=== PATIENT | female | born 1950 | race Caucasian/White ===

== ENCOUNTER → 2019-12-22 16:07 | Outpatient (CLI) | payer BC, SELFPAY ==
[2019-12-22 16:32] LABS: Basophils % 0.5 % (0.1-2.0); Eosinophils % 0.7 % (0.1-12.0); Hematocrit 45.4 % (37.0-47.0); Hemoglobin 14.6 g/dL (12.2-16.2); Lymphocytes # 1.3 K/mm3 (0.7-4.5); Lymphocytes % 21.9 % (10-50); Mean Corpuscular HGB Conc 32.1 g/dL (31.8-35.4); Mean Corpuscular Hemoglobin 29.5 pg (27.0-31.2); Mean Corpuscular Volume 91.9 fl (81-99); Mean Platelet Volume 7.6 fl (7.4-10.4); Monocytes # 0.4 K/mm3 (0.1-1.0); Monocytes % 6.2 % (1.7-9.3); Neutrophils # 4.3 K/mm3 (1.8-7.8); Neutrophils % 70.7 % (37.0-80.0); Platelet Count 302 K/mm3 (142-424); Red Blood Count 4.94 M/mm3 (4.20-5.40)
[2019-12-22 17:55] LABS: Chloride 101 mmol/L (98-107); Potassium 3.9 mmoL/L (3.5-5.1); Sodium 136 mmol/L (136-145)
[2019-12-22 17:58] LABS: Alanine Aminotransferase 186 U/L (12-78); Albumin Level 4.1 g/dl (3.5-5.0); Albumin/Globulin Ratio 1.5 (1.1-1.8); Alkaline Phosphatase 365 U/L (38-126); Anion Gap 12.9 mEq/L (5-15); Aspartate Amino Transferase 104 U/L (14-36); Blood Urea Nitrogen 11 mg/dl (7-17); Carbon Dioxide 26 mmol/L (22.0-30.0); Estimated Glomerular Filt Rate 99 ml/min (>60); GFR (African American) 120 ML/MIN (>60); Globulin 2.8 g/dL (1.3-3.2); Total Protein,Serum 6.9 g/dl (6.3-8.2)
[2019-12-22 17:59] LABS: Calcium 9.5 mg/dl (8.4-10.2); Glucose 136 mg/dl (74-100)
[2019-12-22 18:28] LABS: Thyroid Stimulating Hormone 2.89 uIU/mL (0.465-4.68)
== END ==
PROVIDERS: Visit Provider Nurse Practitioner Family
DX: L50.9 Urticaria, unspecified (principal); L23.9 Allergic contact dermatitis, unspecified cause
CPT/HCPCS: 36415; 80053; 84443; 85025

== ENCOUNTER → 2019-12-26 09:11 | Outpatient (CLI) | payer BC, SELFPAY ==
--- NOTE | 2019-12-26 09:18 | US_ITS ---
PROCEDURE: US ABDOMEN LIMITED CLINICAL INDICATION: ABN LIVER ENZYMES Abnormal liver function test COMPARISON: No exams were available for comparison FINDINGS: PANCREAS: Unremarkable. No obvious mass or abnormal fluid collection. No ductal dilatation LIVER: There is intra and extrahepatic biliary ductal dilatation. The common bile duct measures up to 15 mm. There is appropriate direction of blood flow within a non dilated portal vein. There is a small hyperechoic lesion along the anterior aspect of the right hepatic lobe nonspecific RIGHT KIDNEY: . GALLBLADDER: There is a small amount of sludge noted along the posterior wall the gallbladder. No stones, gallbladder wall thickening, or pericholecystic fluid. The gallbladder is mildly distended. The distal aspect of the common bile duct is not visualized. IMPRESSION: Intra and extrahepatic biliary ductal dilatation measuring up to 15 mm. Obstruction of the distal aspect of the common bile duct should be excluded. Recommend CT with contrast for further evaluation initially. If this is not conclusive then MRI with MRCP may provide further evaluation. Dictated by: Pramod Camilo MD 12/26/2019 14:16 Electronically signed by Pramod Camilo MD in [place] 12/26/2019 14:16
[2019-12-26 10:33] LABS: Basophils % 0.3 % (0.1-2.0); Eosinophils # 0.1 K/mm3 (0.0-0.4); Hematocrit 47.3 % (37.0-47.0); Hemoglobin 14.9 g/dL (12.2-16.2); Lymphocytes # 2.3 K/mm3 (0.7-4.5); Lymphocytes % 24.9 % (10-50); Mean Corpuscular HGB Conc 31.6 g/dL (31.8-35.4); Mean Corpuscular Hemoglobin 29.2 pg (27.0-31.2); Mean Corpuscular Volume 92.5 fl (81-99); Mean Platelet Volume 8.1 fl (7.4-10.4); Monocytes # 0.4 K/mm3 (0.1-1.0); Monocytes % 4.8 % (1.7-9.3); Neutrophils # 6.4 K/mm3 (1.8-7.8); Platelet Count 375 K/mm3 (142-424); Prothrombin Time 9.4 seconds (9.4-11.8); Red Blood Count 5.12 M/mm3 (4.20-5.40); Red Cell Distribution Width 13.2 % (11.5-17.5); White Blood Count 9.3 K/mm3 (4.8-10.8)
[2019-12-26 12:50] LABS: Chloride 101 mmol/L (98-107); Potassium 4.4 mmoL/L (3.5-5.1); Sodium 139 mmol/L (136-145)
[2019-12-26 12:52] LABS: Blood Urea Nitrogen 15 mg/dl (7-17); Estimated Glomerular Filt Rate 99 ml/min (>60); GFR (African American) 120 ML/MIN (>60)
[2019-12-26 12:53] LABS: Alanine Aminotransferase 342 U/L (12-78); Albumin Level 3.9 g/dl (3.5-5.0); Albumin/Globulin Ratio 1.4 (1.1-1.8); Alkaline Phosphatase 314 U/L (38-126); Anion Gap 11.4 mEq/L (5-15); Aspartate Amino Transferase 179 U/L (14-36); Calcium 9.6 mg/dl (8.4-10.2); Carbon Dioxide 31 mmol/L (22.0-30.0); Globulin 2.7 g/dL (1.3-3.2); Glucose 97 mg/dl (74-100); Total Protein,Serum 6.6 g/dl (6.3-8.2)
[2019-12-27 06:39] LABS: Hep A Ab, IgM Negative (Negative); Hepatitis B Core Antibody IgM Negative (Negative); Hepatitis B Surface Antigen Negative (Negative)
[2019-12-27 09:51] LABS: Hepatitis C Antibody <0.1 s/co ratio (0.0-0.9)
[2019-12-29 07:19] LABS: Antinuclear Antibodies, IFA Negative (.); Mitochondrial (M2) Antibody <20.0 Units (0.0-20.0)
== END ==
PROVIDERS: PCP Internal Medicine Adolescent Medicine; Visit Provider Nurse Practitioner Family
DX: R74.8 Abnormal levels of other serum enzymes (principal); E80.6 Other disorders of bilirubin metabolism
CPT/HCPCS: 36415; 76705; 80053; 80074; 85025; 85610; 86038; 86256

== ENCOUNTER 2020-01-06 09:13 | Day surgery (SDC) | payer BC, SELFPAY ==
--- NOTE | 2020-01-06 10:17 | SUR.PREOP ---
Pt. was registered and went to the waiting room. After waiting for a few minutes, she decided that she no longer wanted to have the procedure done due to anxiety about the procedure. After talking to Dr. Willson the patient decided to have the procedure rescheduled for next January 12.
--- NOTE | 2020-01-11 15:37 | SUR.PREOP ---
01/06/20-- talked to patient in waiting area. Patient wanted to re-schedule for next week.
== END 2020-01-06 10:00 | disposition home or self-care (01) ==
PROVIDERS: PCP Internal Medicine Adolescent Medicine; Visit Provider Internal Medicine Gastroenterology
DX: Z53.29 Procedure and treatment not carried out because of patient's decision for other reasons (principal)

== ENCOUNTER → 2020-01-18 13:17 | Outpatient (CLI) | payer BC, SELFPAY ==
[2020-01-18 14:13] LABS: Basophils # 0.2 K/mm3 (0-0.2); Basophils % 1.6 % (0.1-2.0); Eosinophils # 0.1 K/mm3 (0.0-0.4); Eosinophils % 1.1 % (0.1-12.0); Hematocrit 45.5 % (37.0-47.0); Lymphocytes # 2.2 K/mm3 (0.7-4.5); Lymphocytes % 23.2 % (10-50); Mean Corpuscular HGB Conc 30.7 g/dL (31.8-35.4); Mean Corpuscular Volume 97.6 fl (81-99); Mean Platelet Volume 8.8 fl (7.4-10.4); Monocytes # 0.4 K/mm3 (0.1-1.0); Monocytes % 4.6 % (1.7-9.3); Neutrophils # 6.5 K/mm3 (1.8-7.8); Neutrophils % 69.4 % (37.0-80.0); Platelet Count 434 K/mm3 (142-424); Red Blood Count 4.66 M/mm3 (4.20-5.40); Red Cell Distribution Width 14.5 % (11.5-17.5); White Blood Count 9.3 K/mm3 (4.8-10.8)
[2020-01-18 15:08] LABS: Alanine Aminotransferase 52 U/L (12-78); Albumin Level 4.1 g/dl (3.5-5.0); Albumin/Globulin Ratio 1.4 (1.1-1.8); Alkaline Phosphatase 319 U/L (38-126); Anion Gap 12.6 mEq/L (5-15); Aspartate Amino Transferase 49 U/L (14-36); Blood Urea Nitrogen 16 mg/dl (7-17); Calcium 9.7 mg/dl (8.4-10.2); Carbon Dioxide 22 mmol/L (22.0-30.0); Chloride 104 mmol/L (98-107); Estimated Glomerular Filt Rate 99 ml/min (>60); GFR (African American) 120 ML/MIN (>60); Glucose 148 mg/dl (74-100); Potassium 3.6 mmoL/L (3.5-5.1); Sodium 135 mmol/L (136-145); Total Protein,Serum 7.1 g/dl (6.3-8.2)
[2020-01-18 17:46] LABS: Amylase 58 U/L (30-110); Lipase 95 U/L (23-300)
[2020-01-20 11:20] LABS: CA 19-9 157 U/mL (0-35)
[2020-01-20 11:21] LABS: CEA 3.1 ng/mL (0.0-4.7); Cancer Antigen (CA) 125 22.2 U/mL (0.0-38.1)
[2020-01-20 14:09] LABS: Alkaline Phosphatase 386 IU/L (39-117); Bone Fraction: 14 % (14-68); Liver Fraction: 84 % (18-85)
[2020-01-20 14:50] LABS: Intestinal Frac.: 2 % (0-18)
== END ==
PROVIDERS: Visit Provider Nurse Practitioner Family
DX: R17 Unspecified jaundice (principal); R74.8 Abnormal levels of other serum enzymes; R63.4 Abnormal weight loss; E80.6 Other disorders of bilirubin metabolism; L50.9 Urticaria, unspecified
CPT/HCPCS: 36415; 80053; 82150; 82378; 83690; 84075; 84080; 85025; 86316

== ENCOUNTER → 2020-01-23 10:34 | Outpatient (CLI) | payer BC, SELFPAY ==
--- NOTE | 2020-01-23 10:53 | CT_ITS ---
PROCEDURE: CT ABDOMEN PELVIS WO/W CON CLINICAL INDICATION: JAUNDICE,DILATED BILE DUCT,HIGH SERUM CARBOHYDRATE Right upper quadrant pain COMPARISON: US ABDOMEN LIMITED from 12/26/2019 TECHNIQUE: IV Contrast: 75ML OPTIRAY 350 Oral Contrast none Axial images obtained with sagittal and coronal reformats. All CT scans at the facility use one or more dose reduction, viz: automated exposure control, ma/kV adjustment per patient size (including targeted exams where dose is matched to indication, i.e. head), or iterative reconstruction technique. FINDINGS: LOWER THORAX: No acute finding ABDOMEN & PELVIS: There is moderate dilatation of both intra and extrahepatic bile ducts. The common bile duct is enlarged measuring up to 1.8 cm in diameter. A definite common bile duct stone is not identified. The coronal reformatted images demonstrates abrupt occlusion of the distal common bile duct with suggestion thickening involving the distal most aspect of the common bile duct suspicious for a stricture. There is some mild heterogeneous density within mildly prominent pancreatic head. Pancreatic duct is also dilated. There is some rounding off of the uncinate process of the pancreatic head. There are several areas of decreased attenuation within the liver with a least 3 areas of decreased density 2 in the right hepatic lobe and 1 in the left hepatic lobe measuring up to 1.3 cm and may be due to hepatic cysts. There are few small epigastric and periportal lymph nodes. The gallbladder is distended The spleen has an unremarkable appearance. There is some minimal calcification involving the peripheral aspect of the right kidney with some sub adjacent low-density. The whole area measures approximately 1 cm. This is nonspecific. The left kidney and adrenal glands are unremarkable. There is no evidence of appendicitis or diverticulitis. There is colonic diverticulosis. There is a persistent area of thickening involving the mid to proximal aspect of the transverse colon. This is present on all 3 imaging phases with a length of approximately 6 cm. This could be due to an area of underdistention or an area of colitis. There is an area of sclerosis involving the right ilium laterally at 12 mm and could be due to a bone island. IMPRESSION: 1. Extensive intra and extrahepatic biliary ductal dilatation with abrupt occlusion/narrowing of the distal aspect of the common bile duct with pancreatic ductal dilatation indicating a double duct sign. The pancreatic head has a somewhat enlarged slightly heterogeneous appearance. Cannot exclude the possibility of an infiltrating mass in the head of the pancreas. MRI without and with enhancement may provide further evaluation. MRCP also suggested. A malignant or benign stricture at the ampullary is also consideration. Also consider ERCP for further evaluation. 2. Colonic diverticulosis without diverticulitis. 3. Probable hepatic hepatic cysts Dictated by: Pramod Camilo MD 01/23/2020 13:05 Electronically signed by Pramod Camilo MD in [place] 01/23/2020 13:05
[2020-01-23 11:07] LABS: Blood Urea Nitrogen 9 mg/dl (7-17); Estimated Glomerular Filt Rate 99 ml/min (>60); GFR (African American) 120 ML/MIN (>60)
[2020-01-23 11:12] LABS: Chloride 97 mmol/L (98-107); Sodium 132 mmol/L (136-145)
[2020-01-23 11:13] LABS: Potassium 3.4 mmoL/L (3.5-5.1)
[2020-01-23 11:15] LABS: Alanine Aminotransferase 56 U/L (12-78); Albumin/Globulin Ratio 1.1 (1.1-1.8); Alkaline Phosphatase 377 U/L (38-126); Anion Gap 11.4 mEq/L (5-15); Aspartate Amino Transferase 55 U/L (14-36); Bilirubin,Total 16.6 mg/dl (0.2-1.3); Carbon Dioxide 27 mmol/L (22.0-30.0); Globulin 3.7 g/dL (1.3-3.2); Total Protein,Serum 7.7 g/dl (6.3-8.2)
[2020-01-23 11:16] LABS: Glucose 153 mg/dl (74-100)
[2020-01-23 11:18] LABS: Basophils # 0.1 K/mm3 (0-0.2); Basophils % 0.5 % (0.1-2.0); Eosinophils # 0.2 K/mm3 (0.0-0.4); Eosinophils % 1.3 % (0.1-12.0); Hematocrit 42.7 % (37.0-47.0); Hemoglobin 13.3 g/dL (12.2-16.2); Lymphocytes # 1.9 K/mm3 (0.7-4.5); Lymphocytes % 16.9 % (10-50); Mean Corpuscular HGB Conc 31.2 g/dL (31.8-35.4); Mean Corpuscular Hemoglobin 29.2 pg (27.0-31.2); Mean Corpuscular Volume 93.7 fl (81-99); Monocytes # 0.6 K/mm3 (0.1-1.0); Neutrophils # 8.6 K/mm3 (1.8-7.8); Neutrophils % 76.3 % (37.0-80.0); Platelet Count 520 K/mm3 (142-424); Red Blood Count 4.56 M/mm3 (4.20-5.40); Red Cell Distribution Width 15.3 % (11.5-17.5); White Blood Count 11.3 K/mm3 (4.8-10.8)
== END ==
PROVIDERS: PCP Internal Medicine Adolescent Medicine; Visit Provider Nurse Practitioner Family
DX: K83.8 Other specified diseases of biliary tract (principal); R17 Unspecified jaundice; R97.8 Other abnormal tumor markers
CPT/HCPCS: 36415; 74178; 80053; 85025; Q9967

== ENCOUNTER → 2020-01-25 10:51 | Outpatient (CLI) | payer BC, SELFPAY ==
[2020-01-26 14:16] LABS: Covid-19 Nasal PCR Sendout Lex NOT DETECTED
== END ==
PROVIDERS: Visit Provider Internal Medicine Gastroenterology
DX: Z03.818 Encounter for observation for suspected exposure to other biological agents ruled out (principal)
CPT/HCPCS: U0004

== ENCOUNTER 2020-01-27 06:06 | Day surgery (SDC) | payer BC, SELFPAY ==
--- NOTE | 2020-01-24 13:51 | SUR.PREOP ---
01/24/2020 @ 1130--PHONE CALL MADE TO PATIENT. PATIENT UNDERSTANDS THAT LAB WORK AND COVID TESTING NEEDS TO BE COMPLETED BY 11 ON 01/25/2020. PATIENT UNDERSTANDS IF LAB WORK AND COVID-19 TESTS ARE NOT COMPLETED BY 12PM ON THAT DATE, THE SURGERY SCHEDULED WILL BE CANCELLED AND RESCHEDULED FOR ANOTHER TIME.
[2020-01-25 10:37] VITALS: BMI 26.6
[2020-01-27] VITALS (9 sets, daily range): BP systolic 128–149; BP diastolic 75–86; PULSE 70–137; RESP 18–20; TEMP 36.2–36.7; O2SAT 96–100
--- NOTE | 2020-01-27 06:30 | FL_ITS ---
PROCEDURE: FL ERCP CLINICAL INDICATION: abnormal liver function Obstructed common bile duct, possible pancreatic head mass COMPARISON: CT ABDOMEN PELVIS WO/W CON from 01/23/2020 FINDINGS: Fluoroscopy time: 5 minutes and 20 seconds Select images are submitted from the ERCP showing endoscope in place with contrast in the common bile duct with abrupt occlusion of the distal aspect of the common bile duct with biliary ductal dilatation. A stent was placed through the occlusion. IMPRESSION: Distal abrupt common bile duct obstruction status post stent placement. Malignant stricture is considered Dictated by: Pramod Camilo MD 01/31/2020 08:56 Electronically signed by Pramod Camilo MD in [place] 01/31/2020 08:56
--- NOTE | 2020-01-27 06:56 | HMH.PROC ---
[facility] Procedure Note Procedure Note:: ERCP procedure Report: Endoscopic retrograde cholangiopancreatography with biliary sphincterotomy, biopsies, brushings and stent placement Endoscopist: Vargas Willson II, MD Referring Physician: Eric Richmond M.D./RICH Larson Date of Procedure: January 27, 2020 Equipment: Olympus 180 side viewing endoscope duodenoscope Sedation: MAC sedation Indication: Mrs. Agudelo is a 69-year-old female who initially presented with pruritus. This had worsened. She also had noted some darkened urine. Lab work and Nohelia had shown normal CBC but her liver chemistries were elevated with AST 104, ALT 186 and total bilirubin 5.0. The patient's alkaline phosphatase was 365. The patient did have a CAT scan of the abdomen on January 25, 2020 and there was intra-and extrahepatic biliary ductal dilation with the common bile duct measuring up to 15 mm. Obstruction of the distal aspect of the common bile duct appeared to be present. The patient had anxiety about proceeding with ERCP initially. Repeat labs and CT scan have been performed within the last week. Her more recent CAT scan did show heterogeneous enlarged pancreas with a double duct sign with pancreatic and biliary dilation. The patient's total bilirubin increased to 16.6. The patient's CA-19-9 was elevated at 157. ERCP is performed for diagnostic/therapeutic purposes. Procedure: Prior to the procedure, a history and physical exam was performed, and patient's medications and allergies were reviewed. The risks, benefits and alternatives of the sedation and procedure were discussed with the patient. All questions were answered and informed consent was obtained. The patient was brought to the fluoroscopic radiology room. Patient identification and proposed procedure were verified by the physician and the nurse. The patient was placed in a swimmer's position between left lateral decubitus and prone position and the scope was passed under direct vision. Throughout the procedure, the patient's blood pressure, pulse, and oxygen saturations were monitored continuously. The ERCP was accomplished without difficulty. The patient tolerated the procedure well. Findings: The side-viewing duodenal scope was passed directly into the upper esophagus and advanced to the second portion of the duodenum. The esophagus, stomach and duodenum were grossly normal. The ampulla was well visualized. Both the pancreatic duct and common bile duct were cannulated. There was stricturing of the pancreatic duct in the head of the gland. Full filling of contrast of the body and tail were not performed. Next, the common bile duct was cannulated. The cholangiogram did show a distal CBD stricture that was 18 to 20 mm in length. There was proximal biliary ductal dilation within the intra-and extrahepatic biliary system. The proximal common bile duct was approximately 17 mm diameter. Next, a biliary sphincterotomy was performed. Cold biopsy forceps were then directly used to take biopsies of the stricture and this was done under fluoroscopic guidance with some cannulation of the bile duct with the biopsy forceps. Next, brushings were performed of the stricture. Lastly, because of uncertainty about resectability, a 10 Occitan/7 cm straight Stites stent was placed and deployed across the stricture with excellent decompression of the biliary system. The procedure was then ended after deployment of the stent. Impression: 1. 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 We will discuss the findings and will likely send to pancreatic surgeon since there is not yet determination of resectability. She will likely need endoscopic ultrasound or more definitive pancreatic protocol imaging to determin
--- NOTE | 2020-01-27 08:04 | HMH.ANESCL ---
[facility] Anesthesia Checklist - Patient Identification Patient Identification: Arm Band, Verbal (Name & ) - Structural Data Admitted From: Home Planned Operative Procedure/s: ercp Consent for Planned Operative Procedure(s) Verified: Yes Verified Documents: History and Physical - NPO Status Verified Time NPO: 00:00 - Additional verifications Anesthesia Reactions: No Hx Blood Transfusions: No Blood Transfusion Reaction: No Cephalosporin Allergy: No Previous Colonoscopy: No - Cardiovascular Assessment Heart Sounds: S1 & S2 Pulse Strength: Baseline Pulse Rhythm: Regular - Airway Assessment C-Spine Mobility Assessed: Yes TMJ Mobility Assessed: No Dentition: Good Dentition - Neurological Assessment Level of Consciousness: Awake, Alert, Appropriate Hx Seizures: No Numbness or tingling in extremities: No - Anesthesia Plan Anesthesia Risk discussed: Yes Anesthesia Plan: Verified ASA Class: II Anesthesia Type: MAC [facility] History I have reviewed the patient's past medical history: Yes Medical History: Reports:: MRSA (breast) Denies:: Cancer, Diabetes Mellitus Type 1, Diabetes Mellitus Type 2, Internal Pacemaker, Seizures *Have you ever received a pneumonia vaccine?: No *Have you received a flu vaccine this season?: No Anesthesia experience/problems:: none Other Surgeries: No: Pacemaker Amputation: No Fractures: Yes - *Social History Educational Level: Attended College Smoking Status: Never smoker Alcohol Intake: never Substance Use Type: other *Occupational Status:: employed Housing: house Household Members: none *Travel in the last 8 weeks: None Family Hx:: Unable to obtain
== END 2020-01-27 09:00 | disposition home or self-care (01) ==
LOC: OUTP 06:07
PROVIDERS: PCP Internal Medicine Adolescent Medicine; Visit Provider Internal Medicine Gastroenterology
PROC: (CPT 43274; principal; 2020-01-27 07:00)
DX: K83.1 Obstruction of bile duct (principal); D49.0 Neoplasm of unspecified behavior of digestive system
CPT/HCPCS: 43274; 74330; C2617; J2704; Q9967

== ENCOUNTER → 2020-04-12 10:11 | Outpatient (CLI) | payer BC, SELFPAY ==
[2020-04-12 11:35] LABS: Basophils % 0.4 % (0.1-2.0); Eosinophils # 0.5 K/mm3 (0.0-0.4); Eosinophils % 4.6 % (0.1-12.0); Hematocrit 38.4 % (37.0-47.0); Hemoglobin 12.9 g/dL (12.2-16.2); Lymphocytes # 1.8 K/mm3 (0.7-4.5); Lymphocytes % 17.1 % (10-50); Mean Corpuscular HGB Conc 33.7 g/dL (31.8-35.4); Mean Corpuscular Hemoglobin 30.1 pg (27.0-31.2); Mean Corpuscular Volume 89.3 fl (81-99); Mean Platelet Volume 7.7 fl (7.4-10.4); Monocytes # 0.6 K/mm3 (0.1-1.0); Monocytes % 5.8 % (1.7-9.3); Neutrophils # 7.6 K/mm3 (1.8-7.8); Neutrophils % 72.2 % (37.0-80.0); Platelet Count 399 K/mm3 (142-424); Red Cell Distribution Width 13.6 % (11.5-17.5); White Blood Count 10.5 K/mm3 (4.8-10.8)
[2020-04-12 11:44] LABS: Chloride 97 mmol/L (98-107); Potassium 4.5 mmoL/L (3.5-5.1); Sodium 136 mmol/L (136-145)
[2020-04-12 11:47] LABS: Anion Gap 16.5 mEq/L (5-15); Blood Urea Nitrogen 7 mg/dl (7-17); Calcium 9.7 mg/dl (8.4-10.2); Carbon Dioxide 27 mmol/L (22.0-30.0); Estimated Glomerular Filt Rate 123 ml/min (>60); GFR (African American) 148 ML/MIN (>60); Glucose 122 mg/dl (74-100)
[2020-04-12 16:58] LABS: Coronavirus 19 IgG Antibody Negative (Negative); Coronavirus 19 IgM Antibody Negative (Negative)
== END ==
PROVIDERS: Visit Provider Surgery
DX: C25.9 Malignant neoplasm of pancreas, unspecified (principal); Z01.818 Encounter for other preprocedural examination
CPT/HCPCS: 36415; 80048; 85025; 86328

== ENCOUNTER 2020-04-13 06:00 | Day surgery (SDC) | payer BC, SELFPAY ==
[2020-04-11 09:21] VITALS: BMI 24.2
[2020-04-13] VITALS (9 sets, daily range): BP systolic 132–156; BP diastolic 66–102; PULSE 79–119; RESP 12–18; TEMP 36.2–36.9; O2SAT 93–98
--- NOTE | 2020-04-13 | XR_ITS ---
PROCEDURE: XR CHEST AP CLINICAL HISTORY: PORT A CATH PLACEMENT IN OR COMPARISON: No exams were available for comparison FINDINGS: A right subclavian Port-A-Cath is placed with the tip terminating in the mid SVC. No acute bony abnormalities. The cardiomediastinal silhouette and pulmonary vascularity are within normal limits. The lungs are under expanded. There is left basilar linear subsegmental atelectasis. No demonstrated consolidation or pneumothorax. There is obscuration of the left costophrenic sulcus. Osteopenia. Chronic mild bony deformity of the left humeral neck. IMPRESSION: 1. Adequately placed a right Port-A-Cath. 2. No pneumothorax. Lungs are under expanded. Left basilar linear atelectasis. Dictated by: Lianna Ramirez 04/13/2020 16:42 Electronically signed by Lianna Ramirez in [place] 04/13/2020 16:42
--- NOTE | 2020-04-13 08:00 | P.PN_ITS ---
[facility] Anesthesia Checklist - Structural Data Admitted From: Home Planned Operative Procedure/s: james cath Consent for Planned Operative Procedure(s) Verified: Yes - Additional verifications Anesthesia Reactions: No Hx Blood Transfusions: No Blood Transfusion Reaction: No - Airway Assessment TMJ Mobility Assessed: Yes Dentition: Poor Dentition - Neurological Assessment Level of Consciousness: Awake, Alert, Appropriate - Anesthesia Plan Anesthesia Risk discussed: Yes Anesthesia Plan: Verified ASA Class: III Anesthesia Type: General - Preoperative Comments Pre-Operative Comments: pt is extremely nervous, beyond normally nervous. Pt will not listen to risks, pt interupts and will not cooperate. [facility] History I have reviewed the patient's past medical history: Yes Medical History: Denies:: Cancer, Diabetes Mellitus Type 1, Diabetes Mellitus Type 2, Internal Pacemaker, MRSA, Seizures *Have you ever received a pneumonia vaccine?: No *Have you received a flu vaccine this season?: Yes Other Medical History: Denies: Blood Transfusion Reaction Anesthesia experience/problems:: none Other Surgeries: Yes: Other (Whipple surgery). No: Pacemaker Amputation: No Fractures: Yes - *Social History Last grade of school completed: Some college Smoking Status: Never smoker Alcohol Intake: never Substance Use Type: other *Occupational Status:: employed Housing: house Household Members: none *Travel in the last 8 weeks: None Family Hx:: Unable to obtain
--- NOTE | 2020-04-13 08:34 | HMH.OPNOTE ---
Date of procedure: 04/13/20 Pre-op Diagnosis:: Pancreatic adenocarcinoma Post-op Diagnosis:: Same Procedure performed:: Port-A-Cath placement Surgeon:: Aristides Hughes MD LABEL MACHINE OPERATOR:: Noah Gunderson Anesthesia: LMA Estimated blood loss (mL): 10 Operative findings:: Port tip confirmed fluoroscopically Port flushed with heparinized saline without difficulty Operative note:: After informed consent was obtained the patient was taken to the operating room placed in the supine position. General anesthesia with laryngeal mask airway was achieved. The patient's upper chest and neck were prepped and draped in a sterile fashion bilaterally. After infiltration local anesthetic a large-bore needle was utilized to access the right subclavian vein. The guidewire was placed in position. A transverse incision was made at the guidewire exit site. The subcutaneous port was then created with a combination of blunt dissection and electrocautery. The dilator/sheath was then placed over the guidewire. The dilator and guidewire removed. The port catheter was placed in position and confirmed fluoroscopically. The sheath was removed. The catheter was cut to appropriate length and secured to the hub. The port hub was then secured to the underlying fascia with interrupted Prolene. The deep subcutaneous tissue was reapproximated with interrupted Vicryl and skin was then closed with 4-0 Monocryl in a subcuticular manner. The port was flushed with heparinized saline without difficulty. Sterile dressings were applied and the patient was transferred to recovery in stable condition. Chest x-ray is pending. Condition: stable Disposition: PACU Specimens:: None Complications:: No immediate
--- NOTE | 2020-04-13 08:41 | HMH.ANESI ---
[facility] Anesthesia Record Part I Intake, IV Amount: 1,200 Estimated blood loss (mL): 0 Urine output (mL): 0 Blood Pressure: 140/80 SaO2: 93 Pulse Rate: 79 Respiratory Rate: 12 Temperature: 97.2 F Patient is:: Awake, Stable Stable to PACU at:: 08:40
--- NOTE | 2020-04-13 09:46 | PC.NURSE ---
0850- rad @ [facility] getting xrays
== END 2020-04-13 09:50 | disposition home or self-care (01) ==
LOC: OR 06:04
PROVIDERS: PCP Internal Medicine Adolescent Medicine; Visit Provider Surgery
PROC: (CPT 36561; principal; 2020-04-13 07:30)
DX: C25.9 Malignant neoplasm of pancreas, unspecified (principal); Z79.899 Other long term (current) drug therapy; Z86.14 Personal history of Methicillin resistant Staphylococcus aureus infection; Z88.0 Allergy status to penicillin
CPT/HCPCS: 36561; 71045; 76000; 96374; C1788; J1642; J2405

== ENCOUNTER → 2020-04-16 08:47 | Outpatient (CLI) | payer BC, SELFPAY ==
--- NOTE | 2020-04-16 08:54 | CT_ITS ---
PROCEDURE: CT ABDOMEN PELVIS W CON CLINICAL INDICATION: PANCREATIC CA Follow-up pancreatic cancer COMPARISON: CT ABDOMEN PELVIS WO/W CON from 01/23/2020 RF FL ERCP from 01/27/2020 ZERO IMAGE STUDY from 04/13/2020 TECHNIQUE: IV Contrast: 75ML OPTIRAY 350 Oral Contrast None Axial images obtained with sagittal and coronal reformats. All CT scans at the facility use one or more dose reduction, viz: automated exposure control, ma/kV adjustment per patient size (including targeted exams where dose is matched to indication, i.e. head), or iterative reconstruction technique. FINDINGS: There are numerous hypodense lesions of the liver in keeping with hepatic cyst. There has been an interval Whipple procedure. A pancreatic stent is present in the body of the pancreas. Hypodense collection is present in the previously noted region of the common bile duct measuring 1.8 cm with some peripheral calcification. No intestinal obstruction or free air. No evidence of abscess. There is a mild amount of retained colonic feces throughout the colon with colonic diverticulosis without diverticulitis. Postsurgical changes are present involving the anterior abdominal wall. No bony destructive process is evident. IMPRESSION: 1. Postsurgical changes from interval Whipple procedure with pneumobilia noted and multiple hepatic cysts. No convincing evidence of metastatic disease. A pancreatic stent is in place. 2. Moderate amount of retained colonic feces. 3. There is a small cystic collection in the region the pancreatic head possibly due to postsurgical seroma with some faint calcifications at this area. The Dictated b Pramod Camilo MD 04/17/2020 12:38 Pramod Camilo MD in [place] 04/17/2020 12:38
--- NOTE | 2020-04-16 08:54 | CT_ITS ---
PROCEDURE: CT CHEST W CON CLINCAL INDICATION: PANCREATIC CA Follow-up pancreatic cancer, evaluate for metastatic disease COMPARISON: CT ABDOMEN PELVIS W CON from 04/16/2020 TECHNIQUE: IV Contrast: 75ml Optiray 350 Axial images obtained with sagittal and coronal reformats. All CT scans at the facility use one or more dose reduction, viz: automated exposure control, ma/kV adjustment per patient size (including targeted exams where dose is matched to indication, i.e. head), or iterative reconstruction technique. FINDINGS: HEART AND MEDIASTINAL STRUCTURES: Unremarkable. LUNGS AND PLEURAL SPACES: There are mild atelectatic or fibrotic changes in the right lung base as well as the lingula in the left lower lobe. No suspicious pulmonary nodules. Calcified granuloma is present in the left upper lobe BONY STRUCTURES: No acute bony abnormalities apparent. UPPER ABDOMEN: Please see abdomen report ADDITIONAL FINDINGS: No other significant abnormalities. IMPRESSION: No convincing evidence of metastatic disease. Mild atelectatic or fibrotic changes in both lower lobes and lingula Dictated b Pramod Camilo MD 04/17/2020 12:30 Pramod Camilo MD in [place] 04/17/2020 12:30
== END ==
PROVIDERS: PCP Internal Medicine Adolescent Medicine; Visit Provider Internal Medicine Medical Oncology
DX: C25.9 Malignant neoplasm of pancreas, unspecified (principal)
CPT/HCPCS: 71260; 74177; Q9967

== ENCOUNTER 2020-04-23 08:41 | Outpatient (CLI) | payer BC, SELFPAY ==
[2020-04-23] VITALS (27 sets, daily range): BP systolic 123–150; BP diastolic 74–86; PULSE 68–86; RESP 20; TEMP 36.9–37; O2SAT 95–98
== END 2020-04-23 17:31 | disposition home health service (06) ==
LOC: INF 08:41
PROVIDERS: Visit Provider Internal Medicine Medical Oncology
DX: Z51.11 Encounter for antineoplastic chemotherapy (principal); C25.9 Malignant neoplasm of pancreas, unspecified
CPT/HCPCS: 96413; 96415; 96417; J0640; J7060; J9206; J9263; Q0166

== ENCOUNTER 2020-05-03 12:39 | Outpatient (CLI) | payer BC, MEDICARE, SELFPAY ==
[2020-05-03 12:40] VITALS: BMI 23.3
[2020-05-03 12:55] LABS: Basophils % 0.1 % (0.1-2.0); Eosinophils # 0.1 K/mm3 (0.0-0.4); Hematocrit 40.1 % (37.0-47.0); Hemoglobin 13.3 g/dL (12.2-16.2); Lymphocytes # 1.4 K/mm3 (0.7-4.5); Lymphocytes % 21.7 % (10-50); Mean Corpuscular HGB Conc 33.3 g/dL (31.8-35.4); Mean Corpuscular Hemoglobin 28.7 pg (27.0-31.2); Mean Corpuscular Volume 86.2 fl (81-99); Mean Platelet Volume 6.9 fl (7.4-10.4); Monocytes # 0.4 K/mm3 (0.1-1.0); Monocytes % 5.6 % (1.7-9.3); Neutrophils # 4.5 K/mm3 (1.8-7.8); Neutrophils % 70.6 % (37.0-80.0); Platelet Count 382 K/mm3 (142-424); Red Blood Count 4.65 M/mm3 (4.20-5.40); Red Cell Distribution Width 13.9 % (11.5-17.5); White Blood Count 6.3 K/mm3 (4.8-10.8)
[2020-05-03 13:01] LABS: Chloride 99 mmol/L (98-107); Potassium 3.5 mmoL/L (3.5-5.1); Sodium 133 mmol/L (136-145)
[2020-05-03 13:03] LABS: Blood Urea Nitrogen 8 mg/dl (7-17)
[2020-05-03 13:04] LABS: Alanine Aminotransferase 69 U/L (12-78); Albumin Level 3.8 g/dl (3.5-5.0); Albumin/Globulin Ratio 1.3 (1.1-1.8); Alkaline Phosphatase 158 U/L (38-126); Anion Gap 13.5 mEq/L (5-15); Aspartate Amino Transferase 51 U/L (14-36); Bilirubin,Total 0.8 mg/dl (0.2-1.3); Calcium 9.8 mg/dl (8.4-10.2); Carbon Dioxide 24 mmol/L (22.0-30.0); Creatinine Clearance Estimated 56 mL/min (50-200); Estimated Glomerular Filt Rate 123 ml/min (>60); GFR (African American) 148 ML/MIN (>60); Globulin 2.9 g/dL (1.3-3.2); Glucose 159 mg/dl (74-100); Total Protein,Serum 6.7 g/dl (6.3-8.2)
[2020-05-03 14:00] VITALS: BP 110/77; PULSE 121; RESP 20; TEMP 36.6
[2020-05-03 14:30] VITALS: BP 135/66; PULSE 107; RESP 20
[2020-05-03 15:00] VITALS: BP 153/73; PULSE 108; RESP 18
== END 2020-05-03 15:05 | disposition home or self-care (01) ==
LOC: INF 12:39
PROVIDERS: Visit Provider Internal Medicine Medical Oncology
DX: C25.9 Malignant neoplasm of pancreas, unspecified (principal)
CPT/HCPCS: 80053; 85025; 96360; 96375; J1642; J2405

== ENCOUNTER 2020-05-14 08:28 | Outpatient (CLI) | payer BC, MEDICARE, SELFPAY ==
[2020-05-14] VITALS (16 sets, daily range): BP systolic 112–178; BP diastolic 74–89; PULSE 68–115; RESP 20; TEMP 36.9; O2SAT 95–98; BMI 23.6
[2020-05-14 08:52] LABS: Basophils # 0.1 K/mm3 (0-0.2); Basophils % 0.7 % (0.1-2.0); Eosinophils # 0.2 K/mm3 (0.0-0.4); Eosinophils % 2.4 % (0.1-12.0); Hematocrit 38.3 % (37.0-47.0); Hemoglobin 13.2 g/dL (12.2-16.2); Lymphocytes # 2.2 K/mm3 (0.7-4.5); Lymphocytes % 22.2 % (10-50); Mean Corpuscular HGB Conc 34.4 g/dL (31.8-35.4); Mean Corpuscular Hemoglobin 28.9 pg (27.0-31.2); Mean Corpuscular Volume 84.1 fl (81-99); Mean Platelet Volume 7.5 fl (7.4-10.4); Monocytes # 0.6 K/mm3 (0.1-1.0); Monocytes % 6.1 % (1.7-9.3); Neutrophils # 6.9 K/mm3 (1.8-7.8); Neutrophils % 68.7 % (37.0-80.0); Platelet Count 356 K/mm3 (142-424); Red Blood Count 4.55 M/mm3 (4.20-5.40); Red Cell Distribution Width 14.1 % (11.5-17.5); White Blood Count 10.1 K/mm3 (4.8-10.8)
[2020-05-14 08:53] LABS: Chloride 101 mmol/L (98-107); Potassium 3.4 mmoL/L (3.5-5.1); Sodium 135 mmol/L (136-145)
[2020-05-14 08:56] LABS: Alanine Aminotransferase 39 U/L (12-78); Albumin Level 3.2 g/dl (3.5-5.0); Albumin/Globulin Ratio 1.1 (1.1-1.8); Alkaline Phosphatase 158 U/L (38-126); Anion Gap 8.4 mEq/L (5-15); Aspartate Amino Transferase 27 U/L (14-36); Bilirubin,Total 0.3 mg/dl (0.2-1.3); Blood Urea Nitrogen 5 mg/dl (7-17); Calcium 8.8 mg/dl (8.4-10.2); Carbon Dioxide 29 mmol/L (22.0-30.0); Creatinine Clearance Estimated 56 mL/min (50-200); Estimated Glomerular Filt Rate 221 ml/min (>60); GFR (African American) 268 ML/MIN (>60); Globulin 2.8 g/dL (1.3-3.2); Glucose 120 mg/dl (74-100)
== END 2020-05-14 17:10 | disposition home or self-care (01) ==
LOC: INF 08:28
PROVIDERS: Visit Provider Internal Medicine Medical Oncology
DX: C25.9 Malignant neoplasm of pancreas, unspecified (principal); Z51.11 Encounter for antineoplastic chemotherapy
CPT/HCPCS: 80053; 85025; 96413; 96415; 96417; J0640; J9206; J9263; Q0166

== ENCOUNTER 2020-05-28 08:28 | Outpatient (CLI) | payer BC, MEDICARE, SELFPAY ==
[2020-05-28] VITALS (17 sets, daily range): BP systolic 136–160; BP diastolic 73–98; PULSE 84–99; RESP 18–20; TEMP 36.7; O2SAT 97–99; BMI 23.7
[2020-05-28 09:01] LABS: Basophils % 0.2 % (0.1-2.0); Eosinophils # 0.4 K/mm3 (0.0-0.4); Eosinophils % 5.6 % (0.1-12.0); Hematocrit 36.7 % (37.0-47.0); Hemoglobin 12.5 g/dL (12.2-16.2); Lymphocytes # 1.7 K/mm3 (0.7-4.5); Lymphocytes % 25.9 % (10-50); Mean Corpuscular HGB Conc 34.2 g/dL (31.8-35.4); Mean Corpuscular Hemoglobin 28.6 pg (27.0-31.2); Mean Corpuscular Volume 83.7 fl (81-99); Mean Platelet Volume 7.1 fl (7.4-10.4); Monocytes # 0.5 K/mm3 (0.1-1.0); Monocytes % 7.2 % (1.7-9.3); Neutrophils % 61.2 % (37.0-80.0); Platelet Count 268 K/mm3 (142-424); Red Blood Count 4.39 M/mm3 (4.20-5.40); Red Cell Distribution Width 15.5 % (11.5-17.5); White Blood Count 6.5 K/mm3 (4.8-10.8)
[2020-05-28 09:08] LABS: Chloride 105 mmol/L (98-107)
[2020-05-28 09:09] LABS: Potassium 3.4 mmoL/L (3.5-5.1); Sodium 139 mmol/L (136-145)
[2020-05-28 09:11] LABS: Alanine Aminotransferase 46 U/L (12-78); Albumin Level 3.4 g/dl (3.5-5.0); Albumin/Globulin Ratio 1.3 (1.1-1.8); Alkaline Phosphatase 149 U/L (38-126); Anion Gap 11.4 mEq/L (5-15); Aspartate Amino Transferase 34 U/L (14-36); Bilirubin,Total 0.3 mg/dl (0.2-1.3); Blood Urea Nitrogen 3 mg/dl (7-17); Carbon Dioxide 26 mmol/L (22.0-30.0); Creatinine Clearance Estimated 57 mL/min (50-200); Estimated Glomerular Filt Rate 159 ml/min (>60); GFR (African American) 192 ML/MIN (>60); Globulin 2.7 g/dL (1.3-3.2); Total Protein,Serum 6.1 g/dl (6.3-8.2)
[2020-05-28 09:12] LABS: Glucose 109 mg/dl (74-100)
== END 2020-05-28 17:05 | disposition home or self-care (01) ==
LOC: INF 08:28
PROVIDERS: Visit Provider Internal Medicine Medical Oncology
DX: Z51.11 Encounter for antineoplastic chemotherapy (principal); C80.1 Malignant (primary) neoplasm, unspecified; C25.9 Malignant neoplasm of pancreas, unspecified
CPT/HCPCS: 80053; 85025; 96413; 96415; 96417; J0640; J1642; J8501; J9206; J9263; Q0166

== ENCOUNTER 2020-06-11 08:35 | Outpatient (CLI) | payer BC, MEDICARE, SELFPAY ==
[2020-06-11] VITALS (23 sets, daily range): BP systolic 132–181; BP diastolic 64–99; PULSE 57–120; RESP 18–20; O2SAT 98; BMI 23.8
[2020-06-11 08:57] LABS: Chloride 105 mmol/L (98-107); Potassium 3.6 mmoL/L (3.5-5.1); Sodium 138 mmol/L (136-145)
[2020-06-11 09:00] LABS: Alanine Aminotransferase 41 U/L (12-78); Albumin Level 3.7 g/dl (3.5-5.0); Albumin/Globulin Ratio 1.4 (1.1-1.8); Alkaline Phosphatase 136 U/L (38-126); Anion Gap 10.6 mEq/L (5-15); Aspartate Amino Transferase 41 U/L (14-36); Bilirubin,Total 0.3 mg/dl (0.2-1.3); Blood Urea Nitrogen 6 mg/dl (7-17); Calcium 9.4 mg/dl (8.4-10.2); Carbon Dioxide 26 mmol/L (22.0-30.0); Creatinine Clearance Estimated 57 mL/min (50-200); Estimated Glomerular Filt Rate 159 ml/min (>60); GFR (African American) 192 ML/MIN (>60); Globulin 2.7 g/dL (1.3-3.2); Glucose 140 mg/dl (74-100); Total Protein,Serum 6.4 g/dl (6.3-8.2)
[2020-06-11 09:07] LABS: Hematocrit 32.3 % (37.0-47.0); Mean Corpuscular HGB Conc 40.2 g/dL (31.8-35.4); Mean Corpuscular Hemoglobin 35.3 pg (27.0-31.2); Mean Corpuscular Volume 87.8 fl (81-99); Mean Platelet Volume 6.7 fl (7.4-10.4); Platelet Count 204 K/mm3 (142-424); Red Blood Count 3.67 M/mm3 (4.20-5.40); Red Cell Distribution Width 16.1 % (11.5-17.5); White Blood Count 6.1 K/mm3 (4.8-10.8)
[2020-06-11 09:08] LABS: Basophils % 0.5 % (0.1-2.0); Eosinophils # 0.2 K/mm3 (0.0-0.4); Eosinophils % 2.6 % (0.1-12.0); Lymphocytes # 1.5 K/mm3 (0.7-4.5); Monocytes # 0.5 K/mm3 (0.1-1.0); Monocytes % 8.3 % (1.7-9.3); Neutrophils # 3.9 K/mm3 (1.8-7.8); Neutrophils % 63.7 % (37.0-80.0)
== END 2020-06-11 17:20 | disposition home or self-care (01) ==
LOC: INF 08:39
PROVIDERS: Visit Provider Internal Medicine Medical Oncology
DX: Z51.11 Encounter for antineoplastic chemotherapy (principal); C25.9 Malignant neoplasm of pancreas, unspecified
CPT/HCPCS: 80053; 85025; 96413; 96415; 96417; J0640; J9206; J9263; Q0166

== ENCOUNTER 2020-06-25 08:10 | Outpatient (CLI) | payer BC, MEDICARE, SELFPAY ==
[2020-06-25] VITALS (26 sets, daily range): BP systolic 130–193; BP diastolic 58–104; PULSE 85–113; RESP 18–20; BMI 24.2
[2020-06-25 08:39] LABS: Basophils % 0.4 % (0.1-2.0); Eosinophils # 0.2 K/mm3 (0.0-0.4); Eosinophils % 2.6 % (0.1-12.0); Hematocrit 39.1 % (37.0-47.0); Hemoglobin 12.6 g/dL (12.2-16.2); Lymphocytes # 1.8 K/mm3 (0.7-4.5); Lymphocytes % 25.1 % (10-50); Mean Corpuscular HGB Conc 32.2 g/dL (31.8-35.4); Mean Corpuscular Hemoglobin 28.7 pg (27.0-31.2); Mean Corpuscular Volume 89.1 fl (81-99); Mean Platelet Volume 7.2 fl (7.4-10.4); Monocytes # 0.6 K/mm3 (0.1-1.0); Monocytes % 8.8 % (1.7-9.3); Neutrophils # 4.5 K/mm3 (1.8-7.8); Neutrophils % 63.1 % (37.0-80.0); Platelet Count 180 K/mm3 (142-424); Red Blood Count 4.39 M/mm3 (4.20-5.40); Red Cell Distribution Width 16.3 % (11.5-17.5); White Blood Count 7.1 K/mm3 (4.8-10.8)
[2020-06-25 08:47] LABS: Chloride 104 mmol/L (98-107); Potassium 3.6 mmoL/L (3.5-5.1); Sodium 138 mmol/L (136-145)
[2020-06-25 08:49] LABS: Blood Urea Nitrogen 8 mg/dl (7-17); Creatinine Clearance Estimated 58 mL/min (50-200); Estimated Glomerular Filt Rate 123 ml/min (>60); GFR (African American) 148 ML/MIN (>60)
[2020-06-25 08:50] LABS: Alanine Aminotransferase 38 U/L (12-78); Albumin Level 4.1 g/dl (3.5-5.0); Albumin/Globulin Ratio 1.4 (1.1-1.8); Alkaline Phosphatase 162 U/L (38-126); Anion Gap 10.6 mEq/L (5-15); Aspartate Amino Transferase 34 U/L (14-36); Bilirubin,Total 0.9 mg/dl (0.2-1.3); Calcium 9.8 mg/dl (8.4-10.2); Carbon Dioxide 27 mmol/L (22.0-30.0); Glucose 167 mg/dl (74-100); Total Protein,Serum 7.1 g/dl (6.3-8.2)
== END 2020-06-25 17:25 | disposition home or self-care (01) ==
LOC: INF 08:15
PROVIDERS: Visit Provider Internal Medicine Medical Oncology
DX: Z51.11 Encounter for antineoplastic chemotherapy (principal); C25.9 Malignant neoplasm of pancreas, unspecified
CPT/HCPCS: 80053; 85025; 96413; 96415; 96417; J0640; J9206; J9263; Q0166

== ENCOUNTER → 2020-07-09 08:42 | Outpatient (CLI) | payer BC, MEDICARE, SELFPAY ==
[2020-07-09] VITALS (18 sets, daily range): BP systolic 131–170; BP diastolic 74–110; PULSE 68–115; RESP 20; TEMP 36.9–37.1; O2SAT 95–98; BMI 24.2; BMI 24.0
[2020-07-09 08:54] LABS: Basophils % 0.3 % (0.1-2.0); Eosinophils # 0.1 K/mm3 (0.0-0.4); Eosinophils % 1.8 % (0.1-12.0); Hematocrit 37.3 % (37.0-47.0); Hemoglobin 13.3 g/dL (12.2-16.2); Lymphocytes # 1.2 K/mm3 (0.7-4.5); Lymphocytes % 24.5 % (10-50); Mean Corpuscular HGB Conc 35.7 g/dL (31.8-35.4); Mean Corpuscular Hemoglobin 32.2 pg (27.0-31.2); Mean Corpuscular Volume 90.4 fl (81-99); Mean Platelet Volume 7.3 fl (7.4-10.4); Monocytes # 0.4 K/mm3 (0.1-1.0); Monocytes % 9.4 % (1.7-9.3); Neutrophils % 63.9 % (37.0-80.0); Platelet Count 167 K/mm3 (142-424); Red Blood Count 4.13 M/mm3 (4.20-5.40); Red Cell Distribution Width 16.7 % (11.5-17.5); White Blood Count 4.7 K/mm3 (4.8-10.8)
[2020-07-09 08:55] LABS: Chloride 105 mmol/L (98-107); Potassium 3.6 mmoL/L (3.5-5.1); Sodium 139 mmol/L (136-145)
[2020-07-09 08:58] LABS: Alanine Aminotransferase 58 U/L (12-78); Albumin Level 4.2 g/dl (3.5-5.0); Albumin/Globulin Ratio 1.4 (1.1-1.8); Alkaline Phosphatase 199 U/L (38-126); Anion Gap 12.6 mEq/L (5-15); Aspartate Amino Transferase 61 U/L (14-36); Bilirubin,Total 0.4 mg/dl (0.2-1.3); Blood Urea Nitrogen 10 mg/dl (7-17); Calcium 9.8 mg/dl (8.4-10.2); Carbon Dioxide 25 mmol/L (22.0-30.0); Creatinine Clearance Estimated 58 mL/min (50-200); Estimated Glomerular Filt Rate 123 ml/min (>60); GFR (African American) 148 ML/MIN (>60); Glucose 148 mg/dl (74-100); Total Protein,Serum 7.2 g/dl (6.3-8.2)
== END ==
PROVIDERS: Visit Provider Internal Medicine Medical Oncology
DX: Z51.11 Encounter for antineoplastic chemotherapy (principal); C25.9 Malignant neoplasm of pancreas, unspecified
CPT/HCPCS: 80053; 85025; 96413; 96415; 96417; J0640; J9206; J9263; Q0166

== ENCOUNTER → 2020-07-17 09:21 | Outpatient (CLI) | payer BC, SELFPAY ==
--- NOTE | 2020-07-17 09:24 | CT_ITS ---
PROCEDURE: CT CHEST WO/W CON CLINCAL INDICATION: PANCREATIC CA Follow-up pancreatic cancer COMPARISON: CT CT CHEST W CON from 04/16/2020 TECHNIQUE: IV Contrast: 75ml Isovue 370 Axial images obtained with sagittal and coronal reformats. All CT scans at the facility use one or more dose reduction, viz: automated exposure control, ma/kV adjustment per patient size (including targeted exams where dose is matched to indication, i.e. head), or iterative reconstruction technique. FINDINGS: HEART AND MEDIASTINAL STRUCTURES: No mediastinal or hilar mass or adenopathy. MediPort catheter is present from the right subclavian approach with tip in the region the SVC. LUNGS AND PLEURAL SPACES: Atelectatic or fibrotic changes are present in the left lower lobe. BONY STRUCTURES: Old left-sided rib fractures UPPER ABDOMEN: Unremarkable. ADDITIONAL FINDINGS: No other significant abnormalities. IMPRESSION: Overall no significant change with no convincing evidence of metastatic disease Dictated by: Pramod Camilo MD 07/18/2020 11:59 Pramod Camilo MD in [place] 07/18/2020 11:59
--- NOTE | 2020-07-17 09:24 | CT_ITS ---
PROCEDURE: CT ABDOMEN PELVIS WO/W CON CLINICAL INDICATION: PANCREATIC CA follow up, pancreatic cancer s/p whipple surgery february 2020 COMPARISON: CT CT ABDOMEN PELVIS W CON from 04/16/2020 TECHNIQUE: IV Contrast: 75ML Isovue 370 Oral Contrast None Axial images obtained with sagittal and coronal reformats. All CT scans at the facility use one or more dose reduction, viz: automated exposure control, ma/kV adjustment per patient size (including targeted exams where dose is matched to indication, i.e. head), or iterative reconstruction technique. FINDINGS: There are several hypodensities of the liver once again noted consistent with hepatic cysts. There is pneumobilia once again noted. Evaluation of the abdomen is limited without oral contrast specially in this patient that has had extensive abdominal surgery. There has been a prior Whipple procedure. A stent is present within the pancreatic duct.. There is mild stranding of the fat in the upper abdomen and peripancreatic region as before. Small fluid collection is present just lateral to the superior mesenteric vein with an air-fluid level similar to the previous exam possibly due to small diverticulum. There are few small lymph nodes in the periaortic region. The kidneys and adrenal glands and spleen have an unremarkable appearance. No intestinal obstruction or free air. Colonic diverticulosis is noted without diverticulitis. No pelvic mass or abnormal fluid collection. Small sclerotic focus involves the right ilium laterally not significantly changed. Additional small sclerotic focus involves the left superior pubic ramus medially unchanged. IMPRESSION: Overall stable CT appearance of the abdomen and pelvis. Status post Whipple procedure with postsurgical changes. No definite evidence of tumor recurrence. Small periaortic lymph nodes are unchanged Dictated by: Pramod Camilo MD 07/19/2020 10:56 Pramod Camilo MD in [place] 07/19/2020 10:56
== END ==
PROVIDERS: PCP Internal Medicine Adolescent Medicine; Visit Provider Internal Medicine Medical Oncology
DX: C25.9 Malignant neoplasm of pancreas, unspecified (principal)
CPT/HCPCS: 71270; 74178; J1642; Q9967

== ENCOUNTER 2020-07-23 08:19 | Outpatient (CLI) | payer BC, SELFPAY ==
[2020-07-23] VITALS (27 sets, daily range): BP systolic 134–166; BP diastolic 67–99; PULSE 73–112; RESP 18; TEMP 36.6; O2SAT 99; BMI 25.3
[2020-07-23 08:38] LABS: Chloride 106 mmol/L (98-107); Sodium 139 mmol/L (136-145)
[2020-07-23 08:41] LABS: Alanine Aminotransferase 55 U/L (12-78); Albumin Level 4.1 g/dl (3.5-5.0); Albumin/Globulin Ratio 1.4 (1.1-1.8); Alkaline Phosphatase 185 U/L (38-126); Aspartate Amino Transferase 54 U/L (14-36); Bilirubin,Total 0.3 mg/dl (0.2-1.3); Blood Urea Nitrogen 7 mg/dl (7-17); Calcium 9.6 mg/dl (8.4-10.2); Carbon Dioxide 27 mmol/L (22.0-30.0); Creatinine Clearance Estimated 61 mL/min (50-200); Estimated Glomerular Filt Rate 123 ml/min (>60); GFR (African American) 148 ML/MIN (>60); Globulin 2.9 g/dL (1.3-3.2); Glucose 132 mg/dl (74-100)
[2020-07-23 08:43] LABS: Basophils % 0.3 % (0.1-2.0); Eosinophils # 0.1 K/mm3 (0.0-0.4); Eosinophils % 1.7 % (0.1-12.0); Hematocrit 39.6 % (37.0-47.0); Lymphocytes # 1.8 K/mm3 (0.7-4.5); Lymphocytes % 26.9 % (10-50); Mean Corpuscular Hemoglobin 29.9 pg (27.0-31.2); Mean Corpuscular Volume 90.8 fl (81-99); Mean Platelet Volume 7.7 fl (7.4-10.4); Monocytes # 0.6 K/mm3 (0.1-1.0); Monocytes % 8.8 % (1.7-9.3); Neutrophils # 4.1 K/mm3 (1.8-7.8); Neutrophils % 62.4 % (37.0-80.0); Platelet Count 220 K/mm3 (142-424); Red Blood Count 4.36 M/mm3 (4.20-5.40); Red Cell Distribution Width 16.1 % (11.5-17.5); White Blood Count 6.5 K/mm3 (4.8-10.8)
== END 2020-07-23 17:18 | disposition home or self-care (01) ==
LOC: INF 08:20
PROVIDERS: Visit Provider Internal Medicine Medical Oncology
DX: Z51.11 Encounter for antineoplastic chemotherapy (principal); C25.9 Malignant neoplasm of pancreas, unspecified
CPT/HCPCS: 80053; 85025; 96413; 96415; 96417; J0640; J9206; J9263; Q0166

== ENCOUNTER 2020-08-02 14:14 | Outpatient (CLI) | payer BC, SELFPAY ==
[2020-08-02 14:15] VITALS: BMI 25.1
[2020-08-02 14:30] LABS: Basophils % 0.4 % (0.1-2.0); Eosinophils # 0.1 K/mm3 (0.0-0.4); Eosinophils % 0.8 % (0.1-12.0); Hematocrit 38.8 % (37.0-47.0); Hemoglobin 13.1 g/dL (12.2-16.2); Lymphocytes # 1.5 K/mm3 (0.7-4.5); Lymphocytes % 22.5 % (10-50); Mean Corpuscular HGB Conc 33.8 g/dL (31.8-35.4); Mean Corpuscular Hemoglobin 30.4 pg (27.0-31.2); Mean Corpuscular Volume 89.8 fl (81-99); Mean Platelet Volume 7.3 fl (7.4-10.4); Monocytes # 0.6 K/mm3 (0.1-1.0); Monocytes % 8.9 % (1.7-9.3); Neutrophils # 4.5 K/mm3 (1.8-7.8); Neutrophils % 67.4 % (37.0-80.0); Platelet Count 222 K/mm3 (142-424); Red Blood Count 4.32 M/mm3 (4.20-5.40); Red Cell Distribution Width 16.4 % (11.5-17.5); White Blood Count 6.7 K/mm3 (4.8-10.8)
[2020-08-02 14:34] LABS: Chloride 105 mmol/L (98-107); Potassium 3.7 mmoL/L (3.5-5.1); Sodium 138 mmol/L (136-145)
[2020-08-02 14:37] LABS: Alanine Aminotransferase 50 U/L (12-78); Albumin Level 4.3 g/dl (3.5-5.0); Albumin/Globulin Ratio 1.4 (1.1-1.8); Alkaline Phosphatase 195 U/L (38-126); Anion Gap 12.7 mEq/L (5-15); Aspartate Amino Transferase 50 U/L (14-36); Bilirubin,Total 0.5 mg/dl (0.2-1.3); Blood Urea Nitrogen 8 mg/dl (7-17); Calcium 9.7 mg/dl (8.4-10.2); Carbon Dioxide 24 mmol/L (22.0-30.0); Creatinine Clearance Estimated 58 mL/min (50-200); Estimated Glomerular Filt Rate 123 ml/min (>60); GFR (African American) 148 ML/MIN (>60); Glucose 121 mg/dl (74-100); Total Protein,Serum 7.3 g/dl (6.3-8.2)
== END 2020-08-02 14:24 | disposition home or self-care (01) ==
LOC: INF 14:14
PROVIDERS: Visit Provider Internal Medicine Medical Oncology
DX: C18.9 Malignant neoplasm of colon, unspecified (principal); Z45.2 Encounter for adjustment and management of vascular access device
CPT/HCPCS: 80053; 85025; J1642

== ENCOUNTER 2020-08-06 08:25 | Outpatient (CLI) | payer BC, SELFPAY ==
[2020-08-06] VITALS (29 sets, daily range): BP systolic 131–170; BP diastolic 53–95; PULSE 73–116; RESP 18
== END 2020-08-06 16:50 | disposition home or self-care (01) ==
LOC: INF 08:30
PROVIDERS: Visit Provider Internal Medicine Medical Oncology
DX: Z51.11 Encounter for antineoplastic chemotherapy (principal); C25.9 Malignant neoplasm of pancreas, unspecified
CPT/HCPCS: 96413; 96415; 96417; J0640; J9206; J9263; Q0166

== ENCOUNTER 2020-08-16 14:12 | Outpatient (CLI) | payer BC, SELFPAY ==
[2020-08-16 14:14] VITALS: BMI 25.0
[2020-08-16 14:31] LABS: Basophils % 0.6 % (0.1-2.0); Eosinophils % 0.8 % (0.1-12.0); Hematocrit 39.7 % (37.0-47.0); Hemoglobin 13.1 g/dL (12.2-16.2); Lymphocytes # 1.4 K/mm3 (0.7-4.5); Lymphocytes % 26.3 % (10-50); Mean Corpuscular HGB Conc 33.1 g/dL (31.8-35.4); Mean Corpuscular Hemoglobin 30.3 pg (27.0-31.2); Mean Corpuscular Volume 91.7 fl (81-99); Mean Platelet Volume 8.1 fl (7.4-10.4); Monocytes # 0.4 K/mm3 (0.1-1.0); Monocytes % 8.2 % (1.7-9.3); Neutrophils # 3.5 K/mm3 (1.8-7.8); Platelet Count 200 K/mm3 (142-424); Red Blood Count 4.33 M/mm3 (4.20-5.40); Red Cell Distribution Width 15.1 % (11.5-17.5); White Blood Count 5.4 K/mm3 (4.8-10.8)
[2020-08-16 14:33] LABS: Chloride 103 mmol/L (98-107); Potassium 3.7 mmoL/L (3.5-5.1); Sodium 138 mmol/L (136-145)
[2020-08-16 14:36] LABS: Alanine Aminotransferase 64 U/L (12-78); Albumin Level 4.3 g/dl (3.5-5.0); Albumin/Globulin Ratio 1.5 (1.1-1.8); Alkaline Phosphatase 226 U/L (38-126); Anion Gap 11.7 mEq/L (5-15); Aspartate Amino Transferase 62 U/L (14-36); Bilirubin,Total 0.5 mg/dl (0.2-1.3); Blood Urea Nitrogen 5 mg/dl (7-17); Calcium 9.8 mg/dl (8.4-10.2); Carbon Dioxide 27 mmol/L (22.0-30.0); Creatinine Clearance Estimated 57 mL/min (50-200); Estimated Glomerular Filt Rate 122 ml/min (>60); GFR (African American) 148 ML/MIN (>60); Globulin 2.8 g/dL (1.3-3.2); Glucose 130 mg/dl (74-100); Total Protein,Serum 7.1 g/dl (6.3-8.2)
== END 2020-08-16 14:25 | disposition home or self-care (01) ==
LOC: INF 14:12
PROVIDERS: Visit Provider Internal Medicine Medical Oncology
DX: Z45.2 Encounter for adjustment and management of vascular access device (principal)
CPT/HCPCS: 80053; 85025; J1642

== ENCOUNTER 2020-08-20 08:25 | Outpatient (CLI) | payer BC, SELFPAY ==
[2020-08-20] VITALS (14 sets, daily range): BP systolic 126–164; BP diastolic 71–98; PULSE 71–99; RESP 18–20; TEMP 36.6; O2SAT 96–98
== END 2020-08-20 16:14 | disposition home or self-care (01) ==
LOC: INF 08:25
PROVIDERS: Visit Provider Internal Medicine Medical Oncology
DX: Z51.11 Encounter for antineoplastic chemotherapy (principal); C25.9 Malignant neoplasm of pancreas, unspecified
CPT/HCPCS: 96413; 96415; 96417; J0640; J9206; J9263; Q0166

== ENCOUNTER 2020-08-30 13:48 | Outpatient (CLI) | payer BC, SELFPAY ==
[2020-08-30 14:02] VITALS: BMI 25.4
[2020-08-30 14:11] LABS: Basophils % 0.3 % (0.1-2.0); Eosinophils # 0.1 K/mm3 (0.0-0.4); Eosinophils % 0.7 % (0.1-12.0); Hematocrit 39.4 % (37.0-47.0); Hemoglobin 13.4 g/dL (12.2-16.2); Lymphocytes # 1.7 K/mm3 (0.7-4.5); Lymphocytes % 24.3 % (10-50); Mean Corpuscular HGB Conc 33.9 g/dL (31.8-35.4); Mean Corpuscular Hemoglobin 31.5 pg (27.0-31.2); Mean Corpuscular Volume 92.7 fl (81-99); Mean Platelet Volume 7.2 fl (7.4-10.4); Monocytes # 0.6 K/mm3 (0.1-1.0); Monocytes % 8.8 % (1.7-9.3); Neutrophils # 4.5 K/mm3 (1.8-7.8); Neutrophils % 65.9 % (37.0-80.0); Platelet Count 193 K/mm3 (142-424); Red Blood Count 4.25 M/mm3 (4.20-5.40); Red Cell Distribution Width 15.1 % (11.5-17.5); White Blood Count 6.8 K/mm3 (4.8-10.8)
[2020-08-30 14:14] LABS: Alanine Aminotransferase 52 U/L (12-78); Albumin Level 4.2 g/dl (3.5-5.0); Albumin/Globulin Ratio 1.4 (1.1-1.8); Alkaline Phosphatase 198 U/L (38-126); Anion Gap 10.3 mEq/L (5-15); Aspartate Amino Transferase 52 U/L (14-36); Bilirubin,Total 0.6 mg/dl (0.2-1.3); Blood Urea Nitrogen 5 mg/dl (7-17); Calcium 9.8 mg/dl (8.4-10.2); Carbon Dioxide 24 mmol/L (22.0-30.0); Chloride 105 mmol/L (98-107); Creatinine Clearance Estimated 58 mL/min (50-200); Estimated Glomerular Filt Rate 99 ml/min (>60); GFR (African American) 120 ML/MIN (>60); Glucose 188 mg/dl (74-100); Potassium 3.3 mmoL/L (3.5-5.1); Sodium 136 mmol/L (136-145); Total Protein,Serum 7.2 g/dl (6.3-8.2)
== END 2020-08-30 14:00 | disposition home or self-care (01) ==
LOC: INF 13:48
PROVIDERS: Visit Provider Internal Medicine Medical Oncology
DX: Z45.2 Encounter for adjustment and management of vascular access device (principal)
CPT/HCPCS: 80053; 85025; J1642

== ENCOUNTER 2020-09-03 08:34 | Outpatient (CLI) | payer BC, SELFPAY ==
[2020-09-03] VITALS (27 sets, daily range): BP systolic 123–174; BP diastolic 67–91; PULSE 74–104; RESP 18; TEMP 36.5; O2SAT 99
== END 2020-09-03 14:20 | disposition home or self-care (01) ==
LOC: INF 08:34
PROVIDERS: Visit Provider Internal Medicine Medical Oncology
DX: Z51.11 Encounter for antineoplastic chemotherapy (principal); C25.9 Malignant neoplasm of pancreas, unspecified
CPT/HCPCS: 96413; 96415; 96417; J0640; J9206; J9263; Q0166

== ENCOUNTER 2020-09-11 12:21 | Outpatient (CLI) | payer BC, SELFPAY ==
[2020-09-11 12:23] VITALS: BMI 25.2
[2020-09-11 12:36] LABS: Basophils % 0.4 % (0.1-2.0); Eosinophils # 0.1 K/mm3 (0.0-0.4); Hematocrit 38.1 % (37.0-47.0); Hemoglobin 12.5 g/dL (12.2-16.2); Lymphocytes # 1.6 K/mm3 (0.7-4.5); Mean Corpuscular HGB Conc 32.9 g/dL (31.8-35.4); Mean Corpuscular Hemoglobin 30.1 pg (27.0-31.2); Mean Corpuscular Volume 91.4 fl (81-99); Mean Platelet Volume 7.9 fl (7.4-10.4); Monocytes # 0.4 K/mm3 (0.1-1.0); Monocytes % 6.9 % (1.7-9.3); Neutrophils # 3.5 K/mm3 (1.8-7.8); Neutrophils % 62.7 % (37.0-80.0); Platelet Count 172 K/mm3 (142-424); Red Blood Count 4.17 M/mm3 (4.20-5.40); Red Cell Distribution Width 14.5 % (11.5-17.5); White Blood Count 5.6 K/mm3 (4.8-10.8)
[2020-09-11 12:40] LABS: Chloride 105 mmol/L (98-107); Sodium 137 mmol/L (136-145)
[2020-09-11 12:41] LABS: Potassium 3.3 mmoL/L (3.5-5.1)
[2020-09-11 12:43] LABS: Alanine Aminotransferase 46 U/L (12-78); Alkaline Phosphatase 208 U/L (38-126); Aspartate Amino Transferase 48 U/L (14-36); Bilirubin,Total 0.4 mg/dl (0.2-1.3); Blood Urea Nitrogen 7 mg/dl (7-17); Creatinine Clearance Estimated 58 mL/min (50-200); Estimated Glomerular Filt Rate 83 ml/min (>60); GFR (African American) 100 ML/MIN (>60)
[2020-09-11 12:44] LABS: Albumin Level 4.2 g/dl (3.5-5.0); Albumin/Globulin Ratio 1.4 (1.1-1.8); Anion Gap 12.3 mEq/L (5-15); Calcium 9.5 mg/dl (8.4-10.2); Carbon Dioxide 23 mmol/L (22.0-30.0); Globulin 3.1 g/dL (1.3-3.2); Glucose 137 mg/dl (74-100); Total Protein,Serum 7.3 g/dl (6.3-8.2)
== END 2020-09-11 12:31 | disposition home or self-care (01) ==
LOC: INF 12:21
PROVIDERS: Visit Provider Internal Medicine Medical Oncology
DX: Z45.2 Encounter for adjustment and management of vascular access device (principal)
CPT/HCPCS: 80053; 85025; J1642

== ENCOUNTER 2020-09-17 08:20 | Outpatient (CLI) | payer BC, SELFPAY ==
[2020-09-17] VITALS (25 sets, daily range): BP systolic 131–177; BP diastolic 51–97; PULSE 72–103; RESP 18; O2SAT 97
== END 2020-09-17 16:15 | disposition home or self-care (01) ==
LOC: INF 08:27
PROVIDERS: Visit Provider Internal Medicine Medical Oncology
DX: Z51.11 Encounter for antineoplastic chemotherapy (principal); C25.1 Malignant neoplasm of body of pancreas
CPT/HCPCS: 96413; 96415; 96417; J0640; J9206; J9263; Q0166

== ENCOUNTER 2020-09-27 12:12 | Outpatient (CLI) | payer BC, SELFPAY ==
[2020-09-27 12:14] VITALS: BMI 25.4
[2020-09-27 12:39] LABS: Basophils % 0.6 % (0.1-2.0); Eosinophils # 0.1 K/mm3 (0.0-0.4); Eosinophils % 0.8 % (0.1-12.0); Hemoglobin 12.9 g/dL (12.2-16.2); Lymphocytes # 1.8 K/mm3 (0.7-4.5); Lymphocytes % 27.2 % (10-50); Mean Corpuscular HGB Conc 33.9 g/dL (31.8-35.4); Mean Corpuscular Hemoglobin 30.5 pg (27.0-31.2); Mean Corpuscular Volume 89.8 fl (81-99); Mean Platelet Volume 7.3 fl (7.4-10.4); Monocytes # 0.6 K/mm3 (0.1-1.0); Monocytes % 9.2 % (1.7-9.3); Neutrophils % 62.1 % (37.0-80.0); Platelet Count 177 K/mm3 (142-424); Red Blood Count 4.23 M/mm3 (4.20-5.40); Red Cell Distribution Width 14.6 % (11.5-17.5); White Blood Count 6.5 K/mm3 (4.8-10.8)
[2020-09-27 12:47] LABS: Chloride 106 mmol/L (98-107); Sodium 139 mmol/L (136-145)
[2020-09-27 12:48] LABS: Potassium 2.9 mmoL/L (3.5-5.1)
[2020-09-27 12:49] LABS: Alanine Aminotransferase 48 U/L (12-78); Aspartate Amino Transferase 52 U/L (14-36); Blood Urea Nitrogen 6 mg/dl (7-17); Creatinine Clearance Estimated 58 mL/min (50-200); Estimated Glomerular Filt Rate 99 ml/min (>60); GFR (African American) 120 ML/MIN (>60)
[2020-09-27 12:50] LABS: Albumin Level 4.1 g/dl (3.5-5.0); Albumin/Globulin Ratio 1.3 (1.1-1.8); Alkaline Phosphatase 197 U/L (38-126); Anion Gap 12.9 mEq/L (5-15); Bilirubin,Total 0.6 mg/dl (0.2-1.3); Calcium 9.5 mg/dl (8.4-10.2); Carbon Dioxide 23 mmol/L (22.0-30.0); Globulin 3.1 g/dL (1.3-3.2); Glucose 173 mg/dl (74-100); Total Protein,Serum 7.2 g/dl (6.3-8.2)
== END 2020-09-27 12:24 | disposition home or self-care (01) ==
LOC: INF 12:12
PROVIDERS: Visit Provider Internal Medicine Medical Oncology
DX: C25.9 Malignant neoplasm of pancreas, unspecified (principal); Z45.2 Encounter for adjustment and management of vascular access device
CPT/HCPCS: 80053; 85025; J1642

== ENCOUNTER 2020-10-01 08:19 | Outpatient (CLI) | payer BC, SELFPAY ==
[2020-10-01] VITALS (15 sets, daily range): BP systolic 132–162; BP diastolic 72–90; PULSE 78–93; RESP 18; TEMP 36.4; O2SAT 98–99; BMI 25.6
[2020-10-01 09:01] LABS: Anion Gap 11.7 mEq/L (5-15); Blood Urea Nitrogen 7 mg/dl (7-17); Calcium 9.3 mg/dl (8.4-10.2); Carbon Dioxide 24 mmol/L (22.0-30.0); Chloride 106 mmol/L (98-107); Creatinine Clearance Estimated 59 mL/min (50-200); Estimated Glomerular Filt Rate 122 ml/min (>60); GFR (African American) 148 ML/MIN (>60); Glucose 156 mg/dl (74-100); Potassium 3.7 mmoL/L (3.5-5.1); Sodium 138 mmol/L (136-145)
== END 2020-10-01 16:11 | disposition home or self-care (01) ==
LOC: INF 08:20
PROVIDERS: Visit Provider Internal Medicine Medical Oncology
DX: Z51.11 Encounter for antineoplastic chemotherapy (principal); C25.1 Malignant neoplasm of body of pancreas
CPT/HCPCS: 80048; 96413; 96415; 96417; J0640; J9206; J9263; Q0166

== ENCOUNTER 2020-10-23 09:39 | Outpatient (CLI) | payer BC, SELFPAY ==
[2020-10-23 09:30] VITALS: BMI 25.6
--- NOTE | 2020-10-23 09:42 | CT_ITS ---
PROCEDURE: CT CHEST W CON CLINCAL INDICATION: PANCREAS CANCER Follow up pancreatic cancer COMPARISON: CT CT CHEST WO/W CON from 07/17/2020 TECHNIQUE: IV Contrast: 75ml Isovue 370 Axial images obtained with sagittal and coronal reformats. All CT scans at the facility use one or more dose reduction, viz: automated exposure control, ma/kV adjustment per patient size (including targeted exams where dose is matched to indication, i.e. head), or iterative reconstruction technique. FINDINGS: HEART AND MEDIASTINAL STRUCTURES: No mediastinal or hilar mass or adenopathy. There are few small mediastinal lymph nodes which are unchanged LUNGS AND PLEURAL SPACES: Mild scarring in the left lung base. No suspicious pulmonary nodules. No infiltrates or effusions. BONY STRUCTURES: No acute bony abnormalities apparent. UPPER ABDOMEN: Unremarkable. ADDITIONAL FINDINGS: MediPort catheter is present the right subclavian approach with the tip in the region the SVC IMPRESSION: Stable CT appearance of the chest with no convincing evidence of metastatic disease. Dictated by: Pramod Camilo MD 10/25/2020 07:59 Pramod Camilo MD in [place] 10/25/2020 07:59
--- NOTE | 2020-10-23 09:43 | CT_ITS ---
PROCEDURE: CT ABDOMEN PELVIS W CON CLINICAL INDICATION: PANCREAS CANCER Follow up Whipple surgery 02/2020 COMPARISON: CT CT ABDOMEN PELVIS WO/W CON from 07/17/2020 TECHNIQUE: IV Contrast: 75ML Isovue 370 Oral Contrast None Axial images obtained with sagittal and coronal reformats. All CT scans at the facility use one or more dose reduction, viz: automated exposure control, ma/kV adjustment per patient size (including targeted exams where dose is matched to indication, i.e. head), or iterative reconstruction technique. FINDINGS: Pneumobilia. Multiple hepatic hypodensities are once again noted consistent with hepatic cysts as noted on previous exams. There is mild splenomegaly at 14 cm. Evaluation is limited without oral contrast specially in this patient with extensive abdominal surgery. Multiple unopacified bowel loops in the abdomen or pelvis which could obscure or mimic pathology.. A pancreatic stent is in place. There has been a prior Whipple procedure. There remains stranding of the peritoneal fat. Prior partial pancreatectomy of the pancreatic head noted. There remains a small air-fluid level to the right of the superior mesenteric vein and may be due to a duodenal diverticulum. Soft tissue density noted just to the right of the pancreatectomy site and may be related to unopacified bowel. Continued monitoring suggested with both IV and oral contrast. On the no obvious recurrence mass or adenopathy. There are small retroperitoneal lymph nodes which are nonspecific. No intestinal obstruction or free air. There is colonic diverticulosis without diverticulitis. There is a small amount fluid in the pelvis. There is prominent hypodensity of the endometrium. Suggest pelvic ultrasound in this postmenopausal patient for further evaluation. The kidneys and adrenal glands have an unremarkable appearance. IMPRESSION: 1. Postsurgical changes from prior Whipple procedure with some persistent stranding of the peritoneal fat not significantly changed. No definite evidence of tumor recurrence. Limited evaluation without oral contrast. 2. Pneumobilia. Mild splenomegaly. 3. Prominent hypodensity within the endometrial cavity. Suggest ultrasound for further evaluation in this postmenopausal patient. Dictated by: Pramod Camilo MD 10/25/2020 08:11 Pramod Camilo MD in [place] 10/25/2020 08:11
[2020-10-23 09:52] LABS: Basophils % 0.4 % (0.1-2.0); Eosinophils # 0.1 K/mm3 (0.0-0.4); Eosinophils % 1.2 % (0.1-12.0); Hematocrit 39.9 % (37.0-47.0); Hemoglobin 12.9 g/dL (12.2-16.2); Lymphocytes # 1.7 K/mm3 (0.7-4.5); Lymphocytes % 27.3 % (10-50); Mean Corpuscular HGB Conc 32.3 g/dL (31.8-35.4); Mean Corpuscular Hemoglobin 29.9 pg (27.0-31.2); Mean Corpuscular Volume 92.6 fl (81-99); Mean Platelet Volume 7.4 fl (7.4-10.4); Monocytes # 0.6 K/mm3 (0.1-1.0); Monocytes % 9.1 % (1.7-9.3); Neutrophils # 3.8 K/mm3 (1.8-7.8); Platelet Count 180 K/mm3 (142-424); Red Blood Count 4.31 M/mm3 (4.20-5.40); Red Cell Distribution Width 14.4 % (11.5-17.5); White Blood Count 6.1 K/mm3 (4.8-10.8)
[2020-10-23 09:59] LABS: Chloride 105 mmol/L (98-107); Potassium 3.8 mmoL/L (3.5-5.1); Sodium 138 mmol/L (136-145)
[2020-10-23 10:01] LABS: Alanine Aminotransferase 62 U/L (12-78); Alkaline Phosphatase 202 U/L (38-126); Aspartate Amino Transferase 68 U/L (14-36); Bilirubin,Total 0.9 mg/dl (0.2-1.3); Blood Urea Nitrogen 5 mg/dl (7-17); Creatinine Clearance Estimated 59 mL/min (50-200); Estimated Glomerular Filt Rate 122 ml/min (>60); GFR (African American) 148 ML/MIN (>60)
[2020-10-23 10:02] LABS: Albumin Level 4.3 g/dl (3.5-5.0); Albumin/Globulin Ratio 1.4 (1.1-1.8); Anion Gap 11.8 mEq/L (5-15); Calcium 9.9 mg/dl (8.4-10.2); Carbon Dioxide 25 mmol/L (22.0-30.0); Glucose 147 mg/dl (74-100); Total Protein,Serum 7.3 g/dl (6.3-8.2)
== END 2020-10-23 10:35 | disposition home or self-care (01) ==
LOC: INF 09:39
PROVIDERS: PCP Internal Medicine Adolescent Medicine; Visit Provider Internal Medicine Medical Oncology
DX: C25.9 Malignant neoplasm of pancreas, unspecified (principal)
CPT/HCPCS: 71260; 74177; 80053; 85025; J1642; Q9967

== ENCOUNTER 2020-11-07 13:36 | Outpatient (CLI) | payer BC, SELFPAY ==
--- NOTE | 2020-11-07 13:40 | US_ITS ---
PROCEDURE: US PELVIC CLINICAL INDICATION: ABN CT ABD Thickened endometrium on recent CT scan COMPARISON: CT CT ABDOMEN PELVIS W CON from 10/23/[address] CHEST W CON from 10/23/2020 FINDINGS: The uterus is 8 4 x 5 cm. Endometrium is thickened at 15 mm. Endometrium has homogeneous echogenicity. On review the previous CT scan there is also suggestion of some nodularity along the posterior aspect of the uterine fundus. This is not well demonstrated by ultrasound however, ultrasound was not performed by endovaginal approach but only transabdominal. There is some questionable nodularity along the posterior aspect of the uterus on the axial ultrasound images. The left ovary is 2 x 2 cm. The right ovary was not visualized. No cul-de-sac fluid is evident. IMPRESSION: 1. Thickened endometrium and a patient. Differential diagnosis includes endometrial carcinoma, endometrial hyperplasia, endometrial polyp or hormonal replacement therapy. 2. Possible fibroid along the posterior aspect of the fundus of the uterus Dictated by: Pramod Camilo MD 11/07/2020 19:04 Pramod Camilo MD in [place] 11/07/2020 19:04
[2020-11-07 14:32] VITALS: BMI 24.8
[2020-11-07 14:57] LABS: Basophils % 0.2 % (0.1-2.0); Eosinophils # 0.1 K/mm3 (0.0-0.4); Eosinophils % 1.1 % (0.1-12.0); Hematocrit 40.5 % (37.0-47.0); Hemoglobin 13.2 g/dL (12.2-16.2); Lymphocytes # 1.3 K/mm3 (0.7-4.5); Lymphocytes % 18.8 % (10-50); Mean Corpuscular HGB Conc 32.5 g/dL (31.8-35.4); Mean Corpuscular Hemoglobin 29.9 pg (27.0-31.2); Mean Corpuscular Volume 92.1 fl (81-99); Mean Platelet Volume 7.4 fl (7.4-10.4); Monocytes # 0.5 K/mm3 (0.1-1.0); Monocytes % 6.5 % (1.7-9.3); Neutrophils # 5.1 K/mm3 (1.8-7.8); Neutrophils % 73.3 % (37.0-80.0); Platelet Count 145 K/mm3 (142-424); Red Cell Distribution Width 14.3 % (11.5-17.5)
[2020-11-07 15:31] LABS: Chloride 106 mmol/L (98-107); Sodium 139 mmol/L (136-145)
[2020-11-07 15:32] LABS: Potassium 3.8 mmoL/L (3.5-5.1)
[2020-11-07 15:34] LABS: Alanine Aminotransferase 50 U/L (12-78); Albumin Level 4.3 g/dl (3.5-5.0); Albumin/Globulin Ratio 1.3 (1.1-1.8); Alkaline Phosphatase 175 U/L (38-126); Anion Gap 11.8 mEq/L (5-15); Aspartate Amino Transferase 60 U/L (14-36); Bilirubin,Total 1.1 mg/dl (0.2-1.3); Blood Urea Nitrogen 7 mg/dl (7-17); Calcium 9.5 mg/dl (8.4-10.2); Carbon Dioxide 25 mmol/L (22.0-30.0); Creatinine Clearance Estimated 59 mL/min (50-200); Estimated Glomerular Filt Rate 122 ml/min (>60); GFR (African American) 148 ML/MIN (>60); Globulin 3.2 g/dL (1.3-3.2); Glucose 121 mg/dl (74-100); Total Protein,Serum 7.5 g/dl (6.3-8.2)
== END 2020-11-07 14:42 | disposition home or self-care (01) ==
PROVIDERS: PCP Internal Medicine Adolescent Medicine; Visit Provider Internal Medicine Medical Oncology
DX: C25.1 Malignant neoplasm of body of pancreas (principal); Z03.89 Encounter for observation for other suspected diseases and conditions ruled out
CPT/HCPCS: 76856; 80053; 85025; J1642

== ENCOUNTER → 2020-12-07 09:47 | Outpatient (CLI) | payer MEDICARE, OTHER, SELFPAY ==
[2020-12-07 09:52] VITALS: BMI 25.0
[2020-12-07 10:12] LABS: Basophils # 0.1 K/mm3 (0-0.2); Basophils % 0.6 % (0.1-2.0); Eosinophils # 0.2 K/mm3 (0.0-0.4); Hematocrit 40.6 % (37.0-47.0); Hemoglobin 13.5 g/dL (12.2-16.2); Lymphocytes # 1.6 K/mm3 (0.7-4.5); Lymphocytes % 21.1 % (10-50); Mean Corpuscular HGB Conc 33.3 g/dL (31.8-35.4); Mean Corpuscular Hemoglobin 29.8 pg (27.0-31.2); Mean Corpuscular Volume 89.5 fl (81-99); Mean Platelet Volume 7.7 fl (7.4-10.4); Monocytes # 0.5 K/mm3 (0.1-1.0); Monocytes % 6.2 % (1.7-9.3); Neutrophils # 5.1 K/mm3 (1.8-7.8); Platelet Count 145 K/mm3 (142-424); Red Blood Count 4.53 M/mm3 (4.20-5.40); Red Cell Distribution Width 13.2 % (11.5-17.5); White Blood Count 7.3 K/mm3 (4.8-10.8)
[2020-12-07 10:22] LABS: Alanine Aminotransferase 54 U/L (12-78); Albumin Level 4.4 g/dl (3.5-5.0); Albumin/Globulin Ratio 1.6 (1.1-1.8); Alkaline Phosphatase 209 U/L (38-126); Aspartate Amino Transferase 56 U/L (14-36); Blood Urea Nitrogen 8 mg/dl (7-17); Calcium 9.7 mg/dl (8.4-10.2); Carbon Dioxide 22 mmol/L (22.0-30.0); Chloride 106 mmol/L (98-107); Creatinine Clearance Estimated 59 mL/min (50-200); Estimated Glomerular Filt Rate 122 ml/min (>60); GFR (African American) 148 ML/MIN (>60); Globulin 2.8 g/dL (1.3-3.2); Glucose 119 mg/dl (74-100); Sodium 137 mmol/L (136-145); Total Protein,Serum 7.2 g/dl (6.3-8.2)
== END ==
PROVIDERS: Visit Provider Internal Medicine Medical Oncology
DX: C25.9 Malignant neoplasm of pancreas, unspecified (principal); Z45.2 Encounter for adjustment and management of vascular access device
CPT/HCPCS: 80053; 85025; J1642

== ENCOUNTER 2020-12-10 08:53 | Outpatient (CLI) | payer MEDICARE, SELFPAY ==
[2020-12-10 09:05] VITALS: BMI 25.8
[2020-12-10 10:22] LABS: Coronavirus 19 IgG Antibody Negative (Negative); Coronavirus 19 IgM Antibody Negative (Negative)
[2020-12-10 10:44] LABS: HCG Qualitative, Serum Negative (Negative)
== END 2020-12-10 09:20 | disposition home or self-care (01) ==
LOC: INF 08:53
PROVIDERS: PCP Internal Medicine Adolescent Medicine; Visit Provider Obstetrics & Gynecology
DX: Z01.818 Encounter for other preprocedural examination (principal); Z20.822 Contact with and (suspected) exposure to COVID-19; Z45.2 Encounter for adjustment and management of vascular access device; R10.2 Pelvic and perineal pain
CPT/HCPCS: 84703; 86328; J1642

== ENCOUNTER 2020-12-11 07:27 | Day surgery (SDC) | payer MEDICARE, BC, SELFPAY ==
[2020-12-07 14:13] VITALS: BMI 25.7
[2020-12-11] VITALS (11 sets, daily range): BP systolic 129–187; BP diastolic 64–115; PULSE 80–144; RESP 18–24; TEMP 36–42.7; O2SAT 95–99
--- NOTE | 2020-12-11 08:11 | P.PN_ITS ---
[facility] [place] Anesthesia Checklist - Patient Identification Patient Identification: Arm Band - Structural Data Admitted From: Home Planned Operative Procedure/s: D & C Consent for Planned Operative Procedure(s) Verified: Yes - NPO Status Verified Time NPO: 00:00 - Additional verifications Anesthesia Reactions: No Hx Blood Transfusions: No Blood Transfusion Reaction: No - Airway Assessment C-Spine Mobility Assessed: Yes TMJ Mobility Assessed: Yes Dentition: Poor Dentition (Missing, Broken) - Neurological Assessment Level of Consciousness: Awake, Alert Hx Seizures: No Numbness or tingling in extremities: No - Anesthesia Plan Anesthesia Risk discussed: Yes Anesthesia Plan: Verified ASA Class: II Anesthesia Type: General [facility] [place] History I have reviewed the patient's past medical history: Yes Medical History: Reports:: Anxiety, Cancer, MRSA Denies:: Diabetes Mellitus Type 1, Diabetes Mellitus Type 2, Internal Pacemaker, Seizures *Have you ever received a pneumonia vaccine?: No *Have you received a flu vaccine this season?: No Other Medical History: Reports: Chemotherapy. Denies: Blood Transfusion Reaction Anesthesia experience/problems:: None Other Surgeries: Yes: Cancer Surgery (pancreatic adenocarcinoma, s/p whipple), Other (s/p whipple). No: Pacemaker Amputation: No Fractures: Yes - *Social History Smoking Status: Never smoker Alcohol Intake: never Substance Use Type: other, denies use *Occupational Status:: retired Housing: house Household Members: none *Travel in the last 8 weeks: None - Psychiatric History Pschychiatric History:: Reports:: Anxiety Family Hx:: Unable to obtain
--- NOTE | 2020-12-11 11:00 | HMH.OPNOTE ---
Date of procedure: 12/11/20 Pre-op Diagnosis:: Thickened endometrium Post-op Diagnosis:: same Procedure performed:: Myosure D&C Hysteroscopy Surgeon:: Socorro Coley MD EDUCATION AND OUTREACH COORDINATOR:: Other Anesthesia: GETA Estimated blood loss (mL): 5 Operative findings:: thick mass anterior uterine wall Operative note:: The patient was taken to the OR and general anesthesia administered without difficulty. She was prepped/draped in lithotomy position. The cervix was dilated and hysteroscopic evaluation performed. A large, thick mass was visualized within the endometrial cavity on the anterior uterine wall. No other evidence of cavitary abnormalities were noted, with appropriately atrophied appearance of the remainder of the uterine cavity. The Myosure was used to excise this mass in entirety and to sample endometrial tissue throughout the cavity. The mass was composed of thick tissue, consistent with a submucosal fibroid. Once the procedure was completed, all instruments were removed from her uterus and vagina. She was taken out of lithotomy position, awakened from anesthesia and taken to the PACU in stable condition. All sponge, needle & instrument counts correct. EBL 5cc. Condition: stable Disposition: PACU Specimens:: endometrial curettings Complications:: none
--- NOTE | 2020-12-11 11:48 | PC.NURSE ---
1148-right chest pac with 20g 3/4 inch scott needle flushed with ns;obtained blood return;flushed with ns;capped with heparin 500 units; deaccessed pac; covered with 2x2 and bandaid.
--- NOTE | 2020-12-11 14:52 | P.PN_ITS ---
[facility] Anesthesia Checklist - Patient Identification Patient Identification: Arm Band - Structural Data Admitted From: Home Planned Operative Procedure/s: Hysterscopy D & C myosure Consent for Planned Operative Procedure(s) Verified: Yes Verified Documents: Surgical Consent, History and Physical - NPO Status Verified Time NPO: 00:00 - Additional verifications Anesthesia Reactions: No Hx Blood Transfusions: No Blood Transfusion Reaction: No - Airway Assessment C-Spine Mobility Assessed: Yes TMJ Mobility Assessed: Yes Dentition: Good Dentition - Neurological Assessment Level of Consciousness: Awake, Alert - Anesthesia Plan Anesthesia Risk discussed: Yes Anesthesia Plan: Verified ASA Class: III Anesthesia Type: General [facility] History Medical History: Reports:: Anxiety, Cancer, MRSA Denies:: Diabetes Mellitus Type 1, Diabetes Mellitus Type 2, Internal Pacemaker, Seizures *Have you ever received a pneumonia vaccine?: No *Have you received a flu vaccine this season?: No Other Medical History: Reports: Chemotherapy. Denies: Blood Transfusion Reaction Anesthesia experience/problems:: None Other Surgeries: Yes: Cancer Surgery (pancreatic adenocarcinoma, s/p whipple), Other (s/p whipple). No: Pacemaker Amputation: No Fractures: Yes - *Social History Smoking Status: Never smoker Alcohol Intake: never Substance Use Type: other, denies use *Occupational Status:: retired Housing: house Household Members: none *Travel in the last 8 weeks: None - Psychiatric History Pschychiatric History:: Reports:: Anxiety Family Hx:: Unable to obtain
--- NOTE | 2020-12-11 14:54 | P.PN_ITS ---
[facility] Anesthesia Record Part I Intake, IV Amount: 800 Estimated blood loss (mL): 5 Urine output (mL): 0 Blood Pressure: 141/88 SaO2: 96 Pulse Rate: 89 Respiratory Rate: 24 Temperature: 96.8 F Patient is:: Drowsy, Stable
--- NOTE | 2020-12-12 13:41 | P.PN_ITS ---
[facility] Anesthesia Record Part II Discharge Time: 11:23 Destination: [facility] PACU nurse assessment reviewed?: Yes Patient Condition:: Good Anesthesia Complications:: None Swallowing reflex intact?: Yes Cyanosis?: No Blood Pressure: 136/68 Pulse Rate: 83 Temperature: 97.6 F Mental Status: Alert & Oriented Pain level:: 0 Nausea and/or vomitting:: None Intake, IV Amount: 1,200
[2020-12-12 13:42] VITALS: BP 136/68; PULSE 83; TEMP 36.4
== END 2020-12-11 12:07 | disposition home or self-care (01) ==
LOC: OR 07:30
PROVIDERS: PCP Internal Medicine Adolescent Medicine; Visit Provider Obstetrics & Gynecology
PROC: (CPT 58563; principal; 2020-12-11 09:30)
DX: R93.89 Abnormal findings on diagnostic imaging of other specified body structures (principal); F41.9 Anxiety disorder, unspecified; Z85.07 Personal history of malignant neoplasm of pancreas; Z86.14 Personal history of Methicillin resistant Staphylococcus aureus infection; Z88.0 Allergy status to penicillin
CPT/HCPCS: 58563; 88305; 96374; J1642; J2405

== ENCOUNTER 2021-01-03 13:38 | Outpatient (CLI) | payer MEDICARE, SELFPAY ==
[2021-01-03 13:39] VITALS: BMI 25.8
[2021-01-03 13:58] LABS: Basophils % 0.5 % (0.1-2.0); Eosinophils # 0.1 K/mm3 (0.0-0.4); Eosinophils % 1.8 % (0.1-12.0); Hematocrit 40.4 % (37.0-47.0); Hemoglobin 13.4 g/dL (12.2-16.2); Lymphocytes # 1.2 K/mm3 (0.7-4.5); Lymphocytes % 18.1 % (10-50); Mean Corpuscular HGB Conc 33.1 g/dL (31.8-35.4); Mean Corpuscular Hemoglobin 29.4 pg (27.0-31.2); Mean Corpuscular Volume 88.8 fl (81-99); Mean Platelet Volume 7.9 fl (7.4-10.4); Monocytes # 0.4 K/mm3 (0.1-1.0); Monocytes % 6.5 % (1.7-9.3); Neutrophils % 73.1 % (37.0-80.0); Platelet Count 137 K/mm3 (142-424); Red Blood Count 4.55 M/mm3 (4.20-5.40); Red Cell Distribution Width 13.2 % (11.5-17.5); White Blood Count 6.8 K/mm3 (4.8-10.8)
[2021-01-03 15:05] LABS: Chloride 104 mmol/L (98-107); Potassium 3.7 mmoL/L (3.5-5.1); Sodium 136 mmol/L (136-145)
[2021-01-03 15:08] LABS: Alanine Aminotransferase 49 U/L (12-78); Albumin Level 4.4 g/dl (3.5-5.0); Albumin/Globulin Ratio 1.6 (1.1-1.8); Alkaline Phosphatase 195 U/L (38-126); Anion Gap 10.7 mEq/L (5-15); Aspartate Amino Transferase 46 U/L (14-36); Blood Urea Nitrogen 10 mg/dl (7-17); Calcium 9.8 mg/dl (8.4-10.2); Carbon Dioxide 25 mmol/L (22.0-30.0); Creatinine Clearance Estimated 61 mL/min (50-200); Estimated Glomerular Filt Rate 122 ml/min (>60); GFR (African American) 148 ML/MIN (>60); Globulin 2.8 g/dL (1.3-3.2); Glucose 125 mg/dl (74-100); Total Protein,Serum 7.2 g/dl (6.3-8.2)
== END 2021-01-03 13:48 | disposition home or self-care (01) ==
LOC: INF 13:38
PROVIDERS: Visit Provider Internal Medicine Medical Oncology
DX: C25.9 Malignant neoplasm of pancreas, unspecified (principal); Z45.2 Encounter for adjustment and management of vascular access device
CPT/HCPCS: 80053; 85025; J1642

== ENCOUNTER 2021-01-21 10:09 | Outpatient (CLI) | payer MEDICARE, SELFPAY ==
[2021-01-21 10:15] VITALS: BMI 25.8
[2021-01-21 10:41] LABS: Basophils % 0.5 % (0.1-2.0); Eosinophils # 0.1 K/mm3 (0.0-0.4); Eosinophils % 2.1 % (0.1-12.0); Hematocrit 39.2 % (37.0-47.0); Hemoglobin 13.2 g/dL (12.2-16.2); Lymphocytes # 1.5 K/mm3 (0.7-4.5); Lymphocytes % 23.8 % (10-50); Mean Corpuscular HGB Conc 33.6 g/dL (31.8-35.4); Mean Corpuscular Volume 86.4 fl (81-99); Mean Platelet Volume 7.4 fl (7.4-10.4); Monocytes # 0.4 K/mm3 (0.1-1.0); Monocytes % 6.6 % (1.7-9.3); Neutrophils # 4.4 K/mm3 (1.8-7.8); Platelet Count 149 K/mm3 (142-424); Red Blood Count 4.54 M/mm3 (4.20-5.40); Red Cell Distribution Width 13.3 % (11.5-17.5); White Blood Count 6.5 K/mm3 (4.8-10.8)
[2021-01-21 10:46] LABS: Alanine Aminotransferase 48 U/L (12-78); Albumin Level 4.3 g/dl (3.5-5.0); Albumin/Globulin Ratio 1.5 (1.1-1.8); Alkaline Phosphatase 179 U/L (38-126); Anion Gap 8.7 mEq/L (5-15); Aspartate Amino Transferase 46 U/L (14-36); Bilirubin,Total 1.1 mg/dl (0.2-1.3); Blood Urea Nitrogen 7 mg/dl (7-17); Calcium 9.5 mg/dl (8.4-10.2); Carbon Dioxide 26 mmol/L (22.0-30.0); Chloride 107 mmol/L (98-107); Creatinine Clearance Estimated 61 mL/min (50-200); Estimated Glomerular Filt Rate 122 ml/min (>60); GFR (African American) 148 ML/MIN (>60); Globulin 2.9 g/dL (1.3-3.2); Glucose 119 mg/dl (74-100); Potassium 3.7 mmoL/L (3.5-5.1); Sodium 138 mmol/L (136-145); Total Protein,Serum 7.2 g/dl (6.3-8.2)
== END 2021-01-21 10:28 | disposition home or self-care (01) ==
LOC: INF 10:09
PROVIDERS: PCP Internal Medicine Medical Oncology; Visit Provider Internal Medicine Medical Oncology
DX: C25.9 Malignant neoplasm of pancreas, unspecified (principal); Z45.2 Encounter for adjustment and management of vascular access device
CPT/HCPCS: 80053; 85025; J1642

== ENCOUNTER 2021-01-29 08:45 | Outpatient (CLI) | payer MEDICARE, SELFPAY ==
--- NOTE | 2021-01-29 08:49 | CT_ITS ---
PROCEDURE INFORMATION: Exam: CT Abdomen And Pelvis Without And With Contrast; Pancreas Exam date and time: 01/29/2021 8:49 AM Age: 70 years old Clinical indication: Condition or disease; Pancreatic condition; Other: HX of cancer; Primary cancer: Pancreas; Follow-up oncological assessment; Prior surgery; Surgery date: 6+ months; Surgery type: Whipple procedure; Patient HX: F/u not on chemo; Additional info: Pancreatic cancer TECHNIQUE: Imaging protocol: Computed tomography of the abdomen and pelvis without and with intravenous contrast. Exam focused on the pancreas. Radiation optimization: All CT scans at this facility use at least one of these dose optimization techniques: automated exposure control; mA and/or kV adjustment per patient size (includes targeted exams where dose is matched to clinical indication); or iterative reconstruction. Contrast material: ISOVUE; Contrast volume: 75 ml; Contrast route: INTRAVENOUS (IV); COMPARISON: CT ABDOMEN PELVIS W CON 10/23/2020 10:16 AM FINDINGS: Liver: Multiple hypodense hepatic lesions are present measuring up to 1.3 cm within the right lobe most likely related to hepatic cysts. These are unchanged. Gallbladder and bile ducts: Pneumobilia is again noted similar to the prior study. Pancreas: Pancreatic stent is noted and unchanged. Partial pancreatectomy of the pancreatic head. Spleen: Mild splenomegaly. Adrenals: Normal. No mass. Kidneys and ureters: Mild scarring of the right kidney present. The left kidney is normal. Stomach and bowel: Status post Whipple procedure. Duodenal diverticulum is present. Mild diverticulosis is present in the distal colon. Intraperitoneal space: Peritoneal fat stranding is present. Lymph nodes: There are multiple nonspecific nonpathologic but prominent lymph nodes in the mesentery. There are no mesenteric lymph nodes of pathologic dimensions. No retroperitoneal lymphadenopathy. Vasculature: The vasculature demonstrates diffuse mild atherosclerotic calcification. Bladder: Unremarkable. Reproductive: Unremarkable. Bones/joints: The lumbar spine demonstrates mild degenerative changes at multiple levels. No osteoblastic or osteolytic lesions. Soft tissues: There is a fat-containing umbilical hernia. IMPRESSION: 1. Pneumobilia is again noted similar to the prior study. 2. Mild splenomegaly. 3. Status post Whipple procedure. 4. Duodenal diverticulum is present. 5. Mild diverticulosis is present in the distal colon. 6. No osteoblastic or osteolytic lesions.
== END 2021-01-29 09:28 | disposition home or self-care (01) ==
PROVIDERS: PCP Internal Medicine Medical Oncology; Visit Provider Internal Medicine Medical Oncology
DX: C25.9 Malignant neoplasm of pancreas, unspecified (principal)
CPT/HCPCS: 74178; 96523; J1642; Q9967

== ENCOUNTER 2021-03-07 13:10 | Outpatient (CLI) | payer MEDICARE, BC, SELFPAY ==
[2021-03-07 13:14] VITALS: BMI 27.4
[2021-03-07 13:33] LABS: Basophils % 0.4 % (0.1-2.0); Eosinophils # 0.1 K/mm3 (0.0-0.4); Eosinophils % 1.5 % (0.1-12.0); Hematocrit 39.6 % (37.0-47.0); Hemoglobin 13.7 g/dL (12.2-16.2); Lymphocytes # 1.5 K/mm3 (0.7-4.5); Lymphocytes % 18.6 % (10-50); Mean Corpuscular HGB Conc 34.7 g/dL (31.8-35.4); Mean Corpuscular Hemoglobin 29.2 pg (27.0-31.2); Mean Corpuscular Volume 84.3 fl (81-99); Mean Platelet Volume 7.5 fl (7.4-10.4); Monocytes # 0.4 K/mm3 (0.1-1.0); Monocytes % 5.4 % (1.7-9.3); Neutrophils # 6.1 K/mm3 (1.8-7.8); Neutrophils % 74.1 % (37.0-80.0); Platelet Count 165 K/mm3 (142-424); Red Blood Count 4.69 M/mm3 (4.20-5.40); Red Cell Distribution Width 13.6 % (11.5-17.5); White Blood Count 8.2 K/mm3 (4.8-10.8)
[2021-03-07 13:39] LABS: Chloride 104 mmol/L (98-107); Sodium 139 mmol/L (136-145)
[2021-03-07 13:40] LABS: Potassium 3.9 mmoL/L (3.5-5.1)
[2021-03-07 13:42] LABS: Alanine Aminotransferase 46 U/L (12-78); Albumin Level 4.5 g/dl (3.5-5.0); Albumin/Globulin Ratio 1.6 (1.1-1.8); Alkaline Phosphatase 189 U/L (38-126); Anion Gap 14.9 mEq/L (5-15); Aspartate Amino Transferase 40 U/L (14-36); Bilirubin,Total 1.9 mg/dl (0.2-1.3); Blood Urea Nitrogen 8 mg/dl (7-17); Calcium 9.3 mg/dl (8.4-10.2); Carbon Dioxide 24 mmol/L (22.0-30.0); Creatinine Clearance Estimated 63 mL/min (50-200); Estimated Glomerular Filt Rate 99 ml/min (>60); GFR (African American) 120 ML/MIN (>60); Globulin 2.9 g/dL (1.3-3.2); Glucose 142 mg/dl (74-100); Total Protein,Serum 7.4 g/dl (6.3-8.2)
== END 2021-03-07 13:25 | disposition home or self-care (01) ==
PROVIDERS: PCP Internal Medicine Medical Oncology; Visit Provider Internal Medicine Medical Oncology
DX: C25.9 Malignant neoplasm of pancreas, unspecified (principal); Z45.2 Encounter for adjustment and management of vascular access device
CPT/HCPCS: 80053; 85025; J1642

== ENCOUNTER 2021-04-03 09:14 | Outpatient (CLI) | payer MEDICARE, BC, SELFPAY ==
[2021-04-03 08:56] VITALS: BMI 26.1
[2021-04-03 09:13] LABS: Basophils % 0.6 % (0.1-2.0); Eosinophils # 0.1 K/mm3 (0.0-0.4); Eosinophils % 1.8 % (0.1-12.0); Hematocrit 40.3 % (37.0-47.0); Hemoglobin 13.8 g/dL (12.2-16.2); Lymphocytes # 1.6 K/mm3 (0.7-4.5); Lymphocytes % 25.1 % (10-50); Mean Corpuscular HGB Conc 34.3 g/dL (31.8-35.4); Mean Corpuscular Hemoglobin 28.8 pg (27.0-31.2); Mean Corpuscular Volume 84.1 fl (81-99); Mean Platelet Volume 7.8 fl (7.4-10.4); Monocytes # 0.4 K/mm3 (0.1-1.0); Neutrophils # 4.1 K/mm3 (1.8-7.8); Neutrophils % 66.5 % (37.0-80.0); Platelet Count 155 K/mm3 (142-424); Red Blood Count 4.79 M/mm3 (4.20-5.40); Red Cell Distribution Width 13.7 % (11.5-17.5); White Blood Count 6.2 K/mm3 (4.8-10.8)
--- NOTE | 2021-04-03 09:20 | CT_ITS ---
PROCEDURE INFORMATION: Exam: CT Abdomen And Pelvis Without And With Contrast Exam date and time: 04/03/2021 9:20 AM Age: 70 years old Clinical indication: Condition or disease; Pancreatic condition; Follow-up oncological assessment; Prior surgery; Surgery date: 6+ months; Surgery type: Whipple procedure; Patient HX: Pancreatic cancer f/u TECHNIQUE: Imaging protocol: Computed tomography of the abdomen and pelvis without and with contrast. Radiation optimization: All CT scans at this facility use at least one of these dose optimization techniques: automated exposure control; mA and/or kV adjustment per patient size (includes targeted exams where dose is matched to clinical indication); or iterative reconstruction. Contrast material: ISOVUE; Contrast volume: 75 ml; Contrast route: INTRAVENOUS (IV); COMPARISON: CT ABDOMEN PELVIS WO/W CON 01/29/2021 9:03 AM FINDINGS: Liver: Stable nodular hypodense lesions in the liver, including a 1.4 cm cyst in the medial segment of the left hepatic lobe. Gallbladder and bile ducts: Status post cholecystectomy with pneumobilia. 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 Internal pancreatic stent. Spleen: Enlarged spleen measuring 14.2 cm in length. 13 mm accessory spleen. Adrenal glands: Unremarkable adrenals. Kidneys and ureters: Stable right renal scarring. No hydronephrosis. Stomach and bowel: Wall thickening in the postoperative stomach. Mild small bowel dilatation. Prominent stool. Duodenal and colonic diverticula, without pericolonic inflammation. Appendix: No acute appendicitis. Intraperitoneal space: Residual infiltration of mesenteric fat . Poorly defined 2.4 x 1.8 by 3.9 cm spiculated density in the midline at the L2 level, interposed between the mesenteric vessels and abdominal aorta, which previously measured 1.8 x 1.3 by 2.5 cm. Vasculature: Vascular calcification. Normal caliber of the upper abdominal aorta. Lymph nodes: Multiple lymph nodes, the majority of which are subcentimeter in size. Urinary bladder: Mild anterior bladder wall thickening. Reproductive: Enlargement of the postmenopausal uterus. Bones/joints: 7 mm bone island in the right ilium. Osteopenia and mild degenerative change. Soft tissues: Postoperative scarring in the anterior abdominal wall midline. IMPRESSION: 1. Poorly defined 2.4 x 1.8 by 3.9 cm spiculated density in the midline at the L2 level, interposed between the mesenteric vessels and abdominal aorta, which previously measured 1.8 x 1.3 by 2.5 cm. 2. Wall thickening in the postoperative stomach, in the setting of Whipple procedure. 3. Residual infiltration of mesenteric fat. 4. Additional findings as described above. Impression.
--- NOTE | 2021-04-03 09:20 | CT_ITS ---
PROCEDURE INFORMATION: Exam: CT Chest Without and With Contrast; Diagnostic Exam date and time: 04/03/2021 9:20 AM Age: 70 years old Clinical indication: Condition or disease; Follow-up oncological assessment; Prior surgery; Surgery date: 6+ months; Surgery type: Whipple procedure; Patient HX: Pancreatic cancer TECHNIQUE: Imaging protocol: Diagnostic computed tomography of the chest without and with contrast. Radiation optimization: All CT scans at this facility use at least one of these dose optimization techniques: automated exposure control; mA and/or kV adjustment per patient size (includes targeted exams where dose is matched to clinical indication); or iterative reconstruction. Contrast material: ISOVUE; Contrast volume: 75 ml; Contrast route: IV; COMPARISON: CT CHEST W CON 10/23/2020 10:16 AM FINDINGS: Tubes, catheters and devices: Termination of med port catheter at the cavoatrial junction. Lungs: Newly developed multiple bilateral subcentimeter pulmonary nodules, consistent with metastases; including 5.5 mm right upper lobe and 5 mm left upper lobe nodules. Pleural spaces: No pleural effusion. Heart: No cardiomegaly. Aorta: Ectasia of the thoracic aorta. Lymph nodes: Multiple noncalcified and calcified lymph nodes, the majority of which are subcentimeter in size. Bones/joints: Old left rib fracture. Mild degenerative change. Soft tissues: Unremarkable. IMPRESSION: 1. Newly developed multiple bilateral subcentimeter pulmonary nodules, consistent with metastases. 2. Additional findings as described above.
[2021-04-03 09:33] LABS: Alanine Aminotransferase 44 U/L (12-78); Albumin Level 4.4 g/dl (3.5-5.0); Albumin/Globulin Ratio 1.6 (1.1-1.8); Alkaline Phosphatase 178 U/L (38-126); Anion Gap 11.7 mEq/L (5-15); Aspartate Amino Transferase 38 U/L (14-36); Bilirubin,Total 1.5 mg/dl (0.2-1.3); Blood Urea Nitrogen 5 mg/dl (7-17); Calcium 9.8 mg/dl (8.4-10.2); Carbon Dioxide 28 mmol/L (22.0-30.0); Chloride 102 mmol/L (98-107); Creatinine Clearance Estimated 62 mL/min (50-200); Estimated Glomerular Filt Rate 99 ml/min (>60); GFR (African American) 120 ML/MIN (>60); Globulin 2.7 g/dL (1.3-3.2); Glucose 128 mg/dl (74-100); Potassium 3.7 mmoL/L (3.5-5.1); Sodium 138 mmol/L (136-145); Total Protein,Serum 7.1 g/dl (6.3-8.2)
== END 2021-04-03 10:11 | disposition home or self-care (01) ==
PROVIDERS: PCP Internal Medicine Adolescent Medicine; Visit Provider Internal Medicine Medical Oncology
DX: C25.9 Malignant neoplasm of pancreas, unspecified (principal)
CPT/HCPCS: 71270; 74178; 80053; 85025; J1642; Q9967

== ENCOUNTER 2021-04-16 08:00 | Outpatient (CLI) | payer MEDICARE, BC, SELFPAY ==
[2021-04-16] VITALS (23 sets, daily range): BP systolic 140–176; BP diastolic 56–106; PULSE 83–97; RESP 17–18; TEMP 36.7; O2SAT 97–98; BMI 25.0
[2021-04-16 08:52] LABS: Basophils % 0.6 % (0.1-2.0); Eosinophils # 0.2 K/mm3 (0.0-0.4); Eosinophils % 2.1 % (0.1-12.0); Hematocrit 39.7 % (37.0-47.0); Hemoglobin 13.6 g/dL (12.2-16.2); Lymphocytes # 1.5 K/mm3 (0.7-4.5); Lymphocytes % 21.8 % (10-50); Mean Corpuscular HGB Conc 34.3 g/dL (31.8-35.4); Mean Corpuscular Volume 84.4 fl (81-99); Mean Platelet Volume 7.3 fl (7.4-10.4); Monocytes # 0.4 K/mm3 (0.1-1.0); Monocytes % 6.3 % (1.7-9.3); Neutrophils # 4.9 K/mm3 (1.8-7.8); Neutrophils % 69.2 % (37.0-80.0); Platelet Count 164 K/mm3 (142-424)
[2021-04-16 08:57] LABS: Chloride 104 mmol/L (98-107); Potassium 3.7 mmoL/L (3.5-5.1); Sodium 138 mmol/L (136-145)
[2021-04-16 08:59] LABS: Blood Urea Nitrogen 7 mg/dl (7-17); Creatinine Clearance Estimated 57 mL/min (50-200); Estimated Glomerular Filt Rate 122 ml/min (>60); GFR (African American) 148 ML/MIN (>60)
[2021-04-16 09:00] LABS: Alanine Aminotransferase 71 U/L (12-78); Albumin Level 4.5 g/dl (3.5-5.0); Albumin/Globulin Ratio 1.6 (1.1-1.8); Alkaline Phosphatase 203 U/L (38-126); Anion Gap 11.7 mEq/L (5-15); Aspartate Amino Transferase 49 U/L (14-36); Calcium 9.6 mg/dl (8.4-10.2); Carbon Dioxide 26 mmol/L (22.0-30.0); Globulin 2.9 g/dL (1.3-3.2); Glucose 123 mg/dl (74-100); Total Protein,Serum 7.4 g/dl (6.3-8.2)
--- NOTE | 2021-04-16 09:35 | PC.NURSE ---
0935- pt labs reviewed and pts potassium level is 3.7 today. per MD order pt is given 40meq Potassium PO at this time.
--- NOTE | 2021-04-16 09:38 | PC.NURSE ---
0938- pt pre-fluids are started at this time.
--- NOTE | 2021-04-16 10:46 | PC.NURSE ---
1046- pt oxaliplatin and leucovorin started at this time
--- NOTE | 2021-04-16 12:45 | PC.NURSE ---
1245- pt up to the bathroom, ambulated independently. no complaints at this time
--- NOTE | 2021-04-16 13:30 | INFXCTL.NOTE ---
1330- pt complained of an upset stomach. saltine crackers given to pt as requested to help settle stomach.
--- NOTE | 2021-04-16 13:51 | PC.NURSE ---
1351 post fluids started at this time
--- NOTE | 2021-04-16 14:30 | PC.NURSE ---
1430- Irinotecan started at this time.
--- NOTE | 2021-04-16 15:49 | PC.NURSE ---
report received from America Black RN on current pt status. pt currently recieving iv chemotherapy-Irinotecan infusing. pt reports some mild nausea-no vomiting, pt condition stable, vss.
== END 2021-04-16 16:15 | disposition home or self-care (01) ==
LOC: INF 08:28
PROVIDERS: Visit Provider Internal Medicine Medical Oncology
DX: Z51.11 Encounter for antineoplastic chemotherapy (principal); C25.9 Malignant neoplasm of pancreas, unspecified
CPT/HCPCS: 80053; 85025; 96413; 96415; 96417; J0640; J9206; J9263; Q0166

== ENCOUNTER 2021-04-30 08:15 | Outpatient (CLI) | payer MEDICARE, BC, SELFPAY ==
[2021-04-30] VITALS (20 sets, daily range): BP systolic 125–166; BP diastolic 69–93; PULSE 87–97; RESP 17; TEMP 36.7; O2SAT 97; BMI 25.4
[2021-04-30 08:43] LABS: Alanine Aminotransferase 50 U/L (12-78); Albumin Level 4.1 g/dl (3.5-5.0); Albumin/Globulin Ratio 1.6 (1.1-1.8); Alkaline Phosphatase 187 U/L (38-126); Anion Gap 12.5 mEq/L (5-15); Aspartate Amino Transferase 45 U/L (14-36); Basophils % 0.6 % (0.1-2.0); Bilirubin,Total 0.7 mg/dl (0.2-1.3); Blood Urea Nitrogen 5 mg/dl (7-17); Calcium 8.8 mg/dl (8.4-10.2); Carbon Dioxide 26 mmol/L (22.0-30.0); Chloride 105 mmol/L (98-107); Creatinine Clearance Estimated 60 mL/min (50-200); Eosinophils # 0.2 K/mm3 (0.0-0.4); Eosinophils % 3.7 % (0.1-12.0); Estimated Glomerular Filt Rate 99 ml/min (>60); GFR (African American) 120 ML/MIN (>60); Globulin 2.6 g/dL (1.3-3.2); Glucose 121 mg/dl (74-100); Hematocrit 38.2 % (37.0-47.0); Hemoglobin 12.9 g/dL (12.2-16.2); Lymphocytes # 1.3 K/mm3 (0.7-4.5); Lymphocytes % 32.3 % (10-50); Mean Corpuscular HGB Conc 33.8 g/dL (31.8-35.4); Mean Corpuscular Hemoglobin 28.7 pg (27.0-31.2); Mean Corpuscular Volume 85.1 fl (81-99); Mean Platelet Volume 7.9 fl (7.4-10.4); Monocytes # 0.4 K/mm3 (0.1-1.0); Monocytes % 9.4 % (1.7-9.3); Neutrophils # 2.2 K/mm3 (1.8-7.8); Neutrophils % 53.9 % (37.0-80.0); Platelet Count 194 K/mm3 (142-424); Potassium 3.5 mmoL/L (3.5-5.1); Red Blood Count 4.49 M/mm3 (4.20-5.40); Red Cell Distribution Width 13.9 % (11.5-17.5); Sodium 140 mmol/L (136-145); Total Protein,Serum 6.7 g/dl (6.3-8.2)
== END 2021-04-30 16:20 | disposition home or self-care (01) ==
LOC: INF 08:17
PROVIDERS: Visit Provider Internal Medicine Medical Oncology
DX: Z51.11 Encounter for antineoplastic chemotherapy (principal); C25.9 Malignant neoplasm of pancreas, unspecified
CPT/HCPCS: 80053; 85025; 96413; 96415; 96417; J0640; J1642; J8501; J9206; J9263; Q0166

== ENCOUNTER 2021-05-14 08:35 | Outpatient (CLI) | payer MEDICARE, BC, SELFPAY ==
[2021-05-14] VITALS (13 sets, daily range): BP systolic 130–170; BP diastolic 70–80; PULSE 81–89; RESP 18; TEMP 36.4; O2SAT 98–99; BMI 25.4
[2021-05-14 08:58] LABS: Basophils % 0.5 % (0.1-2.0); Eosinophils # 0.1 K/mm3 (0.0-0.4); Eosinophils % 1.4 % (0.1-12.0); Hematocrit 38.2 % (37.0-47.0); Lymphocytes # 1.5 K/mm3 (0.7-4.5); Lymphocytes % 24.2 % (10-50); Mean Corpuscular HGB Conc 34.1 g/dL (31.8-35.4); Mean Corpuscular Hemoglobin 29.4 pg (27.0-31.2); Mean Corpuscular Volume 86.2 fl (81-99); Mean Platelet Volume 8.6 fl (7.4-10.4); Monocytes # 0.6 K/mm3 (0.1-1.0); Monocytes % 9.1 % (1.7-9.3); Neutrophils # 4.1 K/mm3 (1.8-7.8); Neutrophils % 64.8 % (37.0-80.0); Platelet Count 136 K/mm3 (142-424); Red Blood Count 4.43 M/mm3 (4.20-5.40); Red Cell Distribution Width 14.5 % (11.5-17.5); White Blood Count 6.4 K/mm3 (4.8-10.8)
[2021-05-14 09:01] LABS: Chloride 104 mmol/L (98-107); Potassium 3.6 mmoL/L (3.5-5.1); Sodium 138 mmol/L (136-145)
[2021-05-14 09:03] LABS: Alanine Aminotransferase 77 U/L (12-78); Aspartate Amino Transferase 58 U/L (14-36); Blood Urea Nitrogen 6 mg/dl (7-17); Creatinine Clearance Estimated 60 mL/min (50-200); Estimated Glomerular Filt Rate 122 ml/min (>60); GFR (African American) 148 ML/MIN (>60)
[2021-05-14 09:04] LABS: Albumin Level 3.8 g/dl (3.5-5.0); Albumin/Globulin Ratio 1.3 (1.1-1.8); Alkaline Phosphatase 255 U/L (38-126); Anion Gap 11.6 mEq/L (5-15); Bilirubin,Total 0.8 mg/dl (0.2-1.3); Calcium 9.1 mg/dl (8.4-10.2); Carbon Dioxide 26 mmol/L (22.0-30.0); Glucose 121 mg/dl (74-100); Total Protein,Serum 6.8 g/dl (6.3-8.2)
--- NOTE | 2021-05-14 15:35 | PC.NURSE ---
05/14/2021 3795-spoke with pt and discussed that Dr. Bonilla had been contacted regarding her concerns about treatment nausea and perhaps foregoing the cont 5fu infusion. Instructed the pt that MD was ok for her to either get the treatment or go without the treatment, the decision was left up to the pt. The pt ultimately decided to go ahead and take the infusion. Contacted [facility], spoke with daniela-told her about the time and date for the pt to be unhooked and flushed.
== END 2021-05-14 15:30 | disposition home or self-care (01) ==
LOC: INF 08:36
PROVIDERS: PCP Internal Medicine Adolescent Medicine; Visit Provider Internal Medicine Medical Oncology
DX: Z51.11 Encounter for antineoplastic chemotherapy (principal); C25.9 Malignant neoplasm of pancreas, unspecified
CPT/HCPCS: 80053; 85025; 96413; 96415; 96417; J0640; J8501; J9206; J9263; Q0166

== ENCOUNTER 2021-05-28 08:34 | Outpatient (CLI) | payer MEDICARE, BC, SELFPAY ==
[2021-05-28] VITALS (14 sets, daily range): BP systolic 132–158; BP diastolic 69–97; PULSE 78–118; RESP 18; O2SAT 98; BMI 25.4
[2021-05-28 09:29] LABS: Basophils % 0.4 % (0.1-2.0); Eosinophils # 0.1 K/mm3 (0.0-0.4); Hematocrit 39.7 % (37.0-47.0); Hemoglobin 13.2 g/dL (12.2-16.2); Lymphocytes # 1.4 K/mm3 (0.7-4.5); Lymphocytes % 24.4 % (10-50); Mean Corpuscular HGB Conc 33.1 g/dL (31.8-35.4); Mean Corpuscular Hemoglobin 29.4 pg (27.0-31.2); Mean Corpuscular Volume 88.6 fl (81-99); Mean Platelet Volume 7.1 fl (7.4-10.4); Monocytes # 0.6 K/mm3 (0.1-1.0); Monocytes % 10.6 % (1.7-9.3); Neutrophils # 3.6 K/mm3 (1.8-7.8); Neutrophils % 62.5 % (37.0-80.0); Platelet Count 146 K/mm3 (142-424); Red Blood Count 4.48 M/mm3 (4.20-5.40); Red Cell Distribution Width 14.4 % (11.5-17.5); White Blood Count 5.7 K/mm3 (4.8-10.8)
[2021-05-28 09:35] LABS: Alanine Aminotransferase 60 U/L (12-78); Albumin Level 3.8 g/dl (3.5-5.0); Albumin/Globulin Ratio 1.3 (1.1-1.8); Alkaline Phosphatase 239 U/L (38-126); Anion Gap 10.2 mEq/L (5-15); Aspartate Amino Transferase 61 U/L (14-36); Bilirubin,Total 0.8 mg/dl (0.2-1.3); Blood Urea Nitrogen 4 mg/dl (7-17); Carbon Dioxide 28 mmol/L (22.0-30.0); Chloride 104 mmol/L (98-107); Creatinine Clearance Estimated 60 mL/min (50-200); Estimated Glomerular Filt Rate 122 ml/min (>60); GFR (African American) 148 ML/MIN (>60); Glucose 92 mg/dl (74-100); Potassium 3.2 mmoL/L (3.5-5.1); Sodium 139 mmol/L (136-145); Total Protein,Serum 6.8 g/dl (6.3-8.2)
== END 2021-05-28 15:30 | disposition home or self-care (01) ==
LOC: INF 08:35
PROVIDERS: PCP Internal Medicine Adolescent Medicine; Visit Provider Internal Medicine Medical Oncology
DX: Z51.11 Encounter for antineoplastic chemotherapy (principal); C25.9 Malignant neoplasm of pancreas, unspecified
CPT/HCPCS: 80053; 85025; 96413; 96415; 96417; J0640; J7060; J9206; J9263; Q0166

== ENCOUNTER 2021-06-03 09:04 | Outpatient (CLI) | payer MEDICARE, BC, SELFPAY ==
[2021-06-03 08:54] VITALS: BMI 25.1
[2021-06-03 09:09] LABS: Basophils % 0.7 % (0.1-2.0); Eosinophils # 0.1 K/mm3 (0.0-0.4); Eosinophils % 2.9 % (0.1-12.0); Hematocrit 38.6 % (37.0-47.0); Hemoglobin 13.1 g/dL (12.2-16.2); Lymphocytes # 1.4 K/mm3 (0.7-4.5); Lymphocytes % 39.1 % (10-50); Mean Corpuscular HGB Conc 33.8 g/dL (31.8-35.4); Mean Corpuscular Hemoglobin 29.6 pg (27.0-31.2); Mean Corpuscular Volume 87.6 fl (81-99); Mean Platelet Volume 7.2 fl (7.4-10.4); Monocytes # 0.1 K/mm3 (0.1-1.0); Monocytes % 3.6 % (1.7-9.3); Neutrophils % 53.7 % (37.0-80.0); Platelet Count 163 K/mm3 (142-424); Red Blood Count 4.41 M/mm3 (4.20-5.40); Red Cell Distribution Width 13.7 % (11.5-17.5); White Blood Count 3.7 K/mm3 (4.8-10.8)
--- NOTE | 2021-06-03 09:10 | CT_ITS ---
PROCEDURE: CT CHEST W CON CLINCAL INDICATION: PANCREATIC CA COMPARISON: CT CT CHEST WO/W CON from 04/03/2021 TECHNIQUE: IV Contrast: 75ml Isovue 370 Axial images obtained with sagittal and coronal reformats. All CT scans at the facility use one or more dose reduction, viz: automated exposure control, ma/kV adjustment per patient size (including targeted exams where dose is matched to indication, i.e. head), or iterative reconstruction technique. FINDINGS: HEART AND MEDIASTINAL STRUCTURES: No mediastinal or hilar mass or adenopathy. LUNGS AND PLEURAL SPACES: There are numerous noncalcified pulmonary nodules consistent with metastatic disease. The nodules overall do not appear significantly changed. No effusions. No infiltrates. BONY STRUCTURES: No acute bony abnormalities apparent. UPPER ABDOMEN: See abdomen report ADDITIONAL FINDINGS: No other significant abnormalities. IMPRESSION: Numerous small bilateral pulmonary nodules consistent with metastatic disease which overall do not appear significantly changed. Dictated by: Pramod Camilo MD 06/04/2021 08:18 Pramod aCmilo MD in [place] 06/04/2021 08:18
[2021-06-03 09:19] LABS: Alanine Aminotransferase 95 U/L (12-78); Albumin Level 3.8 g/dl (3.5-5.0); Albumin/Globulin Ratio 1.2 (1.1-1.8); Alkaline Phosphatase 295 U/L (38-126); Anion Gap 13.5 mEq/L (5-15); Aspartate Amino Transferase 68 U/L (14-36); Bilirubin,Total 0.7 mg/dl (0.2-1.3); Blood Urea Nitrogen 8 mg/dl (7-17); Calcium 8.9 mg/dl (8.4-10.2); Carbon Dioxide 23 mmol/L (22.0-30.0); Chloride 103 mmol/L (98-107); Creatinine Clearance Estimated 57 mL/min (50-200); Estimated Glomerular Filt Rate 122 ml/min (>60); GFR (African American) 148 ML/MIN (>60); Globulin 3.1 g/dL (1.3-3.2); Glucose 125 mg/dl (74-100); Potassium 3.5 mmoL/L (3.5-5.1); Sodium 136 mmol/L (136-145); Total Protein,Serum 6.9 g/dl (6.3-8.2)
--- NOTE | 2021-06-03 09:35 | CT_ITS ---
PROCEDURE: CT ABDOMEN PELVIS W CON CLINICAL INDICATION: pacreatic cancer COMPARISON: CT CT ABDOMEN PELVIS WO/W CON from 01/23/[address] ABDOMEN PELVIS W CON from 04/16/[address] ABDOMEN PELVIS WO/W CON from 07/17/[address] ABDOMEN PELVIS WO/W CON from 04/03/2021 TECHNIQUE: IV Contrast: 75ML Isovue 370 Oral Contrast None Axial images obtained with sagittal and coronal reformats. All CT scans at the facility use one or more dose reduction, viz: automated exposure control, ma/kV adjustment per patient size (including targeted exams where dose is matched to indication, i.e. head), or iterative reconstruction technique. FINDINGS: Numerous hypodense lesions are present within the liver overall not significantly changed. There is pneumobilia. Splenomegaly is present. The spleen measures 14 cm in longest dimension. The adrenal glands have an unremarkable appearance as do the kidneys. There is a pancreatic stent present. There has been a prior Whipple procedure. There is mild haziness of the fat around the superior mesenteric artery not significantly changed with a spiculated density with central calcification once again noted between the SMA and the aorta not significantly changed. There is mild diffuse thickening of the cecum and ascending colon the. There is mild small bowel wall thickening also noted. Haziness of the fat is noted in the pericolic region on the right. No evidence of appendicitis or diverticulitis. There is colonic diverticulosis. No pelvic mass. Small amount fluid is present in the right adnexal region. Sclerotic focus is present in the right ilium laterally and may be due to a bone island not significantly changed.. IMPRESSION: 1. Overall no significant change in the poorly defined spiculated density in the midline at the L2 level interposed between the mesenteric vessels and abdominal aorta with central calcification. 2. Overall no change in the multiple hypodensities of the liver 3. Persistent infiltration of the retroperitoneal mesenteric fat 4. Status post Whipple procedure. There is mild diffuse thickening of the ascending and transverse colon and a few small bowel loops which may indicate enterocolitis with some haziness of the fat in the right pericolic gutter 5. Status post Whipple seizure with pancreatic stent in place as before Dictated by: Pramod Camilo MD 06/04/2021 08:39 Pramod Camilo MD in [place] 06/04/2021 08:39
== END 2021-06-03 10:10 | disposition home or self-care (01) ==
LOC: RAD 09:04
PROVIDERS: PCP Internal Medicine Adolescent Medicine; Visit Provider Internal Medicine Medical Oncology
DX: C25.9 Malignant neoplasm of pancreas, unspecified (principal)
CPT/HCPCS: 71260; 74177; 80053; 85025; J1642; Q9967

== ENCOUNTER 2021-07-04 12:32 | Outpatient (CLI) | payer MEDICARE, BC, SELFPAY ==
[2021-07-04 12:42] VITALS: BMI 25.4
[2021-07-04 13:01] LABS: Basophils % 0.2 % (0.1-2.0); Eosinophils # 0.2 K/mm3 (0.0-0.4); Eosinophils % 2.2 % (0.1-12.0); Hematocrit 40.6 % (37.0-47.0); Hemoglobin 13.2 g/dL (12.2-16.2); Lymphocytes # 1.7 K/mm3 (0.7-4.5); Mean Corpuscular HGB Conc 32.4 g/dL (31.8-35.4); Mean Corpuscular Volume 92.5 fl (81-99); Mean Platelet Volume 7.7 fl (7.4-10.4); Monocytes # 0.6 K/mm3 (0.1-1.0); Monocytes % 7.1 % (1.7-9.3); Neutrophils # 5.7 K/mm3 (1.8-7.8); Neutrophils % 69.5 % (37.0-80.0); Platelet Count 133 K/mm3 (142-424); Red Blood Count 4.39 M/mm3 (4.20-5.40); White Blood Count 8.2 K/mm3 (4.8-10.8)
[2021-07-04 13:11] LABS: Chloride 103 mmol/L (98-107); Potassium 3.4 mmoL/L (3.5-5.1); Sodium 137 mmol/L (136-145)
[2021-07-04 13:14] LABS: Alanine Aminotransferase 49 U/L (12-78); Albumin Level 3.8 g/dl (3.5-5.0); Albumin/Globulin Ratio 1.2 (1.1-1.8); Alkaline Phosphatase 216 U/L (38-126); Anion Gap 13.4 mEq/L (5-15); Aspartate Amino Transferase 58 U/L (14-36); Bilirubin,Total 1.5 mg/dl (0.2-1.3); Blood Urea Nitrogen 6 mg/dl (7-17); Carbon Dioxide 24 mmol/L (22.0-30.0); Creatinine Clearance Estimated 60 mL/min (50-200); Estimated Glomerular Filt Rate 122 ml/min (>60); GFR (African American) 148 ML/MIN (>60); Globulin 3.1 g/dL (1.3-3.2); Total Protein,Serum 6.9 g/dl (6.3-8.2)
[2021-07-04 13:15] LABS: Calcium 9.1 mg/dl (8.4-10.2); Glucose 137 mg/dl (74-100)
== END 2021-07-04 12:58 | disposition home or self-care (01) ==
LOC: INF 12:34
PROVIDERS: PCP Internal Medicine Adolescent Medicine; Visit Provider Internal Medicine Medical Oncology
DX: C25.9 Malignant neoplasm of pancreas, unspecified (principal); Z45.2 Encounter for adjustment and management of vascular access device
CPT/HCPCS: 80053; 85025; J1642

== ENCOUNTER → 2021-07-13 11:40 | Outpatient (CLI) | payer MEDICARE, BC, SELFPAY ==
--- NOTE | 2021-07-13 12:18 | XR_ITS ---
PROCEDURE INFORMATION: Exam: XR Right Humerus Exam date and time: 07/13/2021 12:18 PM Age: 70 years old Clinical indication: Pain; Shoulder; Right; Additional info: Right humerus pain, fall TECHNIQUE: Imaging protocol: XR Right humerus. Views: 2 or more views. COMPARISON: CT CHEST W CON 06/03/2021 9:42 AM FINDINGS: Bones/joints: Comminuted and displaced fracture humeral neck with extension to the greater tuberosity. Distal humerus intact. Soft tissues: Normal. IMPRESSION: Comminuted and displaced fracture humeral neck with extension to the greater tuberosity.
--- NOTE | 2021-07-13 12:19 | XR_ITS ---
PROCEDURE INFORMATION: Exam: XR Right Shoulder Exam date and time: 07/13/2021 12:19 PM Age: 70 years old Clinical indication: Pain; Shoulder; Right; Additional info: Right shoulder pain, fall TECHNIQUE: Imaging protocol: XR Right shoulder. Views: 2 or more views. COMPARISON: CT CHEST W CON 06/03/2021 9:42 AM FINDINGS: Bones/joints: Comminuted and displaced fracture through the humeral neck, with involvement of the greater tuberosity. No dislocation. Soft tissues: Normal. IMPRESSION: Comminuted and displaced fracture through the humeral neck, with involvement of the greater tuberosity.
== END ==
PROVIDERS: PCP Internal Medicine Adolescent Medicine; Visit Provider Internal Medicine Adolescent Medicine
DX: M79.601 Pain in right arm (principal); W19.XXXA Unspecified fall, initial encounter; Y92.009 Unspecified place in unspecified non-institutional (private) residence as the place of occurrence of the external cause
CPT/HCPCS: 73030; 73060

== ENCOUNTER 2021-07-25 08:31 | Outpatient (CLI) | payer MEDICARE, BC, SELFPAY ==
[2021-07-25 08:37] VITALS: BMI 24.1
--- NOTE | 2021-07-25 08:50 | CT_ITS ---
PROCEDURE: CT CHEST W CON CLINCAL INDICATION: PANCREATIC CANCER COMPARISON: CT CT CHEST W CON from 06/03/2021 TECHNIQUE: IV Contrast: 75ml Isovue 370 Axial images obtained with sagittal and coronal reformats. All CT scans at the facility use one or more dose reduction, viz: automated exposure control, ma/kV adjustment per patient size (including targeted exams where dose is matched to indication, i.e. head), or iterative reconstruction technique. FINDINGS: HEART AND MEDIASTINAL STRUCTURES: Cardiomegaly. Scattered small mediastinal lymph nodes unchanged. MediPort catheter present from right subclavian approach with tip region SVC. LUNGS AND PLEURAL SPACES: There are numerous small bilateral pulmonary nodules consistent with metastatic disease. A few of these nodules appears very slightly larger. Most are unchanged. No obvious new nodules apparent. Left-sided lung volume loss is present with some mild atelectatic changes in the left lower lobe. BONY STRUCTURES: Comminuted right humeral neck fracture UPPER ABDOMEN: See abdomen report of the same day ADDITIONAL FINDINGS: No other significant abnormalities. IMPRESSION: Numerous pulmonary metastasis. A few of these nodules appears slightly larger compared to the previous exam with most nodules unchanged. Comminuted right humeral neck fracture Dictated by: Pramod Camilo MD 07/26/2021 07:21 Pramod Camilo MD in [facility] 07/26/2021 07:21
--- NOTE | 2021-07-25 08:50 | CT_ITS ---
PROCEDURE: CT ABDOMEN PELVIS W CON CLINICAL INDICATION: PANCREATIC CANCER COMPARISON: CT CT ABDOMEN PELVIS W CON from 06/03/2021 TECHNIQUE: IV Contrast: 75ML Isovue 370 Oral Contrast none Axial images obtained with sagittal and coronal reformats. All CT scans at the facility use one or more dose reduction, viz: automated exposure control, ma/kV adjustment per patient size (including targeted exams where dose is matched to indication, i.e. head), or iterative reconstruction technique. FINDINGS: LOWER THORAX: Please see chest CT report of the same day ABDOMEN & PELVIS: No change in the 2 hypodense hepatic lesions. There is fatty liver infiltration with some sparing of the periphery of the right hepatic lobe. Status post Whipple procedure with pneumobilia. Splenomegaly at 14 cm. Pancreatic ductal stent is present. Persistent infiltration of the mesenteric fat which appears somewhat more prominent. No change in the spiculated density interposed between the SMA and aorta measuring approximately 2 cm. The adrenal glands and kidneys have an unremarkable appearance. There is a small amount fluid in the pelvis and left pericolic gutter. There is colonic diverticulosis. No evidence of diverticulitis. Mild thickening once again noted involving the ascending colon and hepatic flexure. No intestinal obstruction or free air. Sclerotic focus noted of the right ilium anteriorly at the iliac crest unchanged. IMPRESSION: Stable hypodense hepatic lesions and sclerotic soft tissue density with central calcification in the preaortic region at the SMA region. Slight increase in haziness of the mesenteric fat with a small amount fluid in the pelvis and left pericolic gutter. Mild thickening of the ascending colon possibly related to colitis. Colonic diverticulosis without diverticulitis. Dictated by: Pramod Camilo MD 07/26/2021 07:31 Pramod Camilo MD in [facility] 07/26/2021 07:31
[2021-07-25 08:54] LABS: Basophils % 0.7 % (0.1-2.0); Eosinophils # 0.1 K/mm3 (0.0-0.4); Eosinophils % 1.9 % (0.1-12.0); Hemoglobin 12.4 g/dL (12.2-16.2); Lymphocytes # 1.3 K/mm3 (0.7-4.5); Lymphocytes % 23.9 % (10-50); Mean Corpuscular HGB Conc 32.7 g/dL (31.8-35.4); Mean Corpuscular Hemoglobin 29.9 pg (27.0-31.2); Mean Corpuscular Volume 91.2 fl (81-99); Mean Platelet Volume 8.5 fl (7.4-10.4); Monocytes # 0.4 K/mm3 (0.1-1.0); Monocytes % 6.6 % (1.7-9.3); Neutrophils # 3.7 K/mm3 (1.8-7.8); Neutrophils % 66.9 % (37.0-80.0); Platelet Count 193 K/mm3 (142-424); Red Blood Count 4.17 M/mm3 (4.20-5.40); Red Cell Distribution Width 14.4 % (11.5-17.5); White Blood Count 5.5 K/mm3 (4.8-10.8)
[2021-07-25 09:10] LABS: Alanine Aminotransferase 37 U/L (12-78); Albumin Level 3.7 g/dl (3.5-5.0); Albumin/Globulin Ratio 1.2 (1.1-1.8); Alkaline Phosphatase 253 U/L (38-126); Anion Gap 10.6 mEq/L (5-15); Aspartate Amino Transferase 53 U/L (14-36); Bilirubin,Total 2.2 mg/dl (0.2-1.3); Blood Urea Nitrogen 5 mg/dl (7-17); Carbon Dioxide 26 mmol/L (22.0-30.0); Chloride 103 mmol/L (98-107); Creatinine Clearance Estimated 55 mL/min (50-200); Estimated Glomerular Filt Rate 158 ml/min (>60); GFR (African American) 191 ML/MIN (>60); Globulin 3.1 g/dL (1.3-3.2); Glucose 119 mg/dl (74-100); Potassium 3.6 mmoL/L (3.5-5.1); Sodium 136 mmol/L (136-145); Total Protein,Serum 6.8 g/dl (6.3-8.2)
== END 2021-07-25 09:50 | disposition home or self-care (01) ==
LOC: INF 08:32
PROVIDERS: PCP Internal Medicine Adolescent Medicine; Visit Provider Internal Medicine Medical Oncology
DX: C25.9 Malignant neoplasm of pancreas, unspecified (principal)
CPT/HCPCS: 71260; 74177; 80053; 85025; J1642; Q9967

== ENCOUNTER → 2021-08-06 10:24 | Outpatient (CLI) | payer MEDICARE, BC, SELFPAY ==
--- NOTE | 2021-08-06 10:28 | XR_ITS ---
PROCEDURE: XR SHOULDER RT MIN 2V CLINICAL INDICATION: right proximal humerus fx COMPARISON: CR SHOU3L [id number] from 01/01/2017 CR XR SHOULDER RT MIN 2V from 07/13/2021 FINDINGS: Mild osteoarthritic changes are present at the acromioclavicular joint. Comminuted right humeral neck fracture is present with mild anterior displacement of the distal fracture fragment. There appears to be some callus formation developing laterally. There is impaction of the fracture fragments. The humeral head is located. MediPort catheter is present from right subclavian approach with the tip in the region the SVC IMPRESSION: Healing right humeral neck fracture Dictated by: Pramod Camilo MD 08/06/2021 15:33 Pramod Camilo MD in [facility] 08/06/2021 15:33
== END ==
PROVIDERS: PCP Internal Medicine Adolescent Medicine; Visit Provider Orthopaedic Surgery
DX: S42.201A Unspecified fracture of upper end of right humerus, initial encounter for closed fracture (principal)
CPT/HCPCS: 73030

== ENCOUNTER → 2021-08-27 12:28 | Outpatient (CLI) | payer MEDICARE, BC, SELFPAY ==
--- NOTE | 2021-08-27 12:32 | XR_ITS ---
PROCEDURE: XR SHOULDER RT MIN 2V CLINICAL INDICATION: right proximal humerus fracture COMPARISON: CR SHOU3L [id number] from 01/01/2017 CR XR SHOULDER RT MIN 2V from 07/13/2021 CR XR SHOULDER RT MIN 2V from 08/06/2021 FINDINGS: There is a healing mildly displaced comminuted right humeral neck fracture with increasing callus formation laterally. There is mild anterior displacement of the distal fracture fragment. There are old fractures of the right 3rd and 4th ribs. There is a right subclavian MediPort catheter present with tip in the region of the SVC. No evidence of humeral head dislocation. IMPRESSION: Healing right humeral neck fracture as described above Dictated by: Pramod Camilo MD 08/27/2021 12:55 Pramod Camilo MD in [facility] 08/27/2021 12:55
== END ==
PROVIDERS: PCP Internal Medicine Adolescent Medicine; Visit Provider Orthopaedic Surgery
DX: S42.201A Unspecified fracture of upper end of right humerus, initial encounter for closed fracture (principal)
CPT/HCPCS: 73030

== ENCOUNTER 2021-08-29 12:17 | Outpatient (CLI) | payer MEDICARE, BC, SELFPAY ==
[2021-08-29 12:22] VITALS: BMI 24.1
[2021-08-29 12:45] LABS: Basophils % 0.7 % (0.1-2.0); Eosinophils # 0.1 K/mm3 (0.0-0.4); Eosinophils % 1.8 % (0.1-12.0); Hematocrit 39.4 % (37.0-47.0); Hemoglobin 13.9 g/dL (12.2-16.2); Lymphocytes # 1.6 K/mm3 (0.7-4.5); Lymphocytes % 24.5 % (10-50); Mean Corpuscular HGB Conc 35.3 g/dL (31.8-35.4); Mean Corpuscular Hemoglobin 30.8 pg (27.0-31.2); Mean Corpuscular Volume 87.1 fl (81-99); Mean Platelet Volume 7.6 fl (7.4-10.4); Monocytes # 0.4 K/mm3 (0.1-1.0); Monocytes % 6.8 % (1.7-9.3); Neutrophils # 4.3 K/mm3 (1.8-7.8); Neutrophils % 66.2 % (37.0-80.0); Platelet Count 155 K/mm3 (142-424); Red Blood Count 4.53 M/mm3 (4.20-5.40); Red Cell Distribution Width 13.6 % (11.5-17.5); White Blood Count 6.4 K/mm3 (4.8-10.8)
[2021-08-29 12:52] LABS: Chloride 106 mmol/L (98-107); Potassium 3.6 mmoL/L (3.5-5.1); Sodium 137 mmol/L (136-145)
[2021-08-29 12:54] LABS: Blood Urea Nitrogen 5 mg/dl (7-17); Creatinine Clearance Estimated 54 mL/min (50-200); Estimated Glomerular Filt Rate 122 ml/min (>60); GFR (African American) 148 ML/MIN (>60)
[2021-08-29 12:55] LABS: Alanine Aminotransferase 55 U/L (12-78); Albumin Level 3.7 g/dl (3.5-5.0); Albumin/Globulin Ratio 1.3 (1.1-1.8); Alkaline Phosphatase 247 U/L (38-126); Anion Gap 9.6 mEq/L (5-15); Aspartate Amino Transferase 75 U/L (14-36); Calcium 8.7 mg/dl (8.4-10.2); Carbon Dioxide 25 mmol/L (22.0-30.0); Globulin 2.9 g/dL (1.3-3.2); Glucose 110 mg/dl (74-100); Total Protein,Serum 6.6 g/dl (6.3-8.2)
== END 2021-08-29 12:35 | disposition home or self-care (01) ==
LOC: INF 12:18
PROVIDERS: PCP Internal Medicine Adolescent Medicine; Visit Provider Internal Medicine Medical Oncology
DX: Z45.2 Encounter for adjustment and management of vascular access device (principal); C25.9 Malignant neoplasm of pancreas, unspecified
CPT/HCPCS: 80053; 85025; J1642

== ENCOUNTER 2021-10-01 09:03 | Outpatient (CLI) | payer MEDICARE, BC, SELFPAY ==
[2021-10-01 09:06] VITALS: BMI 23.3
[2021-10-01 09:21] LABS: Basophils # 0.1 K/mm3 (0-0.2); Basophils % 0.8 % (0.1-2.0); Eosinophils # 0.2 K/mm3 (0.0-0.4); Eosinophils % 2.1 % (0.1-12.0); Hematocrit 44.2 % (37.0-47.0); Hemoglobin 14.4 g/dL (12.2-16.2); Lymphocytes # 1.8 K/mm3 (0.7-4.5); Lymphocytes % 22.4 % (10-50); Mean Corpuscular HGB Conc 32.5 g/dL (31.8-35.4); Mean Corpuscular Hemoglobin 29.8 pg (27.0-31.2); Mean Corpuscular Volume 91.6 fl (81-99); Mean Platelet Volume 7.7 fl (7.4-10.4); Monocytes # 0.4 K/mm3 (0.1-1.0); Monocytes % 5.5 % (1.7-9.3); Neutrophils # 5.6 K/mm3 (1.8-7.8); Neutrophils % 69.2 % (37.0-80.0); Platelet Count 206 K/mm3 (142-424); Red Blood Count 4.83 M/mm3 (4.20-5.40); Red Cell Distribution Width 13.9 % (11.5-17.5)
[2021-10-01 09:25] LABS: Chloride 103 mmol/L (98-107); Potassium 3.4 mmoL/L (3.5-5.1); Sodium 135 mmol/L (136-145)
[2021-10-01 09:27] LABS: Blood Urea Nitrogen 3 mg/dl (7-17); Creatinine Clearance Estimated 52 mL/min (50-200); Estimated Glomerular Filt Rate 122 ml/min (>60); GFR (African American) 148 ML/MIN (>60)
[2021-10-01 09:28] LABS: Alanine Aminotransferase 47 U/L (12-78); Albumin Level 3.7 g/dl (3.5-5.0); Albumin/Globulin Ratio 1.2 (1.1-1.8); Alkaline Phosphatase 322 U/L (38-126); Anion Gap 10.4 mEq/L (5-15); Aspartate Amino Transferase 65 U/L (14-36); Bilirubin,Total 2.8 mg/dl (0.2-1.3); Calcium 8.9 mg/dl (8.4-10.2); Carbon Dioxide 25 mmol/L (22.0-30.0); Globulin 3.2 g/dL (1.3-3.2); Glucose 133 mg/dl (74-100); Total Protein,Serum 6.9 g/dl (6.3-8.2)
--- NOTE | 2021-10-01 09:32 | CT_ITS ---
FINAL REPORT CLINICAL HISTORY: PANCREATIC CANCER COMPARISON: 07/25/2021 FINDINGS: Axial CT images of the chest were obtained with contrast. Coronal reformatted images were also obtained. This study was performed with techniques to keep radiation doses as low as reasonably achievable, (ALARA). Individualized dose reduction techniques using automated exposure control or adjustment of mA and/or KV according to the patient's size were employed. There is no evidence of mediastinal or hilar mass or adenopathy. No axillary mass or adenopathy is identified. There has been interval healing of a proximal right humeral fracture. There are numerous bilateral pulmonary nodules consistent with widespread pulmonary metastatic disease. Lateral right middle lobe nodule measures 7 mm, previously measured 5 mm. This is well-seen on image #46. Multiple other nodules have mildly increased in size. There are several sclerotic foci in the thoracic spine which are new consistent with bony metastatic disease. IMPRESSION: Slight interval worsening of widespread pulmonary metastatic disease. Worsening bony metastatic disease. Reviewed, Interpreted and Dictated by Lucas Nixon III, MD Transcribed by Desire Polo Authenticated by Lucas Nixon III, MD on 10/01/2021 12:41:55 PM [facility]
--- NOTE | 2021-10-01 09:32 | CT_ITS ---
FINAL REPORT CLINICAL HISTORY: PANCREATIC CANCER COMPARISON: 07/25/2021 FINDINGS: Technique: The patient was injected with intravenous contrast. Axial images through the abdomen and pelvis were performed. This study was performed with techniques to keep radiation doses as low as reasonably achievable (ALARA). Individualized dose reduction techniques using automated exposure control or adjustment of mA and/or kV according to the patient's size were employed. Abdomen: There is worsening fatty infiltration of the liver. There are areas of presumed sparing in the periphery. There is a low-attenuation lesion in left hepatic lobe measuring 15 mm, previously measured 15 mm. There is a smaller low-attenuation mass in the right liver dome which is stable. No new hepatic abnormality is identified. There is a small to moderate amount of ascites which is new. There is a soft tissue mass anterior to the aorta and upper abdomen measuring 3.4 x 2.3 cm, previously measured 2.3 x 1.0 cm. There is worsening gastrohepatic ligament adenopathy measuring up to 13 mm. There are worsening other areas of retroperitoneal soft tissue. The pancreatic duct is present. The spleen is unremarkable. The adrenals are normal. The kidneys enhance appropriately. The aorta is normal in caliber. Pelvis: The appendix is not identified. There is colonic wall thickening, may represent edema. There is sigmoid diverticulosis without evidence of diverticulitis. There is a small to moderate amount of pelvic ascites. The urinary bladder is unremarkable. Worsening sclerotic foci are identified. IMPRESSION: New, small to moderate ascites. Worsening soft tissue masses and adenopathy in the abdomen consistent with worsening neoplastic involvement. Worsening bony metastatic disease. Worsening colon wall thickening, may represent edema. Stable, nonspecific hepatic lesions. Reviewed, Interpreted and Dictated by Lucas Nixon III, MD Transcribed by Desire Polo Authenticated by Lucas Nixon III, MD on 10/01/2021 12:42:05 PM [facility]
== END 2021-10-01 10:00 | disposition home or self-care (01) ==
LOC: INF 09:04
PROVIDERS: PCP Internal Medicine Adolescent Medicine; Visit Provider Internal Medicine Medical Oncology
DX: C25.9 Malignant neoplasm of pancreas, unspecified; Z45.2 Encounter for adjustment and management of vascular access device
CPT/HCPCS: 71260; 74177; 80053; 85025; J1642; Q9967

== ENCOUNTER → 2021-10-24 15:43 | Outpatient (CLI) | payer MEDICARE, BC, SELFPAY ==
[2021-10-24 15:53] VITALS: BMI 24.3
[2021-10-24 16:06] LABS: Basophils % 0.3 % (0.1-2.0); Eosinophils # 0.1 K/mm3 (0.0-0.4); Hemoglobin 13.9 g/dL (12.2-16.2); Lymphocytes # 1.4 K/mm3 (0.7-4.5); Lymphocytes % 14.4 % (10-50); Mean Corpuscular HGB Conc 33.2 g/dL (31.8-35.4); Mean Corpuscular Hemoglobin 29.8 pg (27.0-31.2); Mean Corpuscular Volume 89.8 fl (81-99); Mean Platelet Volume 7.7 fl (7.4-10.4); Monocytes # 0.7 K/mm3 (0.1-1.0); Monocytes % 6.8 % (1.7-9.3); Neutrophils # 7.5 K/mm3 (1.8-7.8); Neutrophils % 77.5 % (37.0-80.0); Platelet Count 234 K/mm3 (142-424); Red Blood Count 4.68 M/mm3 (4.20-5.40); White Blood Count 9.7 K/mm3 (4.8-10.8)
[2021-10-24 16:29] LABS: Alanine Aminotransferase 43 U/L (12-78); Albumin Level 3.4 g/dl (3.5-5.0); Albumin/Globulin Ratio 1.1 (1.1-1.8); Alkaline Phosphatase 349 U/L (38-126); Anion Gap 9.1 mEq/L (5-15); Aspartate Amino Transferase 62 U/L (14-36); Bilirubin,Total 3.7 mg/dl (0.2-1.3); Blood Urea Nitrogen 4 mg/dl (7-17); Calcium 8.4 mg/dl (8.4-10.2); Carbon Dioxide 24 mmol/L (22.0-30.0); Chloride 101 mmol/L (98-107); Creatinine Clearance Estimated 55 mL/min (50-200); Estimated Glomerular Filt Rate 122 ml/min (>60); GFR (African American) 148 ML/MIN (>60); Globulin 3.1 g/dL (1.3-3.2); Glucose 134 mg/dl (74-100); Potassium 3.1 mmoL/L (3.5-5.1); Sodium 131 mmol/L (136-145); Total Protein,Serum 6.5 g/dl (6.3-8.2)
== END ==
PROVIDERS: PCP Internal Medicine Adolescent Medicine; Visit Provider Internal Medicine Medical Oncology
DX: C25.9 Malignant neoplasm of pancreas, unspecified (principal); Z45.2 Encounter for adjustment and management of vascular access device
CPT/HCPCS: 80053; 85025; J1642

== ENCOUNTER → 2021-11-04 13:43 | Outpatient (CLI) | payer MEDICARE, BC, SELFPAY | PROVIDERS: Visit Provider Internal Medicine Gastroenterology | DX: Z01.812 Encounter for preprocedural laboratory examination (principal); Z11.52 Encounter for screening for COVID-19; R93.3 Abnormal findings on diagnostic imaging of other parts of digestive tract | CPT/HCPCS: C9803; U0003; U0005 ==

== ENCOUNTER 2021-11-09 12:53 | Emergency (ER) | payer MEDICARE, BC, SELFPAY ==
[2021-11-09] VITALS (8 sets, daily range): BP systolic 110–157; BP diastolic 63–92; PULSE 78–142; RESP 15–20; TEMP 36.6–37.3; O2SAT 95–98; BMI 22.4
--- NOTE | 2021-11-09 13:09 | CT_ITS ---
PROCEDURE INFORMATION: Exam: CT Abdomen And Pelvis Without Contrast Exam date and time: 11/09/2021 1:09 PM Age: 71 years old Clinical indication: Bloating and other: Not able to eat; Additional info: . 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 Radiation optimization: All CT scans at this facility use at least one of these dose optimization techniques: automated exposure control; mA and/or kV adjustment per patient size (includes targeted exams where dose is matched to clinical indication); or iterative reconstruction. COMPARISON: CT ABDOMEN PELVIS W CON 07/25/2021 9:24 AM FINDINGS: Tubes, catheters and devices: Again noted is catheter in the pancreatic duct. Lungs: Increasing number of pulmonary nodules consistent with pulmonary metastasis. Liver: Heterogeneous liver with multiple nodules consistent with metastatic disease.. Gallbladder and bile ducts: Normal. No calcified stones. No ductal dilation. Pancreas: Increased soft tissue densities around the proximal pancreas. Increasing pancreatic malignancy cannot be ruled out Spleen: Normal. No splenomegaly. Adrenal glands: Normal. No mass. Kidneys and ureters: Normal. No hydronephrosis. Stomach and bowel: Diverticulosis of the rectosigmoid. No diverticulitis. Bowel wall thickening in the right colon may represent colitis in the appropriate clinical setting.. Appendix: No evidence of appendicitis. Intraperitoneal space: Moderate ascites in the abdomen and pelvis. Retroperitoneal space: Increased density in the retroperitoneum 2.6 by 4.1 cm. Series 3, image 55. Findings consistent with metastatic disease.. Vasculature: Unremarkable. No abdominal aortic aneurysm. Lymph nodes: Unremarkable. No enlarged lymph nodes. Urinary bladder: Unremarkable as visualized. Reproductive: Unremarkable as visualized. Bones/joints: 1.5 cm Sclerotic density in the left ilium. Series 3, image 87. Increasing size of sclerotic metastasis . Increasing compression of L4 compression fracture Soft tissues: Unremarkable. Other findings: Suboptimal study due to the lack of oral and intravenous contrast. IMPRESSION: 1. Increasing number of pulmonary nodules consistent with pulmonary metastasis. 2. 1.5 cm Sclerotic density in the left ilium. Series 3, image 87. Increasing size of sclerotic metastasis . 3. Moderate ascites in the abdomen and pelvis. 4. Heterogeneous liver with multiple nodules consistent with metastatic disease.. 5. Increased density in the retroperitoneum 2.6 by 4.1 cm. Series 3, image 55. Findings consistent with metastatic disease.. 6. Bowel wall thickening in the right colon may represent colitis in the appropriate clinical setting..
--- NOTE | 2021-11-09 13:19 | PC.NURSE ---
pt to CT scan
--- NOTE | 2021-11-09 13:28 | HMH.EDNVD ---
ED Disposition Clinical Impression: Gastroenteritis Pancreatic cancer Qualifiers: Pancreatic malignancy location: other parts of pancreas Qualified Code(s): C25.7 - Malignant neoplasm of other parts of pancreas Disposition: Home, Self-Care Condition on Discharge: Good Instructions: DI for Nausea -- Adult Prescriptions: Hydrocod/Acet 5/325 mg [[place] 5/325mg tablet] 1 tab PO Q6HP PRN #7 tab PRN Reason: Moderate To Severe Pain Transmission Status: Sent to [facility] Ondansetron [Zofran 4mg ODT] 4 mg PO BIDP PRN #10 tab PRN Reason: Nausea Transmission Status: Pending to [facility] Referrals: Eric Richmond MD [Primary Care Provider] - - Critical Care Critical Care Time: No Attestation: On 11/09/21, the high probability of a clinically significant, sudden or life threatening deterioration of the following system(s) required my full and direct attention, intervention and personal management. The time I documented below is in addition to time spent performing reported procedures but includes the following listed in this critical care notation. Medical Decision Making - Medical Records Medical records reviewed: Yes: I reviewed the patient's medical records. - Mark Inquiry Pt receiving controlled substance: No Vital Signs: 11/09/21 13:03 11/09/21 13:30 11/09/21 14:00 Temperature 99.2 F Temperature Source Oral Pulse Rate 101 H 100 H Pulse Rate [Radial] 142 H Respiratory Rate 20 16 19 Blood Pressure 126/80 116/63 Blood Pressure [Right Arm] 157/92 H Blood Pressure Mean 95 80 Blood Pressure Mean [Right Arm] 113 Blood Pressure Position [Right Arm] Sitting 02 Sat by Pulse Oximetry 98 98 95 Oxygen Delivery Method Room Air 11/09/21 14:32 11/09/21 15:00 Temperature Temperature Source Pulse Rate 100 H 100 H Pulse Rate [Radial] Respiratory Rate 20 17 Blood Pressure 143/88 H 125/82 Blood Pressure [Right Arm] Blood Pressure Mean 101 96 Blood Pressure Mean [Right Arm] Blood Pressure Position [Right Arm] 02 Sat by Pulse Oximetry 96 98 Oxygen Delivery Method - Lab Data Lab Results 11/09/21 13:45: WBC 15.9 H, RBC 4.70, Hgb 14.0, Hct 41.1, MCV 87.4, MCH 29.9, MCHC 34.2, RDW 13.6, Plt Count 199, MPV 7.0 L, Neut % (Auto) 91.7 H, Lymph % (Auto) 3.4 L, Preston % (Auto) 4.4, Eos % (Auto) 0.4, Baso % (Auto) 0.1, Neut # (Auto) 14.6 H, Lymph # (Auto) 0.5 L, Preston # (Auto) 0.7, Eos # (Auto) 0.1, Baso # (Auto) 0.0 11/09/21 13:45: Sodium 126 L, Potassium 3.4 L, Chloride 96 L, Carbon Dioxide 23, Anion Gap 10.4, BUN 5 L, Creatinine 0.50 L, Estimated Creat Clear 51, Estimated GFR 122, Est GFR ( Amer) 148, Glucose 110 H, Calcium 7.9 L, Total Bilirubin 4.9 H, AST 117 H, ALT 64, Alkaline Phosphatase 503 H, Total Protein 6.5, Albumin 3.2 L, Globulin 3.3 H, Albumin/Globulin Ratio 1.0 L, Lipase 33 Result diagrams: 11/09/21 13:45 11/09/21 13:45 Orders (Tests/Meds): ED MEDICATIONS Discontinued Medications Generic Name Dose Route Start Last Admin Trade Name Giovany PRN Reason Stop Dose Admin Sodium Chloride 1,000 mls @ 999 mls/hr 11/09/21 13:15 11/09/21 13:50 Sod Chlor 0.9% 1000ml Bag IV 11/09/21 14:15 999 mls/hr .Q1H1M ALCIRA Administration Sodium Chloride 1,000 mls @ 999 mls/hr 11/09/21 13:15 Sod Chlor 0.9% 1000ml Bag IV 11/09/21 14:15 .Q1H1M ALCIRA Morphine Sulfate 4 mg 11/09/21 13:09 11/09/21 13:50 Morphine 4mg/Ml Syringe IV 11/09/21 13:10 4 mg ONCE ONE Administration Ondansetron HCl 4 mg 11/09/21 13:09 11/09/21 13:50 Ondansetron 4mg/2ml Vial IV 11/09/21 13:10 4 mg ONCE ONE Administration ORDERS Category Date Time Status CBC w/Auto Diff [Complete Blood Count Auto Diff] Stat Lab 11/09/21 13:45 Results Urinalysis and Microscopic Stat Lab 11/09/21 14:33 Received - CT Data CT Scan: Abdomen, Pelvis Time Received: 15:[address] Reviewed: Yes: I have reviewed the patient's CT results, I have viewed t
--- NOTE | 2021-11-09 14:00 | PC.NURSE ---
PT UPDATED ON PLAN OF CARE
[2021-11-09 14:01] LABS: Basophils % 0.1 % (0.1-2.0); Eosinophils # 0.1 K/mm3 (0.0-0.4); Eosinophils % 0.4 % (0.1-12.0); Hematocrit 41.1 % (37.0-47.0); Lymphocytes # 0.5 K/mm3 (0.7-4.5); Lymphocytes % 3.4 % (10-50); Mean Corpuscular HGB Conc 34.2 g/dL (31.8-35.4); Mean Corpuscular Hemoglobin 29.9 pg (27.0-31.2); Mean Corpuscular Volume 87.4 fl (81-99); Monocytes # 0.7 K/mm3 (0.1-1.0); Monocytes % 4.4 % (1.7-9.3); Neutrophils # 14.6 K/mm3 (1.8-7.8); Neutrophils % 91.7 % (37.0-80.0); Platelet Count 199 K/mm3 (142-424); Red Cell Distribution Width 13.6 % (11.5-17.5); White Blood Count 15.9 K/mm3 (4.8-10.8)
[2021-11-09 14:10] LABS: Chloride 96 mmol/L (98-107); MANUAL DIFFERENTIAL MANUAL DIFFERENTIAL (MANUAL DIFF)
[2021-11-09 14:11] LABS: Potassium 3.4 mmoL/L (3.5-5.1); Sodium 126 mmol/L (136-145)
[2021-11-09 14:13] LABS: Alanine Aminotransferase 64 U/L (12-78); Alkaline Phosphatase 503 U/L (38-126); Anion Gap 10.4 mEq/L (5-15); Aspartate Amino Transferase 117 U/L (14-36); Bilirubin,Total 4.9 mg/dl (0.2-1.3); Blood Urea Nitrogen 5 mg/dl (7-17); Carbon Dioxide 23 mmol/L (22.0-30.0); Creatinine Clearance Estimated 51 mL/min (50-200); Estimated Glomerular Filt Rate 122 ml/min (>60); GFR (African American) 148 ML/MIN (>60); Lipase 33 U/L (23-300)
[2021-11-09 14:14] LABS: Albumin Level 3.2 g/dl (3.5-5.0); Calcium 7.9 mg/dl (8.4-10.2); Globulin 3.3 g/dL (1.3-3.2); Glucose 110 mg/dl (74-100); Total Protein,Serum 6.5 g/dl (6.3-8.2)
--- NOTE | 2021-11-09 14:38 | PC.NURSE ---
helped pt to bedside commode; Pt in bed and comfortable
[2021-11-09 15:03] LABS: Microscopic, Urine URINE MICROSCOPIC (MICROSCOPIC)
[2021-11-09 15:08] LABS: Appearance,Urine CLEAR (Clear); Blood, Urine Negative (Negative); Color,Urine AMBER (Yellow); Glucose,Urine (UA) Negative (Negative); Ketones,Urine TRACE (Negative); Leukocyte Esterase,Urine TRACE (Negative); Nitrate,Urine POSITIVE (Negative); PH,Urine 5.5 (5.0-8.5); Protein,Urine 2+ (Negative); Specific Gravity, Urine >= 1.030 (1.005-1.030); Urobilinogen,Urine 0.2 EU/dl (0.2)
--- NOTE | 2021-11-09 15:10 | PC.NURSE ---
PT C/O LOWER BACK PAIN
[2021-11-09 15:12] LABS: Bilirubin,Urine 2+ (Negative)
[2021-11-09 15:18] LABS: Lymphocytes % 4 % (10-50); Monocytes % 4 % (2-9); Neutrophils % 92 % (42-76); Platelet Estimate Normal; Total Cells Counted 100
[2021-11-09 15:18] LABS: Bacteria,Urine 2+ /lpf; Calcium Oxalate Crystals,Urine 2+ /lpf; Mucus,Urine 3+ /lpf
--- NOTE | 2021-11-09 15:45 | PC.NURSE ---
PORT DE-ACCESSED
== END 2021-11-09 17:45 | disposition home or self-care (01) ==
PROVIDERS: Emergency Provider Emergency Medicine; PCP Internal Medicine Adolescent Medicine
DX: K52.9 Noninfective gastroenteritis and colitis, unspecified (principal); C25.7 Malignant neoplasm of other parts of pancreas; F41.9 Anxiety disorder, unspecified; Z88.0 Allergy status to penicillin
CPT/HCPCS: 74176; 80053; 81001; 83690; 85007; 85025; 87086; 96365; 96375; 99283; 99284; J1642; J2405

== ENCOUNTER → 2021-11-11 08:22 | Outpatient (CLI) | payer MEDICARE, BC, SELFPAY | PROVIDERS: Visit Provider Internal Medicine Gastroenterology | DX: Z45.2 Encounter for adjustment and management of vascular access device (principal) ==

== ENCOUNTER 2021-11-23 12:15 | Emergency (ER) | payer MEDICARE, BC, SELFPAY ==
[2021-11-23 12:16] VITALS: BP 166/92; PULSE 121; RESP 22; TEMP 36.6; O2SAT 97; BMI 21.6
--- NOTE | 2021-11-23 12:22 | PC.NURSE ---
warm blanket given to the patient
--- NOTE | 2021-11-23 12:29 | HMH.EDGENADL ---
ED Disposition Clinical Impression: Nausea, Hyponatremia Pancreatic cancer Qualifiers: Pancreatic malignancy location: unspecified Qualified Code(s): C25.9 - Malignant neoplasm of pancreas, unspecified Disposition: Home, Self-Care Condition on Discharge: Fair Additional Instructions: Take Percocet as needed for more severe pain. Do not take Percocet and Benton simultaneously. Continue Zofran as needed for nausea. Follow-up with primary care provider on Thursday for further care. Additional instructions for CONTROLLED SUBSTANCES: You have been prescribed a medication that is a controlled substance. Controlled substances include pain medications known as opiates and sedative nerve medications known as benzodiazepines. Tramadol, fioricet, and gabapentin are also controlled substances. Some common opiates include: Codeine (such as Tylenol #3) Hydrocodone (Vicodin, Lortab, Lorcet, Benton) Oxycodone (Percocet, Percodan, Oxycodone, Oxy IR) Some common benzodiazepines include: Diazepam (Valium) Lorazepam (Ativan) Alprazolam (Xanax) Clonazepam (Klonopin) Oxazepam (Serax) All of these controlled substances are highly addictive and frequently abused. Misuse can and frequently does lead to addiction as well as overdose and . Medication should be stored in a locked cabinet or other secure storage unit. Do not store the medication in a motor vehicle. Short term supplies, 3 days or less, are prescribed because of the highly addictive nature of the medication. Any of the controlled substance medication NOT taken should be disposed of properly and NOT SAVED. The recommended method of disposing of unused medications is: Place the medicines in a sealable plastic bag. If the medicine is a solid, crush it or add water to dissolve it. Add something undesirable (cat litter, coffee grounds, etc.) Dispose of sealed bag in household trash Do not flush or pour unused medicines down a sink or drain. Controlled substances should not be shared, given away or sold. Because of the addictive nature and frequent abuse, these medications are sometimes stolen. These medications should be kept in a safe place where they cannot be stolen. Do not keep them in your car or purse. Lost or stolen prescriptions for controlled substances WILL NOT BE REFILLED in this emergency department, regardless of whether a police report was filed. Prescriptions: Oxycodone HCl/Acetaminophen [Percocet 5/325mg tablet] 1 tab PO Q6HP PRN #20 tablet PRN Reason: Moderate To Severe Pain Transmission Status: Sent to [id number] Referrals: Eric Richmond MD [Primary Care Provider] - - Critical Care Critical Care Time: No Attestation: On , the high probability of a clinically significant, sudden or life threatening deterioration of the following system(s) required my full and direct attention, intervention and personal management. The time I documented below is in addition to time spent performing reported procedures but includes the following listed in this critical care notation. Medical Decision Making - Medical Records Medical records reviewed: Yes: I reviewed the patient's medical records. MR Comment: Reviewed most recent oncology clinic note 11/14/2021. Reviewed emergency department note 11/09/2021. - Mark Inquiry Pt receiving controlled substance: Yes Mark was queried for this patient: Yes Risks and benefits of using a controlled substance: were discussed with pt by me Vital Signs: 11/23/21 12:16 11/23/21 13:30 Temperature 98 F Temperature Source Oral Pulse Rate 92 H Pulse Rate [Radial] 121 H Respiratory Rate 22 16 Blood Pressure 134/77 Blood Pressure [Right Radial Artery] 166/92 H Blood Pressure Mean 94 Blood Pressure Mean [Right Radial Artery] 116 Blood Pressure Position [Right Radial Artery] Sitting 02 Sat by Pulse Oximetry 97 94 L Oxygen Delivery Method Room Air - Lab Data Lab Results
[2021-11-23 13:03] LABS: Basophils # 0.2 K/mm3 (0-0.2); Basophils % 1.6 % (0.1-2.0); Eosinophils # 0.1 K/mm3 (0.0-0.4); Eosinophils % 0.6 % (0.1-12.0); Hematocrit 38.8 % (37.0-47.0); Hemoglobin 12.8 g/dL (12.2-16.2); Lymphocytes # 0.8 K/mm3 (0.7-4.5); Mean Corpuscular Hemoglobin 29.9 pg (27.0-31.2); Mean Corpuscular Volume 90.7 fl (81-99); Mean Platelet Volume 7.4 fl (7.4-10.4); Monocytes # 0.6 K/mm3 (0.1-1.0); Monocytes % 6.3 % (1.7-9.3); Neutrophils # 8.4 K/mm3 (1.8-7.8); Neutrophils % 83.4 % (37.0-80.0); Platelet Count 215 K/mm3 (142-424); Red Blood Count 4.28 M/mm3 (4.20-5.40); Red Cell Distribution Width 13.8 % (11.5-17.5); White Blood Count 10.1 K/mm3 (4.8-10.8)
[2021-11-23 13:06] LABS: Chloride 94 mmol/L (98-107); Sodium 124 mmol/L (136-145)
[2021-11-23 13:07] LABS: Potassium 4.1 mmoL/L (3.5-5.1)
[2021-11-23 13:09] LABS: Alanine Aminotransferase 53 U/L (12-78); Alkaline Phosphatase 614 U/L (38-126); Aspartate Amino Transferase 67 U/L (14-36); Bilirubin,Total 2.3 mg/dl (0.2-1.3); Blood Urea Nitrogen 5 mg/dl (7-17); Creatinine Clearance Estimated 49 mL/min (50-200); Estimated Glomerular Filt Rate 158 ml/min (>60); GFR (African American) 191 ML/MIN (>60)
[2021-11-23 13:10] LABS: Albumin Level 3.1 g/dl (3.5-5.0); Anion Gap 10.1 mEq/L (5-15); Calcium 7.9 mg/dl (8.4-10.2); Carbon Dioxide 24 mmol/L (22.0-30.0); Globulin 3.2 g/dL (1.3-3.2); Glucose 109 mg/dl (74-100); Total Protein,Serum 6.3 g/dl (6.3-8.2)
[2021-11-23 13:30] VITALS: BP 134/77; PULSE 92; RESP 16; O2SAT 94
--- NOTE | 2021-11-23 13:32 | PC.NURSE ---
PT STATES SOME IMPROVEMENT IN SYMPTOMS WITH MEDS GIVEN
--- NOTE | 2021-11-23 14:45 | PC.NURSE ---
RN and TECH in room mediating ot on hospice because of her concerns
--- NOTE | 2021-11-23 14:50 | PC.NURSE ---
HAD A LONG CONVERSATION WITH PT REGARDING HOSPICE CARE. PT VERY TEARFUL AND UNSURE OF WHAT HOSPICE WOULD PROVIDE. TOLD PT TO CALL DR GUERRERO THURSDAY AND SPEAK WITH HIM REGARDING HOSPICE CARE AND IF HE THINKS SHE NEEDS A REFERRAL TO THEIR CARE.
[2021-11-23 14:54] VITALS: BP 155/78; PULSE 78; RESP 16; TEMP 36.6; O2SAT 98
== END 2021-11-23 14:58 | disposition home or self-care (01) ==
PROVIDERS: Emergency Provider Emergency Medicine; PCP Internal Medicine Adolescent Medicine
DX: C25.9 Malignant neoplasm of pancreas, unspecified (principal); R11.0 Nausea; E87.1 Hypo-osmolality and hyponatremia; M54.50 Low back pain, unspecified; F41.9 Anxiety disorder, unspecified; Z79.899 Other long term (current) drug therapy; Z88.0 Allergy status to penicillin; Z86.14 Personal history of Methicillin resistant Staphylococcus aureus infection; Z92.21 Personal history of antineoplastic chemotherapy
CPT/HCPCS: 80053; 85025; 96361; 96365; 96374; 96375; 96376; 99284; J1642; J2405

== ENCOUNTER 2021-11-24 17:39 | Observation (INO) | payer MEDICARE, BC, SELFPAY ==
[2021-11-24] VITALS (10 sets, daily range): BP systolic 102–149; BP diastolic 53–72; PULSE 110–139; RESP 18; TEMP 36.9–37.2; O2SAT 96–98; BMI 21.6; BMI 24.3
[2021-11-24 19:40] LABS: Basophils # 0.1 K/mm3 (0-0.2); Basophils % 0.2 % (0.1-2.0); Eosinophils # 0.2 K/mm3 (0.0-0.4); Eosinophils % 0.5 % (0.1-12.0); Hemoglobin 12.8 g/dL (12.2-16.2); Lymphocytes # 0.5 K/mm3 (0.7-4.5); Lymphocytes % 1.8 % (10-50); Mean Corpuscular HGB Conc 33.7 g/dL (31.8-35.4); Mean Corpuscular Hemoglobin 30.3 pg (27.0-31.2); Mean Corpuscular Volume 89.9 fl (81-99); Monocytes # 0.8 K/mm3 (0.1-1.0); Monocytes % 2.7 % (1.7-9.3); Neutrophils # 29.2 K/mm3 (1.8-7.8); Neutrophils % 94.8 % (37.0-80.0); Platelet Count 232 K/mm3 (142-424); Red Blood Count 4.23 M/mm3 (4.20-5.40); Red Cell Distribution Width 13.9 % (11.5-17.5); White Blood Count 30.9 K/mm3 (4.8-10.8)
[2021-11-24 19:43] LABS: MANUAL DIFFERENTIAL MANUAL DIFFERENTIAL (MANUAL DIFF)
[2021-11-24 19:44] LABS: Chloride 91 mmol/L (98-107); Potassium 3.8 mmoL/L (3.5-5.1); Sodium 119 mmol/L (136-145)
[2021-11-24 19:47] LABS: Alanine Aminotransferase 57 U/L (12-78); Albumin Level 3.1 g/dl (3.5-5.0); Albumin/Globulin Ratio 0.9 (1.1-1.8); Alkaline Phosphatase 607 U/L (38-126); Anion Gap 9.8 mEq/L (5-15); Aspartate Amino Transferase 71 U/L (14-36); Bilirubin,Total 3.4 mg/dl (0.2-1.3); Blood Urea Nitrogen 6 mg/dl (7-17); Calcium 7.7 mg/dl (8.4-10.2); Carbon Dioxide 22 mmol/L (22.0-30.0); Creatinine Clearance Estimated 49 mL/min (50-200); Estimated Glomerular Filt Rate 122 ml/min (>60); GFR (African American) 148 ML/MIN (>60); Globulin 3.3 g/dL (1.3-3.2); Glucose 109 mg/dl (74-100); Total Protein,Serum 6.4 g/dl (6.3-8.2)
[2021-11-24 19:50] LABS: Lymphocytes % 3 % (10-50); Monocytes % 2 % (2-9); Neutrophils % 84 % (42-76); Platelet Estimate Normal; RBC Morphology Normal; Total Cells Counted 100
--- NOTE | 2021-11-24 19:51 | XR_ITS ---
PROCEDURE INFORMATION: Exam: XR Chest Exam date and time: 11/24/2021 7:51 PM Age: 71 years old Clinical indication: Other: Nausea per patient. ; Additional info: Sirs+ TECHNIQUE: Imaging protocol: XR of the chest. Views: 1 view. COMPARISON: CT CHEST W CON 10/01/2021 9:40 AM FINDINGS: Tubes, catheters and devices: Right-sided subclavian Port-A-Cath tip in the proximal SVC. Lungs: Coarse interstitial lung markings likely chronic and there is superimposed interstitial pneumonia. Granulomatous changes. Pleural spaces: Unremarkable. No pleural effusion. No pneumothorax. Heart/Mediastinum: Unremarkable. No cardiomegaly. Bones/joints: Chronic bilateral humerus neck fractures. IMPRESSION: Findings concerning for moderate interstitial pneumonia.
--- NOTE | 2021-11-24 20:03 | PC.NURSE ---
@1925 PT HAD APPRX 300 ML OF ORANGE EMESIS. PT REPORTS THAT SHE HAS HAD ORANGE JUICE PRIOR TO ARRIVAL IN ED. PT CLEANED UP AND LINENS CHANGED. MD POSADA. M.
--- NOTE | 2021-11-24 20:08 | CT_ITS ---
PROCEDURE INFORMATION: Exam: CT Abdomen And Pelvis With Contrast Exam date and time: 11/24/2021 8:08 PM Age: 71 years old Clinical indication: Abdominal pain; Generalized; Additional info: Abd pain, new leukocytosis TECHNIQUE: Imaging protocol: Computed tomography of the abdomen and pelvis with contrast. Radiation optimization: All CT scans at this facility use at least one of these dose optimization techniques: automated exposure control; mA and/or kV adjustment per patient size (includes targeted exams where dose is matched to clinical indication); or iterative reconstruction. Contrast material: ISOVUE; Contrast volume: 75 ml; Contrast route: IV; COMPARISON: CT ABDOMEN PELVIS WO CON 11/09/2021 1:19 PM FINDINGS: Tubes, catheters and devices: Pancreatic duct tubing as before. Lungs: In the lung bases there are innumerable pulmonary nodules measuring 1 cm or less unchanged from the previous exam. Small bilateral pleural effusions with associated compressive atelectasis. Liver: Heterogeneous liver parenchyma with pneumobilia. Multiple ill-defined hypodense areas involving the right lobe of the liver concerning for malignancy largest 1.7 cm. Gallbladder and bile ducts: Cholecystectomy. Pancreas: Proximal pancreas is not well seen. Spleen: Normal. No splenomegaly. Adrenal glands: Normal. No mass. Kidneys and ureters: Normal. No hydronephrosis. Stomach and bowel: Diverticulosis in the sigmoid without diverticulitis. Wall thickening involving the cecum and ascending colon and transverse colon concerning for colitis. Appendix: Normal appendix. Intraperitoneal space: Moderate volume abdominopelvic ascites. Retroperitoneal space: Heterogeneous retroperitoneal mass anteriorly about the aortocaval region measuring 4.7 by 2.9 cm. Previously this measured 3.4 x 2.3 cm. Vasculature: Unremarkable. No abdominal aortic aneurysm. Lymph nodes: Unremarkable. No enlarged lymph nodes. Urinary bladder: Unremarkable as visualized. Reproductive: Unremarkable as visualized. Bones/joints: Unremarkable. No acute fracture. Soft tissues: Sclerotic lesion in the left ilium as before. Chronic inferior endplate fracture of L4. IMPRESSION: 1. No change in innumerable subcentimeter pulmonary nodules in the lung bases concerning for metastatic disease. 2. Small bilateral effusions with associated atelectasis. 3. Heterogeneous liver with multiple ill-defined masses concerning for malignancy. Pneumobilia. 4. Colitis. 5. Slight increase size of hypodense mass involving the retroperitoneum anteriorly concerning for malignancy. 6. Moderate amount of abdominopelvic ascites.
[2021-11-24 20:29] LABS: Lactic Acid 1.7 mmol/L (0.7-2.1)
--- NOTE | 2021-11-24 21:16 | PC.NURSE ---
spoke with cristóbal with [employer] who put in 1gm vanc consult and cefepime and flagyl confirmation.
[2021-11-24 21:19] LABS: Microscopic, Urine URINE MICROSCOPIC (MICROSCOPIC)
[2021-11-24 21:20] LABS: Appearance,Urine CLEAR (Clear); Bilirubin,Urine Negative (Negative); Blood, Urine Negative (Negative); Color,Urine DK YELLOW (Yellow); Glucose,Urine (UA) Negative (Negative); Ketones,Urine Negative (Negative); Leukocyte Esterase,Urine 1+ (Negative); Nitrate,Urine Negative (Negative); Protein,Urine 1+ (Negative); Urobilinogen,Urine 0.2 EU/dl (0.2)
[2021-11-24 21:21] LABS: Coronavirus 19, PCR Not Detected (NotDetected); Influenza A, PCR Not Detected (NotDetected); Influenza B, PCR Not Detected (NotDetected)
--- NOTE | 2021-11-24 21:24 | PC.NURSE ---
food checkers and cashiers supervisor notified of pt admission and bed assignment needed
[2021-11-24 21:28] LABS: Bacteria,Urine 1+ /lpf
--- NOTE | 2021-11-24 21:28 | HMH.EDGENADL ---
ED Disposition Clinical Impression: SIRS (systemic inflammatory response syndrome) Disposition: Admitted As Inpatient Condition on Discharge: Good - Critical Care Critical Care Time: No Attestation: On 11/24/21, the high probability of a clinically significant, sudden or life threatening deterioration of the following system(s) required my full and direct attention, intervention and personal management. The time I documented below is in addition to time spent performing reported procedures but includes the following listed in this critical care notation. Medical Decision Making - Mark Inquiry Pt receiving controlled substance: No Vital Signs: 11/24/21 17:40 11/24/21 18:00 Temperature 98.5 F Temperature Source Oral Pulse Rate [Radial] 139 H Respiratory Rate 18 Blood Pressure 128/68 Blood Pressure [Right Arm] 149/68 H Blood Pressure Mean [Right Arm] 95 Blood Pressure Position [Right Arm] Sitting 02 Sat by Pulse Oximetry 98 96 Oxygen Delivery Method Room Air Room Air - Lab Data Lab Results 11/24/21 19:32: WBC 30.9 H* D, RBC 4.23, Hgb 12.8, Hct 38.0, MCV 89.9, MCH 30.3, MCHC 33.7, RDW 13.9, Plt Count 232, MPV 8.0, Neut % (Auto) 94.8 H, Lymph % (Auto) 1.8 L, [place] % (Auto) 2.7, Eos % (Auto) 0.5, Baso % (Auto) 0.2, Neut # (Auto) 29.2 H, Lymph # (Auto) 0.5 L, [place] # (Auto) 0.8, Eos # (Auto) 0.2, Baso # (Auto) 0.1, Total Counted 100, Neutrophils % (Manual) 84 H, Band Neutrophils % 11.0 H, Lymphocytes % (Manual) 3 L, Monocytes % (Manual) 2, Platelet Estimate Normal, RBC Morphology Normal 11/24/21 19:32: Sodium 119 L, Potassium 3.8, Chloride 91 L, Carbon Dioxide 22, Anion Gap 9.8, BUN 6 L, Creatinine 0.50 L D, Estimated Creat Clear 49, Estimated GFR 122, Est GFR ( Amer) 148 D, Glucose 109 H, Calcium 7.7 L, Total Bilirubin 3.4 H, AST 71 H, ALT 57, Alkaline Phosphatase 607 H, Total Protein 6.4, Albumin 3.1 L, Globulin 3.3 H, Albumin/Globulin Ratio 0.9 L 11/24/21 20:16: Lactate 1.7 11/24/21 21:14: Urine Color Dk yellow, Urine Appearance Clear, Urine pH 6.0, Ur Specific [place] 1.010, Urine Protein 1+, Urine Glucose (UA) Negative, Urine Ketones Negative, Urine Blood Negative, Urine Nitrate Negative, Urine Bilirubin Negative, Urine Urobilinogen 0.2, Ur Leukocyte Esterase 1+ A Result diagrams: 11/24/21 19:32 11/24/21 19:32 Orders (Tests/Meds): ED MEDICATIONS Generic Name Dose Route Start Last Admin Trade Name Freq PRN Reason Stop Dose Admin Cefepime HCl 2 gm/ Sodium 100 mls @ 200 mls/hr 11/24/21 21:15 Chloride IV 12/08/21 21:14 Q8H ALCIRA Metronidazole 500 mg in 100 mls @ 100 mls/hr 11/24/21 21:15 Flagyl 500mg/100ml Ivpb IV 12/08/21 21:14 Q8H ALCIRA Vancomycin HCl 1,000 mg/ 250 mls @ 125 mls/hr 11/24/21 21:30 Sodium Chloride IV 11/24/21 23:29 ONCE ONE Miscellaneous 1 each 11/24/21 21:00 Vancomycin Consult Request * 12/24/21 20:59 CONSULT PHARMACY [facility] Miscellaneous 1 each 11/24/21 21:15 Vancomycin Consult Request * 12/24/21 21:14 CONSULT PHARMACY [facility] Discontinued Medications Generic Name Dose Route Start Last Admin Trade Name Freq PRN Reason Stop Dose Admin Diphenhydramine HCl 25 mg 11/24/21 18:22 11/24/21 19:41 Diphenhydramine 50mg/Ml Vial IV 11/24/21 18:23 25 mg ONCE ONE Administration Lactated Ringer's 1,000 mls @ 999 mls/hr 11/24/21 18:30 11/24/21 19:41 Lactated Ringer's 1000 Ml Bag IV 11/24/21 19:30 999 mls/hr .Q1H1M ALCIRA Administration Iopamidol 75 ml 11/24/21 21:16 11/24/21 21:17 Iopamidol-370 (76%);100ml Bottle IV 11/24/21 21:17 75 ml ONCE ONE Administration Morphine Sulfate 4 mg 11/24/21 19:08 11/24/21 19:41 Morphine 4mg/Ml Syringe IV 11/24/21 19:09 4 mg ONCE ONE Administration Prochlorperazine Edisylate 10 mg 11/24/21 18:22 11/24/21 19:41 Prochlorperazine 10mg/2ml Vial IV 11/24/21 18:23 10 mg ONCE ONE Administration Sodium Chloride 10 ml 11/24/21 21:16 11/24/21
[2021-11-24 21:29] LABS: Calcium Oxalate Crystals,Urine 1+ /lpf
--- NOTE | 2021-11-24 21:39 | PC.NURSE ---
PT REPORTS THAT PAIN HAS IMPROVED.
--- NOTE | 2021-11-24 22:25 | PC.NURSE ---
PT TO FLOOR VIA WHEELCHAIR. NO COMPLAINTS VOICED. NO ACUTE DISTRESS NOTED.
--- NOTE | 2021-11-24 22:31 | PC.NURSE ---
PT ARRIVED TO FLOOR VIA W/C FROM ED W/STAFF @ 1431
[2021-11-25] VITALS (7 sets, daily range): BP systolic 109–149; BP diastolic 64–83; PULSE 101–130; RESP 16–20; TEMP 36.3–37.9; O2SAT 92–99; BMI 24.2
[2021-11-25 06:03] LABS: Basophils % 0.2 % (0.1-2.0); Eosinophils # 0.3 K/mm3 (0.0-0.4); Eosinophils % 1.1 % (0.1-12.0); Hematocrit 33.5 % (37.0-47.0); Lymphocytes # 0.6 K/mm3 (0.7-4.5); Lymphocytes % 2.5 % (10-50); Mean Corpuscular HGB Conc 33.5 g/dL (31.8-35.4); Mean Corpuscular Hemoglobin 30.3 pg (27.0-31.2); Mean Corpuscular Volume 90.5 fl (81-99); Mean Platelet Volume 8.5 fl (7.4-10.4); Monocytes # 0.8 K/mm3 (0.1-1.0); Monocytes % 3.6 % (1.7-9.3); Neutrophils # 20.7 K/mm3 (1.8-7.8); Neutrophils % 92.6 % (37.0-80.0); Platelet Count 200 K/mm3 (142-424); Red Blood Count 3.71 M/mm3 (4.20-5.40); Red Cell Distribution Width 13.9 % (11.5-17.5)
[2021-11-25 06:05] LABS: Hemoglobin 11.2 g/dL (12.2-16.2); White Blood Count 22.4 K/mm3 (4.8-10.8)
[2021-11-25 06:07] LABS: MANUAL DIFFERENTIAL MANUAL DIFFERENTIAL (MANUAL DIFF)
[2021-11-25 06:14] LABS: Anion Gap 7.8 mEq/L (5-15); Blood Urea Nitrogen 7 mg/dl (7-17); Calcium 7.7 mg/dl (8.4-10.2); Carbon Dioxide 23 mmol/L (22.0-30.0); Chloride 98 mmol/L (98-107); Creatinine Clearance Estimated 55 mL/min (50-200); Estimated Glomerular Filt Rate 158 ml/min (>60); GFR (African American) 191 ML/MIN (>60); Glucose 90 mg/dl (74-100); Potassium 3.8 mmoL/L (3.5-5.1); Sodium 125 mmol/L (136-145)
--- NOTE | 2021-11-25 07:17 | HMH.PHAINT ---
Home med rec complete
--- NOTE | 2021-11-25 07:23 | HMH.PHAVTE ---
[facility] Pharmacy VTE Monitoring - Patient Demographics Admission date: 11/24/21 Report Date: 11/25/21 Time: 07:23 Allergies/Adverse Reactions: Patient Allergies Penicillins [PENICILLINS] Allergy (Intermediate, Verified 11/14/21 14:29) Height: 1.65 m Weight: 66.043 kg Patient Problems: Current Active Problems SIRS (systemic inflammatory response syndrome) (Acute) - VTE Risk Labs: VTE Related Lab Results Hgb 11.2 g/dL (12.2-16.2) L D 11/25/21 05:40 Hct 33.5 % (37.0-47.0) L 11/25/21 05:40 Plt Count 200 K/mm3 (142-424) 11/25/21 05:40 BUN 7 mg/dl (7-17) 11/25/21 05:40 Creatinine 0.40 mg/dl (0.52-1.04) L 11/25/21 05:40 Estimated Creat Clear 55 mL/min (50-200) 11/25/21 05:40 Was VTE Risk Assessment Performed: Yes VTE Score: 3 VTE Risk Level: Low Risk - Prophylaxis VTE Prophylaxis Ordered?: Yes Types of VTE Prophylaxis: TEDS Knee High Location of Applied Device: Bilateral Lower Extremeties
--- NOTE | 2021-11-25 08:05 | HMH.PHACONS ---
- Pharmacy Consult Date: 11/25/21 Time: 08:05 Referring provider: DR GUERRERO Reason for Consult:: VANCOMYCIN DOSING CONSULT Allergies and ADEs:: Allergies Allergy/AdvReac Type Severity Reaction Status Date / Time Penicillins [PENICILLINS] Allergy Intermediate Verified 11/14/21 14:29 Home Medications:: Home Medications Medication Instructions Recorded Confirmed Type yoyxbx-aocndnsl-dbhxtec 1 cap PO BID 01/31/21 11/24/21 History 36,000-114,000-180,000 unit capsule,delay rel Ondansetron [Zofran 4mg ODT] 4 mg PO BIDP PRN #10 tab 11/09/21 11/24/21 Rx Oxycodone HCl/Acetaminophen 1 tab PO Q6HP PRN #20 tab 11/23/21 11/24/21 Rx [Percocet 5/325mg tablet] Height: 1.65 m Weight: 66.043 kg Laboratory Results:: Laboratory Results - last 24 hr 11/24/21 19:32: WBC 30.9 H* D, RBC 4.23, Hgb 12.8, Hct 38.0, MCV 89.9, MCH 30.3, MCHC 33.7, RDW 13.9, Plt Count 232, MPV 8.0, Neut % (Auto) 94.8 H, Lymph % (Auto) 1.8 L, [place] % (Auto) 2.7, Eos % (Auto) 0.5, Baso % (Auto) 0.2, Neut # (Auto) 29.2 H, Lymph # (Auto) 0.5 L, [place] # (Auto) 0.8, Eos # (Auto) 0.2, Baso # (Auto) 0.1, Total Counted 100, Neutrophils % (Manual) 84 H, Band Neutrophils % 11.0 H, Lymphocytes % (Manual) 3 L, Monocytes % (Manual) 2, Platelet Estimate Normal, RBC Morphology Normal 11/24/21 19:32: Sodium 119 L, Potassium 3.8, Chloride 91 L, Carbon Dioxide 22, Anion Gap 9.8, BUN 6 L, Creatinine 0.50 L D, Estimated Creat Clear 49, Estimated GFR 122, Est GFR ( Amer) 148 D, Glucose 109 H, Calcium 7.7 L, Total Bilirubin 3.4 H, AST 71 H, ALT 57, Alkaline Phosphatase 607 H, Total Protein 6.4, Albumin 3.1 L, Globulin 3.3 H, Albumin/Globulin Ratio 0.9 L 11/24/21 20:16: Lactate 1.7 11/24/21 21:14: Urine Color Dk yellow, Urine Appearance Clear, Urine pH 6.0, Ur Specific [place] 1.010, Urine Protein 1+, Urine Glucose (UA) Negative, Urine Ketones Negative, Urine Blood Negative, Urine Nitrate Negative, Urine Bilirubin Negative, Urine Urobilinogen 0.2, Ur Leukocyte Esterase 1+ A, Urine RBC 10-20, Urine WBC 10-20, Ur Squamous Epith Cells 3-5, Calcium Oxalate Crystal 1+, Urine Bacteria 1+ 11/24/21 21:17: SARS-CoV-2 (PCR) Not detected, Influenza A Untype (PCR) Not detected, Influenza Type B (PCR) Not detected 11/25/21 05:40: WBC 22.4 H* D, RBC 3.71 L, Hgb 11.2 L D, Hct 33.5 L, MCV 90.5, MCH 30.3, MCHC 33.5, RDW 13.9, Plt Count 200, MPV 8.5, Neut % (Auto) 92.6 H, Lymph % (Auto) 2.5 L, [place] % (Auto) 3.6, Eos % (Auto) 1.1, Baso % (Auto) 0.2, Neut # (Auto) 20.7 H, Lymph # (Auto) 0.6 L, [place] # (Auto) 0.8, Eos # (Auto) 0.3, Baso # (Auto) 0.0 11/25/21 05:40: Sodium 125 L, Potassium 3.8, Chloride 98, Carbon Dioxide 23, Anion Gap 7.8, BUN 7, Creatinine 0.40 L, Estimated Creat Clear 55, Estimated GFR 158, Est GFR ( Amer) 191 D, Glucose 90, Calcium 7.7 L Medical History: Reports:: Anxiety, Cancer (pancreatic adenocarcinoma) Denies:: Diabetes Mellitus Type 1, Diabetes Mellitus Type 2, Hypertension, Internal Pacemaker, MRSA, Seizures Assessment and Plan - Assessment and plan all Dx Assessment and Plan for all problems:: Pharmacokinetic dosing service Objective: Age: 71 yo Serum creatinine: 1 mg/dL Height: 65.0 Inches Weight (kg): 66.043 Diagnosis: GASTRITIS/SEPSIS Assessment: IBW (kg): 57.00 Dosing wt(kg): 66.043 Estimated Creatinine clearance (ml/min): 47.1 CRCL method: Cockcroft and Gault using ibw(default). Drug selected: Vancomycin Loading dose (mg): Vd (liters): 46.2 (factor used: 0.7 L/kg) [place] (hr-1): 0.043 Half life (hrs): 16.12 CLvanco=?? 1.987 L/hr Recommended dose: 1000 mg Interval: 24 hrs Infusion time (hrs): 2.0 Predicted peak (mcg/mL): 32.2 Predicted trough (mcg/mL): 12.50 Total body weight is being used for vancomycin dosing. Recommendations: Give Vancomycin 1000 m
--- NOTE | 2021-11-25 09:01 | HMH.HP ---
*Admission Date: 11/24/21 *Chief complaint: Fever and fatigue *History of present illness: 71-year-old white female currently under active treatment for pancreatic adenocarcinoma who approximately 10 days ago came to the emergency department with dysuria symptoms. Culture was negative except for mixed organisms but she was started on Macrobid for 7 days, unfortunately after completing this therapy she became sicker, febrile, very nauseated, vomiting and weak, came to the emergency department late yesterday, found to have significant leukocytosis, hyponatremia and evidence of SIRS and was admitted to hospital for further diagnostic testing, IV fluids and IV antibiotics. [facility] History I have reviewed the patient's past medical history: Yes Medical History: Reports:: Anxiety, Cancer (pancreatic adenocarcinoma) Denies:: Diabetes Mellitus Type 1, Diabetes Mellitus Type 2, Hypertension, Internal Pacemaker, MRSA, Seizures *Have you ever received a pneumonia vaccine?: No *Have you received a flu vaccine this season?: No Other Medical History: Reports: Chemotherapy. Denies: Blood Transfusion Reaction Laterality Cases: Right: Other Other Surgeries: Yes: Cancer Surgery (whipple), Colonoscopy, Dilation and Curettage, Other. No: Pacemaker Amputation: No Fractures: Yes - *Social History Last grade of school completed: Some college Smoking Status: Never smoker Alcohol Intake: never Substance Use Type: other, denies use *Occupational Status:: retired Housing: house Household Members: none *Travel in the last 8 weeks: None - Psychiatric History Pschychiatric History:: Reports:: Anxiety Family Hx:: No significant family history Review of Systems - Review of Systems Review of systems:: pertinent systems reviewed and negative unless documented below Meds Home Medications Medication Instructions Recorded Confirmed Type dpyyri-vnajcpil-yifdvlx 1 cap PO BID 01/31/21 11/24/21 History 36,000-114,000-180,000 unit capsule,delay rel Ondansetron [Zofran 4mg ODT] 4 mg PO BIDP PRN #10 tab 11/09/21 11/24/21 Rx Oxycodone HCl/Acetaminophen 1 tab PO Q6HP PRN #20 tab 11/23/21 11/24/21 Rx [Percocet 5/325mg tablet] Allergies Allergy/AdvReac Type Severity Reaction Status Date / Time Penicillins [PENICILLINS] Allergy Intermediate Verified 11/14/21 14:29 Exam Vital signs and Labs for Last 24 Hours: Temp Pulse Resp BP Pulse Ox 97.3 F L 115 H 16 121/71 92 L 11/25/21 08:00 11/25/21 08:00 11/25/21 08:00 11/25/21 08:00 11/25/21 08:00 Laboratory Results - last 24 hr 11/24/21 19:32: WBC 30.9 H* D, RBC 4.23, Hgb 12.8, Hct 38.0, MCV 89.9, MCH 30.3, MCHC 33.7, RDW 13.9, Plt Count 232, MPV 8.0, Neut % (Auto) 94.8 H, Lymph % (Auto) 1.8 L, [place] % (Auto) 2.7, Eos % (Auto) 0.5, Baso % (Auto) 0.2, Neut # (Auto) 29.2 H, Lymph # (Auto) 0.5 L, [place] # (Auto) 0.8, Eos # (Auto) 0.2, Baso # (Auto) 0.1, Total Counted 100, Neutrophils % (Manual) 84 H, Band Neutrophils % 11.0 H, Lymphocytes % (Manual) 3 L, Monocytes % (Manual) 2, Platelet Estimate Normal, RBC Morphology Normal 11/24/21 19:32: Sodium 119 L, Potassium 3.8, Chloride 91 L, Carbon Dioxide 22, Anion Gap 9.8, BUN 6 L, Creatinine 0.50 L D, Estimated Creat Clear 49, Estimated GFR 122, Est GFR ( Amer) 148 D, Glucose 109 H, Calcium 7.7 L, Total Bilirubin 3.4 H, AST 71 H, ALT 57, Alkaline Phosphatase 607 H, Total Protein 6.4, Albumin 3.1 L, Globulin 3.3 H, Albumin/Globulin Ratio 0.9 L 11/24/21 20:16: Lactate 1.7 11/24/21 21:14: Urine Color Dk yellow, Urine Appearance Clear, Urine pH 6.0, Ur Specific [place] 1.010, Urine Protein 1+, Urine Glucose (UA) Negative, Urine Ketones Negative, Urine Blood Negative, Urine Nitrate Negative, Urine Bilirubin Negative, Urine Urobilinogen 0.2, Ur Leukocyte Esterase 1+ A, Urine RBC 10-20, Urine WBC 10-20, Ur Squamous Epith Cells 3-5, Calcium Oxalate Crystal 1+, Urine Bacteria 1+ 11/24/21 21:17: SARS-CoV-2 (PCR) Not detected, Influenza A Untype (PCR) No
[2021-11-25 11:05] LABS: Lymphocytes % 6 % (10-50); Monocytes % 3 % (2-9); Neutrophils % 90 % (42-76); Total Cells Counted 100
[2021-11-25 11:06] LABS: Platelet Estimate Normal; RBC Morphology Normal
--- NOTE | 2021-11-25 11:53 | PC.NURSE ---
PT IS RESTING IN BED WITH VISITOR AT BEDSIDE. ALERT AND ORIENTED X4. PT WAS HOPING TO GET TO GO HOME TODAY BUT WITH DISCUSSION ON HER FAILING OUTPATIENT TREATMENT STATED IT WOULD BE BETTER FOR HER TO STAY IN THE HOSPITAL FOR NOW AND CONTINUE IV ANTIBIOTICS. LUNG SOUNDS CLEAR. ABDOMEN SOFT/NON TENDER WITH HYPOACTIVE BOWEL SOUNDS. AMBULATES TO THE BATHROOM. WILL CONTINUE TO MONITOR.
[2021-11-26] VITALS: BP 108/56; PULSE 99; RESP 16; TEMP 37.1; O2SAT 93
[2021-11-26 04:00] VITALS: BP 136/86; PULSE 95; RESP 16; TEMP 37.3; O2SAT 97
[2021-11-26 04:39] VITALS: BMI 24.2
--- NOTE | 2021-11-26 06:30 | PC.NURSE ---
NO ACUTE CHANGES IN ASSESSMENT.PT VERY ANXIOUS AND QUESTIONS EVERYTHING,LUNGS CLEAR,RESP.EVEN AND UNLABORED,ACTIVE BOWEL SOUNDS NOTED.PT HAS SLEPT VERY LITTLE WITH ALL THE ANTIBIOIC GIVEN TONIGHT.PT M[facility]I CATH HAS A LITTLE BRUISING OR IRRITATION NOTED UNDER THE TEGADERM,PT REPORTS SHE TOLD THEM(WHO ACCESSED THE [facility]I CATH)THAT SHE WAS ALLERGIC TO TAPE,COULD ONLY HAVE PAPER TAPE,TOLD HER NEEDED TO KEEP IT SEALED FOR INFECTION,SHE V/U
[2021-11-26 06:42] LABS: MANUAL DIFFERENTIAL MANUAL DIFFERENTIAL (MANUAL DIFF)
[2021-11-26 06:50] LABS: Basophils % 0.2 % (0.1-2.0); Eosinophils # 0.1 K/mm3 (0.0-0.4); Eosinophils % 0.7 % (0.1-12.0); Hemoglobin 10.9 g/dL (12.2-16.2); Lymphocytes # 0.8 K/mm3 (0.7-4.5); Lymphocytes % 6.4 % (10-50); Mean Corpuscular HGB Conc 33.2 g/dL (31.8-35.4); Mean Corpuscular Hemoglobin 30.1 pg (27.0-31.2); Mean Corpuscular Volume 90.7 fl (81-99); Mean Platelet Volume 7.8 fl (7.4-10.4); Monocytes # 0.7 K/mm3 (0.1-1.0); Neutrophils # 10.3 K/mm3 (1.8-7.8); Neutrophils % 86.6 % (37.0-80.0); Platelet Count 171 K/mm3 (142-424); Red Blood Count 3.64 M/mm3 (4.20-5.40); White Blood Count 11.8 K/mm3 (4.8-10.8)
--- NOTE | 2021-11-26 07:03 | HMH.DCSUM ---
General - General Admission date:: 11/24/21 Discharge date: 11/26/21 HPI HPI: 71-year-old white female currently under active treatment for pancreatic adenocarcinoma who approximately 10 days ago came to the emergency department with dysuria symptoms. Culture was negative except for mixed organisms but she was started on Macrobid for 7 days, unfortunately after completing this therapy she became sicker, febrile, very nauseated, vomiting and weak, came to the emergency department late yesterday, found to have significant leukocytosis, hyponatremia and evidence of SIRS and was admitted to hospital for further diagnostic testing, IV fluids and IV antibiotics. Hospital Course Hospital Course: Unclear etiology of leukocytosis however showing gradual improvement during admission. Initiated broad-spectrum antibiotics. Will transition oral antibiotics for discharge home. Culture still pending, no blood culture growth after 48 hours. Urine culture pending, concern for UTI. Tolerating p.o. intake. Minimal nausea, treated with as needed medications. Remains afebrile. Very anxious and wanting to go home. At this time I feel she is medically stable to discharge home. Left close follow-up in our office for further management. Examined on day of discharge. Discussed possible side effects of new medication (antibiotics). Objective Vital signs: Temp Pulse Resp BP Pulse Ox 99.1 F 95 H 16 136/86 97 11/26/21 04:00 11/26/21 04:00 11/26/21 04:00 11/26/21 04:00 11/26/21 04:00 Narrative: - Constitutional no acute distress, chronically ill appearing, anxious - *Routine HEENT Exam Head: Present: normocephalic Eye: Present: EOMI, PERRL ENT: Present: mucous membranes dry - *Routine Neck Exam Present: supple. Absent: lymphadenopathy - Routine Chest/Breast/Axilla Exam Chest normal shape. Port-A-Cath in place in the right upper chest wall minimal surrounding redness from dressing - *Routine Respiratory Exam Present: CTA bilaterally - *Routine Cardiovascular Exam Present: RRR - *Routine Abdominal Exam Present: soft, normoactive bowel sounds. Absent: tenderness - *Routine Extremities Exam Absent: cyanosis, clubbing, edema - *Routine Skin Exam Present: warm. Absent: rash - *Routine Neurological Exam Present: alert, oriented X3, anxious Results Labs on day of discharge: Labs from last 24 hours 11/26/21 11/25/21 06:30 05:40 WBC 11.8 H D RBC 3.64 L Hgb 10.9 L Hct 33.0 L MCV 90.7 MCH 30.1 MCHC 33.2 RDW 14.0 Plt Count 171 MPV 7.8 Neut % (Auto) 86.6 H Lymph % (Auto) 6.4 L [place] % (Auto) 6.0 Eos % (Auto) 0.7 Baso % (Auto) 0.2 Neut # (Auto) 10.3 H Lymph # (Auto) 0.8 [place] # (Auto) 0.7 Eos # (Auto) 0.1 Baso # (Auto) 0.0 Total Counted 100 Neutrophils % (Manual) 90 H Band Neutrophils % 1.0 Lymphocytes % (Manual) 6 L Monocytes % (Manual) 3 Platelet Estimate Normal RBC Morphology Normal Preliminary micro results at discharge 11/24/21 21:14 Urine Culture - Preliminary Urine,Clean Catch DS: Diagnosis - Discharge Diagnosis (1) SIRS (systemic inflammatory response syndrome) Status: Acute (2) Gastroenteritis Status: Acute (3) Pancreatic cancer Status: Acute Discharge Plan - Patient Discharge Instructions ACTIVITY: Continue current activity DIET: continue same diet Patient Instructions: Sepsis, DI for Sepsis -- Adult, DI for Leukocytosis - Follow up Plan Follow up with: Eric Richmond MD [Primary Care Provider] - 12/05/21 3:15 pm Disposition: Home, Self-Care Condition at discharge:: Stable Home Medications: Home Medications Medication Instructions Recorded Confirmed Type Ondansetron [Zofran 4mg ODT] 4 mg PO BIDP PRN #10 tab 11/09/21 11/24/21 Rx Lipase/Protease/Amylase [Asaf Forrest 1 each PO AC 15 Days #45 cap 11/26/21 Rx 36,000 Units Capsule] Oxycodone HCl/Acetaminophe
[2021-11-26 07:13] LABS: Anion Gap 7.4 mEq/L (5-15); Blood Urea Nitrogen 8 mg/dl (7-17); Calcium 7.6 mg/dl (8.4-10.2); Carbon Dioxide 22 mmol/L (22.0-30.0); Chloride 102 mmol/L (98-107); Creatinine Clearance Estimated 54 mL/min (50-200); Estimated Glomerular Filt Rate 158 ml/min (>60); GFR (African American) 191 ML/MIN (>60); Glucose 92 mg/dl (74-100); Potassium 3.4 mmoL/L (3.5-5.1); Sodium 128 mmol/L (136-145)
[2021-11-26 08:00] VITALS: BP 120/65; PULSE 113; RESP 17; TEMP 36.8; O2SAT 96
--- NOTE | 2021-11-26 09:00 | PC.NURSE ---
CONTACTED CARE MANAGEMENT REGARDING PT WANTING HOSPICE CONSULT PRIOR TO D/C
[2021-11-26 09:29] LABS: Eosinophils % 3 % (0-3); Lymphocytes % 1 % (10-50); Monocytes % 2 % (2-9); Neutrophils % 94 % (42-76); Total Cells Counted 100
[2021-11-26 09:30] LABS: Platelet Estimate Normal
--- NOTE | 2021-11-26 10:19 | SW/DCPLANNER ---
Addendum entered by Eladia Jarquin 11/26/21 13:14: Toshia singh/ [facility] spoke with patient and the decision was made for patient to be admitted with Hospice services tomorrow from home. Original Note: Patient information has been faxed to Toshia singh/ [facility] to follow up with patient at home. Patient will discharge later today and is interested in Hospice services at home.
--- NOTE | 2021-11-26 12:00 | PC.NURSE ---
DR AZUL MADE AWARE OF PT APPREHENSION REGARDING DISCHARGE. AT BEDSIDE AT THIS TIME.
--- NOTE | 2021-11-26 14:49 | PC.NURSE ---
spoke with pharmacy who is in contact with md about patient home creon order and if promethazine is being sent to patient pharmacy. went over home teaching with patient. tips to help with nausea. will deaccess port
--- NOTE | 2021-11-26 15:40 | PC.NURSE ---
LEFT A MESSAGE AT [facility] REGARDING PT PRESCIPTIONS.
--- NOTE | 2021-11-29 12:27 | CARE MANAGER ---
Contacted patient and she is receiving care from Hospice. She doesn't have time to talk, but she is doing ok and denies questions and concerns at this time. SURI Paige
== END 2021-11-26 15:48 | disposition home or self-care (01) ==
LOC: ER 18:16 → 2ND 21:37
PROVIDERS: Admitting Provider Family Medicine; Emergency Provider Student in an Organized Health Care Education/Training Program; PCP Internal Medicine Adolescent Medicine; Visit Provider Internal Medicine Adolescent Medicine
DX: K52.9 Noninfective gastroenteritis and colitis, unspecified (principal); C25.0 Malignant neoplasm of head of pancreas; Z20.822 Contact with and (suspected) exposure to COVID-19; Z79.899 Other long term (current) drug therapy
CPT/HCPCS: G0378; 36415; 71045; 74177; 80048; 80053; 81001; 83605; 85007; 85014; 85018; 85025; 85048; 85049; 87040; 87086; 96365; 96366; 96375; 99285; C9803; J1642; J3370; Q9967; U0003; U0005

== ENCOUNTER 2021-12-04 17:56 | Emergency (ER) | payer MEDICARE, BC, SELFPAY ==
[2021-12-04 18:04] VITALS: BP 126/84; PULSE 136; RESP 18; TEMP 36.7; O2SAT 97; BMI 22.4
[2021-12-04 19:04] LABS: Basophils # 0.1 K/mm3 (0-0.2); Basophils % 0.8 % (0.1-2.0); Eosinophils # 0.1 K/mm3 (0.0-0.4); Eosinophils % 0.6 % (0.1-12.0); Hematocrit 40.6 % (37.0-47.0); Hemoglobin 13.1 g/dL (12.2-16.2); Lymphocytes # 0.9 K/mm3 (0.7-4.5); Lymphocytes % 7.4 % (10-50); Mean Corpuscular HGB Conc 32.4 g/dL (31.8-35.4); Mean Corpuscular Hemoglobin 29.5 pg (27.0-31.2); Mean Corpuscular Volume 91.1 fl (81-99); Mean Platelet Volume 7.8 fl (7.4-10.4); Monocytes # 0.7 K/mm3 (0.1-1.0); Monocytes % 5.8 % (1.7-9.3); Neutrophils % 85.4 % (37.0-80.0); Platelet Count 246 K/mm3 (142-424); Red Blood Count 4.45 M/mm3 (4.20-5.40); Red Cell Distribution Width 14.1 % (11.5-17.5); White Blood Count 11.7 K/mm3 (4.8-10.8)
[2021-12-04 19:05] LABS: MANUAL DIFFERENTIAL MANUAL DIFFERENTIAL (MANUAL DIFF)
[2021-12-04 19:08] LABS: Alanine Aminotransferase 35 U/L (12-78); Albumin Level 2.8 g/dl (3.5-5.0); Albumin/Globulin Ratio 0.9 (1.1-1.8); Alkaline Phosphatase 580 U/L (38-126); Anion Gap 9.5 mEq/L (5-15); Aspartate Amino Transferase 68 U/L (14-36); Bilirubin,Total 1.5 mg/dl (0.2-1.3); Blood Urea Nitrogen 5 mg/dl (7-17); Calcium 8.1 mg/dl (8.4-10.2); Carbon Dioxide 23 mmol/L (22.0-30.0); Chloride 96 mmol/L (98-107); Creatinine Clearance Estimated 51 mL/min (50-200); Estimated Glomerular Filt Rate 158 ml/min (>60); GFR (African American) 191 ML/MIN (>60); Globulin 3.2 g/dL (1.3-3.2); Glucose 112 mg/dl (74-100); Potassium 3.5 mmoL/L (3.5-5.1); Sodium 125 mmol/L (136-145)
[2021-12-04 19:30] VITALS: BP 121/61; PULSE 120; RESP 20; O2SAT 97
--- NOTE | 2021-12-04 19:30 | XR_ITS ---
PROCEDURE INFORMATION: Exam: XR Chest Exam date and time: 12/04/2021 7:36 PM Age: 71 years old Clinical indication: Patient HX: Nausea and vomiting, patient states she was seen in er last week for same problem. TECHNIQUE: Imaging protocol: XR of the chest. Views: 1 view. COMPARISON: CR XR CHEST PORTABLE 11/24/2021 8:46 PM FINDINGS: Tubes, catheters and devices: right-sided MediPort is stable with tip overlying the right atrium. Lungs: Diminished lung volumes with persistent interstitial and nodular airspace opacities throughout bilateral lungs. Pleural spaces: No pneumothorax. Heart/Mediastinum: No cardiomegaly. Bones/joints: No acute abnormality. IMPRESSION: Diminished lung volumes with persistent interstitial and nodular airspace opacities throughout bilateral lungs.
--- NOTE | 2021-12-04 19:50 | PC.NURSE ---
PT CAREGIVER AT BEDSIDE. PT DENIES PAIN AND NAUSEA. WCM.
[2021-12-04 20:00] VITALS: BP 114/70
--- NOTE | 2021-12-04 20:12 | HMH.EDGENADL ---
ED Disposition Clinical Impression: Nausea, Decreased appetite Disposition: Home, Self-Care Condition on Discharge: Fair Instructions: DI for Nausea -- Adult, DI for Poor Appetite Additional Instructions: You have been evaluated for decreased appetite, dehydration. Please try to eat small meals frequently. Stay hydrated with water, Gatorade, Ensure, boost. Take medications as prescribed. Follow-up with your primary care doctor in 1 to 2 days for symptom recheck. Follow-up with your oncologist as scheduled. Return to the emergency department for any new or worsening symptoms, inability to eat, vomiting, other concerns. Referrals: Eric Richmond MD [Primary Care Provider] - Time of Disposition: 20:55 - Critical Care Critical Care Time: No Attestation: On 12/04/21, the high probability of a clinically significant, sudden or life threatening deterioration of the following system(s) required my full and direct attention, intervention and personal management. The time I documented below is in addition to time spent performing reported procedures but includes the following listed in this critical care notation. Medical Decision Making - Medical Records Medical records reviewed: Yes: I reviewed the patient's medical records. - Mark Inquiry Pt receiving controlled substance: No Vital Signs: 12/04/21 18:04 12/04/21 19:30 Temperature 98.0 F Temperature Source Oral Pulse Rate 120 H Pulse Rate [Left Radial] 136 H Respiratory Rate 18 20 Blood Pressure 121/61 Blood Pressure [Left Arm] 126/84 Blood Pressure Mean 78 Blood Pressure Mean [Left Arm] 98 Blood Pressure Source [Left Arm] Automatic Cuff Blood Pressure Position [Left Arm] Sitting 02 Sat by Pulse Oximetry 97 97 Oxygen Delivery Method Room Air - Lab Data Lab Results 12/04/21 18:31: WBC 11.7 H, RBC 4.45, Hgb 13.1, Hct 40.6, MCV 91.1, MCH 29.5, MCHC 32.4, RDW 14.1, Plt Count 246, MPV 7.8, Neut % (Auto) 85.4 H, Lymph % (Auto) 7.4 L, [place] % (Auto) 5.8, Eos % (Auto) 0.6, Baso % (Auto) 0.8, Neut # (Auto) 10.0 H, Lymph # (Auto) 0.9, [place] # (Auto) 0.7, Eos # (Auto) 0.1, Baso # (Auto) 0.1, Total Counted 100, Neutrophils % (Manual) 79 H, Lymphocytes % (Manual) 13, Monocytes % (Manual) 8, Anisocytosis 1+ 12/04/21 18:31: Sodium 125 L, Potassium 3.5, Chloride 96 L, Carbon Dioxide 23, Anion Gap 9.5, BUN 5 L, Creatinine 0.40 L, Estimated Creat Clear 51, Estimated GFR 158, Est GFR ( Amer) 191, Glucose 112 H, Calcium 8.1 L, Total Bilirubin 1.5 H, AST 68 H, ALT 35, Alkaline Phosphatase 580 H, Total Protein 6.0 L, Albumin 2.8 L, Globulin 3.2, Albumin/Globulin Ratio 0.9 L 12/04/21 18:31: Lipase 16 L Result diagrams: 12/04/21 18:31 12/04/21 18:31 Orders (Tests/Meds): ED MEDICATIONS Generic Name Dose Route Start Last Admin Trade Name Freq PRN Reason Stop Dose Admin Sodium Chloride 1,000 mls @ 999 mls/hr 12/04/21 18:30 12/04/21 18:34 Sod Chlor 0.9% 1000ml Bag IV 12/04/21 19:30 999 mls/hr .Q1H1M ALCIRA Administration Sodium Chloride 10 ml 12/04/21 18:18 Sodium Chloride 0.9% 10ml Flush Syringe IV 01/03/22 18:17 NEEDED PRN Maintain IV Site Discontinued Medications Generic Name Dose Route Start Last Admin Trade Name Freq PRN Reason Stop Dose Admin Morphine Sulfate 4 mg 12/04/21 18:37 12/04/21 18:40 Morphine 4mg/Ml Syringe IV 12/04/21 18:38 4 mg ONCE ONE Administration Promethazine HCl 12.5 mg 12/04/21 18:37 12/04/21 18:40 Promethazine Hcl 25mg/Ml 1ml Vial IV 12/04/21 18:38 12.5 mg ONCE ONE Administration Sodium Chloride 25 ml 12/04/21 18:37 12/04/21 18:40 Sodium Chloride 0.9% 25ml Bag IV 12/04/21 18:38 25 ml ONCE ONE Administration ORDERS Category Date Time Status Urinalysis and Microscopic Stat Lab 12/04/21 19:30 Ordered Medical Decision Narrative: In summary this is a 71-year-old female with history of pancreatic cancer presenting to the emergency department with decre
[2021-12-04 20:25] LABS: Anisocytosis 1+; Lymphocytes % 13 % (10-50); Monocytes % 8 % (2-9); Neutrophils % 79 % (42-76); Total Cells Counted 100
--- NOTE | 2021-12-04 20:26 | ECG_ITS ---
APPROVED REPORT Exam: Resting ECG HR:117 bpm ECG Measurements Heart Rate 117 AXES NH 150 P 43 QRSd 78 QRS 54 QT 323 T 21 QTc 392 Conclusion SINUS TACHYCARDIA POSSIBLE ANTERIOR MYOCARDIAL INFARCTION , PROBABLY OLD [30 ms Q WAVE IN V3/V4, OR R < 0.2 mV IN V4] ABNORMAL RHYTHM ECG UNCONFIRMED REPORT Electronically signed by : Eric Richmond MD 12/06/2021 19:49:51
[2021-12-04 20:36] LABS: Lipase 16 U/L (23-300)
[2021-12-04 20:45] VITALS: BP 112/72; PULSE 112; RESP 17; O2SAT 96
[2021-12-04 21:30] VITALS: BP 116/78; PULSE 114; RESP 18; O2SAT 97
--- NOTE | 2021-12-04 21:40 | PC.NURSE ---
APPLE JUICE GIVEN TO PATIENT AT MD REQUEST. MD MADE AWARE THAT PT REQUEST TO BE DISCHARGED. NO COMPLAINTS VOICED. NO ACUTE DISTRESS NOTED.
[2021-12-04 21:56] VITALS: BP 133/78; PULSE 102; RESP 18; TEMP 36.7; O2SAT 95
== END 2021-12-04 22:01 | disposition home or self-care (01) ==
PROVIDERS: Emergency Medicine; Emergency Provider Emergency Medicine; PCP Internal Medicine Adolescent Medicine
DX: C25.9 Malignant neoplasm of pancreas, unspecified (principal); F41.9 Anxiety disorder, unspecified
CPT/HCPCS: 71045; 80053; 83690; 85007; 85025; 93005; 96365; 96375; 99284; J1642

== ENCOUNTER 2021-12-07 02:36 | Emergency (ER) | payer MEDICARE, BC, SELFPAY ==
[2021-12-07 02:37] VITALS: BP 149/83; PULSE 172; RESP 22; TEMP 36.9; O2SAT 99; BMI 22.4
--- NOTE | 2021-12-07 02:54 | ECG_ITS ---
APPROVED REPORT Exam: Resting ECG HR:165 bpm ECG Measurements Heart Rate 165 AXES WA 67 P 221 QRSd 78 QRS 67 QT 276 T 41 QTc 367 Conclusion SINUS TACHYCARDIA WITH SHORT WA INTERVAL Old anterior changes UNCONFIRMED REPORT Electronically signed by : Eric Richmond MD 12/08/2021 07:50:42
--- NOTE | 2021-12-07 03:03 | XR_ITS ---
PROCEDURE INFORMATION: Exam: XR Chest Exam date and time: 12/07/2021 3:06 AM Age: 71 years old Clinical indication: Shortness of breath and other: High heart rate; Patient HX: HX pancreatic cancer; Additional info: Shortness of breath high heart rate TECHNIQUE: Imaging protocol: XR of the chest. Views: 1 view. COMPARISON: CR XR CHEST PORTABLE 12/04/2021 7:36 PM FINDINGS: Tubes, catheters and devices: Right subclavian Port-A-Cath terminates in the region of the superior cavoatrial junction. Lungs: Redemonstration of innumerable metastatic pulmonary nodules. No definite new focal airspace consolidation. Pleural spaces: Unremarkable. No pleural effusion. No pneumothorax. Heart/Mediastinum: Unremarkable. No cardiomegaly. Bones/joints: Remote left-sided rib fractures. IMPRESSION: No substantial interval change. Similar appearance of innumerable metastatic pulmonary nodules.
[2021-12-07 03:08] VITALS: BP 133/92; PULSE 173; RESP 28; O2SAT 97
[2021-12-07 03:21] LABS: Basophils # 0.1 K/mm3 (0-0.2); Basophils % 0.3 % (0.1-2.0); Eosinophils # 0.1 K/mm3 (0.0-0.4); Eosinophils % 0.5 % (0.1-12.0); Hematocrit 41.1 % (37.0-47.0); Hemoglobin 13.1 g/dL (12.2-16.2); Lymphocytes # 0.7 K/mm3 (0.7-4.5); Lymphocytes % 2.9 % (10-50); Mean Corpuscular HGB Conc 31.8 g/dL (31.8-35.4); Mean Corpuscular Hemoglobin 29.3 pg (27.0-31.2); Mean Corpuscular Volume 91.9 fl (81-99); Monocytes % 4.1 % (1.7-9.3); Neutrophils # 23.1 K/mm3 (1.8-7.8); Neutrophils % 92.1 % (37.0-80.0); Platelet Count 290 K/mm3 (142-424); Red Blood Count 4.47 M/mm3 (4.20-5.40); Red Cell Distribution Width 14.2 % (11.5-17.5)
[2021-12-07 03:28] LABS: Chloride 97 mmol/L (98-107); Sodium 125 mmol/L (136-145); White Blood Count 25.1 K/mm3 (4.8-10.8)
[2021-12-07 03:29] LABS: MANUAL DIFFERENTIAL MANUAL DIFFERENTIAL (MANUAL DIFF); Potassium 3.9 mmoL/L (3.5-5.1)
[2021-12-07 03:30] VITALS: BP 138/84; PULSE 126; RESP 15; O2SAT 95
[2021-12-07 03:31] LABS: Alanine Aminotransferase 83 U/L (12-78); Anion Gap 9.9 mEq/L (5-15); Aspartate Amino Transferase 212 U/L (14-36); Bilirubin, Conjugated 1.1 mg/dL (0.0-0.3); Bilirubin,Direct 1.9 mg/dl (0.0-0.4); Bilirubin,Indirect 1.4 mg/dL (0.0-0.9); Bilirubin,Total 3.3 mg/dl (0.2-1.3); Bilirubin,Unconjugated 1.3 mg/dL (0.0-1.1); Blood Urea Nitrogen 10 mg/dl (7-17); Carbon Dioxide 22 mmol/L (22.0-30.0); Creatinine Clearance Estimated 51 mL/min (50-200); Estimated Glomerular Filt Rate 122 ml/min (>60); GFR (African American) 148 ML/MIN (>60)
[2021-12-07 03:32] LABS: Albumin Level 2.8 g/dl (3.5-5.0); Calcium 7.6 mg/dl (8.4-10.2); Glucose 119 mg/dl (74-100)
[2021-12-07 03:37] LABS: C-Reactive Protein 46.8 mg/L (0-4); Hypochromasia 1+; Lymphocytes % 7 % (10-50); Monocytes % 2 % (2-9); Neutrophils % 83 % (42-76); Platelet Estimate Normal; Total Cells Counted 100
[2021-12-07 03:38] LABS: Alkaline Phosphatase 1127 U/L (38-126); Lactic Acid 3.1 mmol/L (0.7-2.1)
[2021-12-07 03:44] LABS: Erythrocyte Sedimentation Rate 39 mm/hr (0-30)
[2021-12-07 03:46] LABS: Troponin I 0.02 ng/ml (0.00-0.034)
[2021-12-07 03:51] LABS: Procalcitonin 0.489 ng/mL (0.0-2.0)
[2021-12-07 04:30] VITALS: BP 114/61; PULSE 130; RESP 21; O2SAT 94
--- NOTE | 2021-12-07 05:07 | HMH.EDNVD ---
ED Disposition Clinical Impression: Severe sepsis with acute organ dysfunction Pancreatic cancer Qualifiers: Pancreatic malignancy location: unspecified Qualified Code(s): C25.9 - Malignant neoplasm of pancreas, unspecified Disposition: Home, Self-Care Condition on Discharge: Serious Instructions: DI for Nausea -- Adult Referrals: Eric Richmond MD [Primary Care Provider] - - Critical Care Critical Care Time: No Attestation: On 12/07/21, the high probability of a clinically significant, sudden or life threatening deterioration of the following system(s) required my full and direct attention, intervention and personal management. The time I documented below is in addition to time spent performing reported procedures but includes the following listed in this critical care notation. Medical Decision Making - Medical Records Medical records reviewed: Yes: I reviewed the patient's medical records. - Mark Inquiry Pt receiving controlled substance: No Vital Signs: 12/07/21 02:37 12/07/21 03:08 12/07/21 03:30 Temperature 98.4 F Temperature Source Oral Pulse Rate 173 H 126 H Pulse Rate [Left Radial] 172 H Respiratory Rate 22 28 H 15 Blood Pressure 133/92 H 138/84 Blood Pressure [Left Arm] 149/83 H Blood Pressure Mean 110 Blood Pressure Mean [Left Arm] 105 Blood Pressure Position [Left Arm] Sitting 02 Sat by Pulse Oximetry 99 97 95 Oxygen Delivery Method Room Air Room Air - Lab Data Lab results reviewed: Yes: I reviewed the patient's lab results. Lab Results 12/07/21 03:07: WBC 25.1 H* D, RBC 4.47, Hgb 13.1, Hct 41.1, MCV 91.9, MCH 29.3, MCHC 31.8, RDW 14.2, Plt Count 290, MPV 8.0, Neut % (Auto) 92.1 H, Lymph % (Auto) 2.9 L, [place] % (Auto) 4.1, Eos % (Auto) 0.5, Baso % (Auto) 0.3, Neut # (Auto) 23.1 H, Lymph # (Auto) 0.7, [place] # (Auto) 1.0, Eos # (Auto) 0.1, Baso # (Auto) 0.1, Total Counted 100, Neutrophils % (Manual) 83 H, Band Neutrophils % 8.0, Lymphocytes % (Manual) 7 L, Monocytes % (Manual) 2, Platelet Estimate Normal, Hypochromasia 1+, ESR 39 H 12/07/21 03:07: Sodium 125 L, Potassium 3.9, Chloride 97 L, Carbon Dioxide 22, Anion Gap 9.9, BUN 10 D, Creatinine 0.50 L D, Estimated Creat Clear 51, Estimated GFR 122, Est GFR ( Amer) 148 D, Glucose 119 H, Calcium 7.6 L, Total Bilirubin 3.3 H, Direct Bilirubin 1.9 H, Conjugated Bilirubin 1.1 H, Indirect Bilirubin 1.4 H, Unconjugated Bilirubin 1.3 H, AST 212 H D, ALT 83 H D, Alkaline Phosphatase 1127 H, Troponin I 0.02, C-Reactive Protein 46.8 H, Total Protein 6.0 L, Albumin 2.8 L, Procalcitonin 0.489 12/07/21 03:07: Lactate 3.1 H Result diagrams: 12/07/21 03:07 12/07/21 03:07 Orders (Tests/Meds): ED MEDICATIONS Generic Name Dose Route Start Last Admin Trade Name Freq PRN Reason Stop Dose Admin Sodium Chloride 1,000 mls @ 999 mls/hr 12/07/21 03:00 12/07/21 03:04 Sod Chlor 0.9% 1000ml Bag IV 12/07/21 04:00 999 mls/hr .Q1H1M ALCIRA Administration Sodium Chloride 1,840 mls @ 920 mls/hr 12/07/21 04:31 Sod Chlor 0.9% 1000ml Bag 30 ml/kg infuse over 2 hr (1840 ml) 12/07/21 06:30 IV .Q2H ONE Sodium Chloride 1,000 mls @ 999 mls/hr 12/07/21 05:00 Sod Chlor 0.9% 1000ml Bag IV 12/07/21 06:00 .Q1H1M ALCIRA Discontinued Medications Generic Name Dose Route Start Last Admin Trade Name Freq PRN Reason Stop Dose Admin Metoprolol Tartrate 2.5 mg 12/07/21 03:22 12/07/21 03:24 Metoprolol Tartrate 5mg/5ml Vial IV 12/07/21 03:23 2.5 mg ONCE ONE Administration ORDERS Category Date Time Status XR chest portable Stat Exams 12/07/21 03:03 Taken Troponin I Q3H Lab 12/07/21 06:00 Ordered Troponin I Q3H Lab 12/07/21 09:00 Ordered Blood Culture Stat Micro 12/07/21 03:07 Received - Radiology Data #1 Image(s): Chest Image Reviewed: Yes I reviewed the patient's radiology image Preliminary Findings: Abnormal - ECG Data Tracing #1 Arrhythmias present: sinus tach I
--- NOTE | 2021-12-07 05:07 | PC.NURSE ---
PT AND CAREGIVER REQUEST TO GO HOME. PT AND CAREGIVER ARE AWARE THAT PATIENT RADIOLOGY RESULTS ARE NOT BACK AT THIS TIME, THAT LAB WORK IS ABNORMAL AND PT MAY NEED ADMISSION. PT STATES THAT SHE WOULD LIKE TO GO HOME. DR. CRISOSTOMO MADE AWARE.
[2021-12-07 05:30] VITALS: BP 111/68; PULSE 122; RESP 22; TEMP 36.9; O2SAT 94
== END 2021-12-07 05:38 | disposition home or self-care (01) ==
PROVIDERS: Emergency Provider Emergency Medicine; PCP Internal Medicine Adolescent Medicine
DX: C25.9 Malignant neoplasm of pancreas, unspecified (principal); R65.20 Severe sepsis without septic shock; F41.9 Anxiety disorder, unspecified; R00.0 Tachycardia, unspecified
CPT/HCPCS: 71045; 80048; 80076; 83605; 84145; 84484; 85007; 85025; 85651; 86140; 87040; 93005; 96365; 96366; 96375; 99284; J1642